=== PATIENT | male | born 1935 | race Caucasian/White ===

== ENCOUNTER 2017-07-10 10:30 | Emergency (ER) | payer MEDICARE, BC ==
[2017-07-10 12:05] LABS: Bilirubin Negative (Negative); Blood, Urine Large (Negative); Glucose, Urine (Dipstick) Negative (Negative); Ketone, Urine Negative (Negative); Nitrite Negative (Negative); Protein, Urine (Dipstick) 100 mg/dL (Neg-Trace); Urobilinogen 0.2 mg/dL (0.2-1.0)
[2017-07-10 12:06] LABS: Bacteria/HPF Rare-Few HPF (None Seen); Hyaline Casts/LPF NONE SEEN LPF (0-3 Hyaline); RBC/HPF GREATER THAN 50-TNTC HPF (0-3); Squamous Epithelial 0-3 HPF (0-3)
[2017-07-10 12:37] LABS: #Eosinphils 0.2 thou/uL (0.0-0.7); #Lymphocytes 0.8 thou/uL (1.20-3.40); #Monocytes 1.4 thou/uL (0.11-0.59); #Neutrophils 12.2 thou/uL (1.40-6.50); %Basophils 0.1 % (0.0-1.0); %Eosinophils 1.1 % (0.0-10.0); %Lymphocytes 5.3 % (21.0-51.0); %Monocytes 9.4 % (0.0-10.0); Hematocrit 53.4 % (42.0-52.0); Mean Platelet Volume 6.5 fL (7.4-10.4); Red Blood Cell (RBC) Count 5.76 mill/uL (4.70-6.10); White Blood Cell (WBC) Count 14.5 thou/uL (4.8-10.8)
[2017-07-10 13:03] LABS: ALT (SGPT) 27 U/L (8-55); AST (SGOT) 23 U/L (5-34); Alkaline Phosphatase 94 U/L (40-150); Anion Gap 12 mmol/L (10-20); BUN (Urea Nitrogen) 18 mg/dL (8.4-25.7); Bilirubin, Total 1.3 mg/dL (0.2-1.2); Calc. Creatinine Clearance 0 mL/min (70-130); Calcium 9.8 mg/dL (7.8-10.44); Carbon Dioxide 29 mmol/L (23-31); Chloride 98 mmol/L (98-107); Estimated GFR-MDRD 73
== END 2017-07-10 13:30 | disposition home or self-care (01) ==
LOC: ERS 10:30
DX: N30.01 Acute cystitis with hematuria (principal); I10 Essential (primary) hypertension; I25.10 Atherosclerotic heart disease of native coronary artery without angina pectoris; J44.9 Chronic obstructive pulmonary disease, unspecified; M10.9 Gout, unspecified; Z79.82 Long term (current) use of aspirin; Z79.899 Other long term (current) drug therapy
CPT/HCPCS: 36415; 80053; 81003; 81015; 85025; 87077; 87086; 87186; 99283

== ENCOUNTER 2017-12-23 17:07 | Emergency (ER) | payer MEDICARE, BC ==
[2017-12-23 17:59] LABS: Bilirubin Negative (Negative); Blood, Urine Negative (Negative); Clarity CLEAR (Clear); Glucose, Urine (Dipstick) Negative (Negative); Leukocyte Negative (Negative); Nitrite Negative (Negative); Protein, Urine (Dipstick) Negative (Neg-Trace); Specific Gravity, Urine 1.016 (1.002-1.036); Urobilinogen 0.2 mg/dL (0.2-1.0)
[2017-12-23 18:13] LABS: #Eosinphils 0.2 thou/uL (0.0-0.7); #Neutrophils 6.7 thou/uL (1.40-6.50); %Basophils 0.3 % (0.0-1.0); %Eosinophils 2.3 % (0.0-10.0); %Lymphocytes 11.1 % (21.0-51.0); %Monocytes 10.8 % (0.0-10.0); %Neutrophils 75.5 % (42.0-75.0); Hemoglobin 17.1 g/dL (14.0-18.0); Mean Corpuscular Hemoglobin 30.8 pg (27.0-31.0); Mean Corpuscular Volume 90.5 fl (80.0-94.0); Mean Platelet Volume 6.6 fL (7.4-10.4); Platelet Count 207 thou/uL (130-400); RBC Distribution Width 12.9 % (11.5-14.5); Red Blood Cell (RBC) Count 5.56 mill/uL (4.70-6.10); White Blood Cell (WBC) Count 8.8 thou/uL (4.8-10.8)
[2017-12-23 18:18] LABS: INR-International Normal Ratio 1.1; PTT 26.7 SEC (22.9-36.1); Prothrombin Time 14.2 SEC (12.0-14.7)
[2017-12-23 18:34] LABS: ALT (SGPT) 19 U/L (8-55); AST (SGOT) 23 U/L (5-34); Albumin 4.1 g/dL (3.4-4.8); Alkaline Phosphatase 76 U/L (40-150); Anion Gap 13 mmol/L (10-20); BUN (Urea Nitrogen) 15 mg/dL (8.4-25.7); Calc. Creatinine Clearance 0 mL/min (70-130); Calcium 9.5 mg/dL (7.8-10.44); Carbon Dioxide 26 mmol/L (23-31); Chloride 100 mmol/L (98-107); Estimated GFR-MDRD 76; Globulin 2.6 g/dL (2.4-3.5); Glucose 114 mg/dL (83-110); Iron 63 ug/dL (65-175); Iron Binding Capacity, Total 328 mcg/dL (261-462); Potassium 3.5 mmol/L (3.5-5.1); Protein, Total 6.7 g/dL (5.8-8.1); Sodium 135 mmol/L (136-145)
== END 2017-12-23 19:13 | disposition home or self-care (01) ==
LOC: ERS 17:07
DX: K64.4 Residual hemorrhoidal skin tags (principal); I25.10 Atherosclerotic heart disease of native coronary artery without angina pectoris; I10 Essential (primary) hypertension; J44.9 Chronic obstructive pulmonary disease, unspecified; M10.9 Gout, unspecified; Z79.899 Other long term (current) drug therapy; Z79.82 Long term (current) use of aspirin
CPT/HCPCS: 36415; 80053; 81003; 82274; 82728; 83540; 83550; 85025; 85610; 85730; 86850; 86900; 86901; 99284

== ENCOUNTER 2018-09-18 00:36 | Inpatient (IN) | payer MEDICARE, BC ==
[2018-09-18 01:33] LABS: #Basophils 0.1 thou/uL (0.0-0.2); #Lymphocytes 0.6 thou/uL (1.20-3.40); #Monocytes 1.8 thou/uL (0.11-0.59); #Neutrophils 13.6 thou/uL (1.40-6.50); %Basophils 0.5 % (0.0-1.0); %Eosinophils 0.2 % (0.0-10.0); %Lymphocytes 3.7 % (21.0-51.0); %Monocytes 10.9 % (0.0-10.0); %Neutrophils 84.7 % (42.0-75.0); Hemoglobin 17.3 g/dL (14.0-18.0); Mean Corpuscular HGB CONC 33.2 g/dL (32.0-36.0); Mean Corpuscular Hemoglobin 30.5 pg (27.0-31.0); Mean Corpuscular Volume 91.9 fL (78.0-98.0); Mean Platelet Volume 6.7 fL (7.4-10.4); Platelet Count 235 thou/uL (130-400); RBC Distribution Width 12.9 % (11.5-14.5); Red Blood Cell (RBC) Count 5.68 mill/uL (4.70-6.10); White Blood Cell (WBC) Count 16.1 thou/uL (4.8-10.8)
[2018-09-18] MEDS ORDERED: Ondansetron PF 4 MG/2 ML Vial ONE ×2 (01:34→06:12)
[2018-09-18 01:52] LABS: ALT (SGPT) 21 U/L (8-55); AST (SGOT) 18 U/L (5-34); Albumin 3.9 g/dL (3.4-4.8); Alkaline Phosphatase 75 U/L (40-150); Anion Gap 16 mmol/L (10-20); BUN (Urea Nitrogen) 24 mg/dL (8.4-25.7); Calc. Creatinine Clearance 0 mL/min (70-130); Calcium 9.4 mg/dL (7.8-10.44); Carbon Dioxide 26 mmol/L (23-31); Chloride 95 mmol/L (98-107); Estimated GFR-MDRD 72; Globulin 2.6 g/dL (2.4-3.5); Glucose 169 mg/dL (83-110); Potassium 3.6 mmol/L (3.5-5.1); Protein, Total 6.5 g/dL (5.8-8.1); Sodium 133 mmol/L (136-145)
[2018-09-18] MEDS ORDERED: diphenhydrAMINE 50 MG CAP ONE (02:49)
[2018-09-18] MEDS ORDERED: Morphine 4 MG/ML VIAL ONE ×2 (02:49→06:11)
[2018-09-18] MEDS ORDERED: HYDROcodone/Acetaminophen 5/325 mg Tablet PO PRN ×3 (06:00→20:11)
[2018-09-18] MEDS ORDERED: Ondansetron PF 4 MG/2 ML Vial IVP PRN (06:00)
[2018-09-18] MEDS ORDERED: Acetaminophen 325 MG TAB PO PRN (06:00)
[2018-09-18] MEDS ORDERED: Ondansetron ODT 4 MG TAB SL PRN (06:00)
[2018-09-18] MEDS ORDERED: cefTRIAXone\\ROCEPHIN 1 GM VIAL ONE (06:12)
[2018-09-18] MEDS ORDERED: Acetaminophen 500 MG TAB ONE (06:12)
[2018-09-18 06:41] LABS: Troponin I Less than 0.010 ng/mL (< 0.028)
--- NOTE | 2018-09-18 07:46 | CT ---
CT OF THE BRAIN WITHOUT CONTRAST: INDICATION: History of headache, dizziness, and shortness of breath. COMPARISON: None. FINDINGS: There is mild generalized cerebral and cerebellar atrophy. There is mild chronic small-vessel white matter ischemic change. The septum pellucidum and third ventricle are midline. No acute infarct, he morrhage, or infarct is present. The sitka lenses have been replaced. Paranasal sinuses are clear. 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 Th ere is healed deformity involving the nasal bones. There are bilateral mastoid effusions. IMPRESSION: 1. No acute intracranial abnormality. 2. Bilateral mastoid effusions. Findings can be related to otomastoid disease. POS: BH
--- NOTE | 2018-09-18 07:58 | CT ---
CTA OF THE CHEST AND ABDOMEN UTILIZING IV CONTRAST AND 3D REFORMATTED IMAGING AND AORTIC DISSECTION P ROTOCOL. INDICATION: Chest and back pain in an 83-year-old male. The patient is also having generalized dizziness and haider rtness of breath. FINDINGS: CHEST: There is postprocedural change of a coronary artery bypass. No pathologically enlarged lymph nodes a re evident. No definite central pulmonary embolus is noted. No aortic dissection, occlusion, or tim nosis is evident. Great vessels origins are widely patent. There are patchy airspace opacities involving the lung bases, particularly the lower lobes as well as portions of the right middle lobe suspicious for areas of pneumonia. Recommend correlation. There is scattered emphysema. Respiratory motion artifact limits image detail of the lung parenchyma. No pneumothorax or holly pleural effusion is evident. ABDOMEN: There are small hypodensities in the left hepatic lobe stable to a comparison dated 02/01/2014 suspici ous for small cysts. A smaller cyst is also seen within segment 6 of the right hepatic lobe. Small left adrenal nodule is stable. Bilateral kidneys are normal appearing. Spleen and pancreas ar e normal appearing. There is scattered colonic diverticula. The abdominal aorta at the level of the hiatus measures 2.6 cm. The abdominal aorta at the level of the renal arteries measures 2.7. There is worsening aneurysmal dilatation of the infrarenal abdomina l aorta. The proximal segment of the infrarenal abdominal aorta, extending approximately 4 cm below the level of the lowest left renal artery origin, measures 3.3 to 3.6 cm, which has increased in size from the prior exam where it measured 2.6 and 2.9 cm. The bilobed, larger infrarenal aortic aneurys m has worsened in size and measures 8.3 cm in length (cranial-caudad) to the level of the common alena c bifurcation. The proximal region of aneurysmal dilatation now measures 5.7 cm (AP dimension) where it previously measured 4.4 cm. The distal portion of the bilobed aneurysm measures 5.4 cm (AP dimen preeti) where it previously measured 4.3 cm. 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 There has been interval development of a wedge compression abnormality of L4 since the comparison CT in 2013; however, this was present on an MRI of the lumbar spine dated 08/02/2015. IMPRESSION: 1. Worsening infrarenal abdominal aortic aneurysm when compared to a prior CT of the abdomen and pel vis dated 02/01/2014. There is a bilobed infrarenal abdominal aortic aneurysm that now measures in gr eatest AP diameter to 5.7 cm. There is no overt CTA evident to suggest a rupture. 2. Worsening aneurysmal dilatation, common iliac arteries to 1.5 cm. 3. Bilateral lower lobe airspace opacity suspicious for pneumonia. 4. Emphysema. 5. Stable postsurgical change of prior coronary artery bypass graft. 6. Colonic diverticulosis. 7. Stable hepatic cyst. 8. Stable compression abnormality of L4. POS: BH
[2018-09-18] MEDS ORDERED: Morphine 4 MG/ML VIAL SLOW IVP SCH (08:15)
[2018-09-18 08:26] VITALS: BMI 33.0
[2018-09-18 09:59] LABS: Troponin I Less than 0.010 ng/mL (< 0.028)
[2018-09-18] MEDS ORDERED: ISOVUE-370 76%-LOCM 1 ML ONE (10:15)
--- NOTE | 2018-09-18 10:46 | RAD ---
RADIOGRAPH CHEST 1 VIEW: Date: 07/19/2019. Time: 1:03 a.m. HISTORY: An 83-year-old male with dyspnea and generalized weakness. COMPARISON: 11/13/2017. FINDINGS: Sternotomy wires. Surgical clips over the left side of the cardiac shadow. Patchy airspace densitie s at the bases of the bilateral lower lung zones appear similar to the prior study. These could repr esent recurrent acute infiltrates, but are favored to be chronic pulmonary densities. No consolidati on in the mid and upper lung zones. No pulmonary edema or pneumothorax. IMPRESSION: 1. Patchy pulmonary densities at the bilateral lower lung zones, similar to last year. 2. Status post coronary artery bypass graft surgery. 3. No interval change overall. WAYNE [] POS: NETTIE
[2018-09-18] MEDS ORDERED: Guaifenesin DM 100-10/5 ML UDCUP PO PRN (13:13)
[2018-09-18] MEDS ORDERED: Morphine 4 MG/ML VIAL SLOW IVP PRN (13:22)
--- NOTE | 2018-09-18 14:18 | HP ---
REASON FOR ADMISSION: Pneumonia, COPD exacerbation, mid thoracic pain for evaluation. HISTORY OF PRESENTING ILLNESS: The patient gives history of having gone for cardiac rehab yesterday. He apparently felt weak after that. He also started to have a frontal headache and was shaking all over. He had lower back pain, which slowly moved up to his mid back area. All of this was getting worse and the patient called EMS and was brought here. He also mentions that he has chronic cough, but has had yellow sputum from last 2 to 3 days now. He is also on a Medrol Dosepak for right ear suspected eustachian tube issue from last week or so now via primary care physician. No complaints of chest pain, palpitations, or PND. No complaints of abdominal pain or nausea. No complaints of diarrhea. Has not had any recent fall per . He normally ambulates by himself. PAST MEDICAL AND SURGICAL HISTORY: History of coronary artery disease, COPD, history of prostatectomy done when he was 60 years old, history of rectal bleed while he was on blood thinners and had to be transfused 5 units of packed cells in the past. History of chronic AAA, which has been closely monitored by Dr. Segura , gout, CABG, and history of paroxysmal atrial fibrillation with prior ablation done in [place]. CURRENT MEDICATIONS: The patient is on: 1. Allopurinol 300 mg p.o. daily. 2. Aspirin 81 mg p.o. daily. 3. Symbicort 160/4.5 mcg two puffs twice daily. 4. Calcium with vitamin D 1 tablet twice daily. 5. Hydrochlorothiazide 50 mg p.o. q.a.m. 6. Lisinopril 40 mg p.o. q.p.m. 7. Medrol Dosepak from last 3 days. 8. Crestor 10 mg p.o. at bedtime. 9. CoQ10 of 400 mg p.o. daily. ALLERGIES: NO KNOWN DRUG ALLERGIES. PERSONAL HISTORY: Does not abuse alcohol or drugs. Quit smoking years ago. Lives with his . FAMILY HISTORY: Mother at the age of 92 from old age. Father of massive NC at the age of 65. Code status was discussed with the patient and his at bedside. He wants to be a DNAR. REVIEW OF SYSTEMS: CONSTITUTIONAL: Negative for weight loss or gain, ability to conduct usual activities. SKIN: Negative for rash, itching. EYES: Negative for double vision, pain. ENT/MOUTH: Negative for nose bleeding, neck stiffness, pain, tenderness. CARDIOVASCULAR: Negative for palpitations, dyspnea on exertion, orthopnea. RESPIRATORY: Negative for shortness of breath, wheezing, cough, hemoptysis, fever or night sweats. GASTROINTESTINAL: Negative for poor appetite, abdominal pain, heartburn, nausea , vomiting, constipation, or diarrhea. GENITOURINARY: Negative for urgency, frequency, dysuria, nocturia. MUSCULOSKELETAL: Negative for pain, swelling. NEUROLOGIC/PSYCHIATRIC: Negative for anxiety, depression. ALLERGY/IMMUNOLOGIC: Negative for skin rash, bleeding tendency. PHYSICAL EXAMINATION: GENERAL: The patient is an 83-year-old male, who is currently not in any acute distress at present. VITAL SIGNS: Blood pressure 154/84, pulse 76 per minute, respiratory rate 18 per minute, temperature 98.5 degrees Fahrenheit, and saturating 92% on room air. NECK: Supple. No elevated JVD. Kernig's sign is -ve. HEENT: Eyes; extraocular muscles intact. Pupils reacting to light. Oral cavity, mucous membranes are dry. No exudates or congestion. CARDIOVASCULAR: S1 and S2 heard. Regular rhythm. RESPIRATORY SYSTEM: Air entry 1+ bilateral. Occasional wheezes plus bilateral rhonchi plus bilateral. ABDOMEN: Soft. Bowel sounds heard. No tenderness, rigidity, or guarding. No pulsatile mass felt on abdominal examination. EXTREMITIES: Mild peripheral edema. No calf tenderness. VASCULAR SYSTEM: Peripheral pulses 1+ bilateral. No ischemic ulcerations or gangrene. CENTRAL NERVOUS SYSTEM: No gross focal deficits noted. The patient is lethargic, but oriented. He has just received a morphine dose. PSYCHIATRIC SYSTEM: No obvious hallucinations or delusions. LABORATORY DATA: White count of 16, hemoglobin and hematocrit of 17 and 52, platelet count is 235, MCV is 91 with 84% neutrophils. Sodium 133, serum chloride 95, BUN 24, creatinine 1.0, serum glucose 169. Troponin x3 is negative. CK level 63. Liver enzymes within normal limits. Albumin is 3.9. CT brain done showed no acute intracranial abnormality. Chest x-ray showed patchy pulmonary densities at bilateral lower lung zones. CT dissection protocol done showed worsening infrarenal abdominal aortic aneurysm. When compared to a prior CAT scan done in January 2014, there is a bilobed infrarenal AAA that now measures in greatest AP diameter of 5.7 cm, no evidence to suggest rupture. 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 Emphysematous changes are seen. Colonic diverticulosis is seen. Stable compression abnormality of L4. EKG done shows sinus rhythm at 67 beats per minute. CLINICAL IMPRESSION AND PLAN: The patient will be admitted to telemetry for pneumonia, chronic obstructive pulmonary disease exacerbation, has thoracic area pain with prior history of abdominal aortic aneurysm for evaluation due to enlargement as well. The patient will be on Levaquin 500 mg IV daily. He will also be on DuoNeb and short course of steroids, which will be rapidly tapered. We will continue his aspirin, allopurinol, lisinopril, Crestor, and CoQ10 as before. We will obtain consultation with Dr. Lewis, who is covering Dr. Segura and Dr. Sanchez for Pulmonology as well. The patient's back pain is localized now to mostly lower cervical and upper and mid thoracic area now. He apparently had severe lower back pain on arrival, which has now moved up to his thoracic area. I have reviewed his CAT scan as well. We will get an opinion from Dr. Lewis, if his enlarging AAA is the cause for his back pain. I will also place him on a small dose of beta lian. Job ID: [id number] [facility]
[2018-09-18] MEDS: Levofloxacin 750 mg/D5W 500 MG in Premix Bag 1 BAG IVPB SCH (14:47)
--- NOTE | 2018-09-18 16:53 | CON ---
DATE OF CONSULTATION: 09/18/2018 CONSULTING PHYSICIAN: Dr. Torres. REASON FOR CONSULTATION: Pneumonia. HISTORY OF PRESENT ILLNESS: The patient is an 83-year-old male, who was in his usual state of health until yesterday when he went to cardiac rehab, began feeling weak all over. Overnight, he has had a low-grade fever. He has developed back pain beneath the left rib cage. He has been very restless throughout the day today. PAST MEDICAL HISTORY: 1. Chronic obstructive pulmonary disease. 2. Coronary artery disease. 3. Prostatic hypertrophy. 4. Rectal bleeding. 5. Infrarenal abdominal aortic aneurysm. 6. Paroxysmal atrial fibrillation. PAST SURGICAL HISTORY: 1. He had a cardiac ablation. 2. Coronary artery bypass grafting surgery in 1999. 3. Prostatectomy. 4. Right knee arthroscopy with meniscal repair. FAMILY MEDICAL HISTORY: No known lung problems. SOCIAL HISTORY: He quit smoking some time ago. Does not consume alcohol. Does not use illicit drugs. Lives at home with his . MEDICATIONS: Prior to admission: 1. Allopurinol 300 mg daily. 2. Aspirin 81 mg daily. 3. Symbicort 160/4.5 two puffs twice daily. 4. Calcium with vitamin D 1 tablet twice daily. 5. Hydrochlorothiazide 50 mg every morning. 6. Lisinopril 40 mg daily. 7. Medrol Dosepak for 3 days prior to admission. 8. Crestor 10 mg daily. 9. Coenzyme Q10 of 400 mg daily. REVIEW OF SYSTEMS: He has had a low-grade fever and chills. He has had some nausea. No vomiting. No hemoptysis, melena, or hematochezia. No hematuria. No dysuria. He has had back pain. He has had nasal congestion. Otherwise, a 12-point review of systems was negative. PHYSICAL EXAMINATION: VITAL SIGNS: Temperature 97.5 with T-max of 100.0, pulse 76, respirations 20, O2 saturation 96% on 2 L, and blood pressure 124/60. GENERAL: The patient is somewhat somnolent. He is arousable. He does not appear to be in the respiratory distress. HEENT: Pupils reactive. Sclerae anicteric. Oropharynx clear. NECK: No adenopathy. No JVD. LUNGS: He has inspiratory crackles in left base, otherwise are clear bilaterally. CARDIAC: S1 and S2, regular without murmur. ABDOMEN: Soft, nontender, and nondistended. EXTREMITIES: No clubbing, cyanosis, edema. LABORATORY DATA: Sodium 133, potassium 3.6, BUN 24, creatinine 1.0, glucose 169. Troponin less than 0.01. White blood cell count 16, hematocrit 52, and platelet count 235. CT of the chest shows a left lower lobe infiltrate. ASSESSMENT: 1. Community-acquired pneumonia. 2. Acute hypoxic respiratory failure. 3. History of infrarenal abdominal aortic aneurysm. PLAN: I think most of his pain is probably due to pneumonia, perhaps pleurisy. I agree with current treatment including the steroids, antibiotics, nebulization treatments, and low-flow oxygen. I will be happy to follow with you. TIME SPENT: Above encompassed 50 minutes time, of that time, greater than 50% was spent with the patient and/or the patient's unit in the hospital. Job ID: [id number]
[2018-09-18] MEDS: Mometasone/Formoterol 120 PUFF INHALER INH SCH (19:01)
--- NOTE | 2018-09-18 20:13 | PDOC.EVN ---
Event Note - Event Note Event Note: Called by Rn for pt not responding to pain medication, c/o chest pain associated with pneumonia and not relieved with morphine. Will add norco prn 1 or 2 tabs q4h and monitor.
[2018-09-18] MEDS: Rosuvastatin 10 MG TAB PO SCH (20:49)
[2018-09-18] MEDS: Magnesium Oxide 250 MG TAB PO SCH (20:49)
[2018-09-18] MEDS: Metoprolol Tartrate 25 MG TAB PO SCH (20:50)
[2018-09-18] MEDS: HYDROcodone/Acetaminophen 5/325 mg Tablet PO PRN (20:50)
[2018-09-18] MEDS: Famotidine 20 MG TAB PO SCH (20:50)
[2018-09-18] MEDS: Lisinopril 20 MG TAB PO SCH (20:51)
[2018-09-18] MEDS ORDERED: Lorazepam 2 MG/ML VIAL SLOW IVP SCH (23:00)
--- NOTE | 2018-09-19 00:24 | CON ---
DATE OF CONSULTATION: 09/18/2018 PRIMARY CARE PHYSICIAN: Dr. Jakob Vasquez. OTHER CONSULTING PHYSICIAN: Dr. Sanchez. CHIEF COMPLAINT: Back pain. HISTORY OF PRESENT ILLNESS: The patient is an 83-year-old man with coronary disease who has severe COPD, quit smoking around the time of his coronary bypass surgery 15 to 20 years ago, but he remains quite limited by his breathing, getting short of breath just simply walking in the grocery store. His describes his COPD is being at baseline as "just eats his lunch." He drove to his exercise group for rehab yesterday evening and while there apparently began feeling quite weak and had fairly sudden onset of back pain. The patient has had a sleepless night and has required narcotics for pain control and has considerable difficulty in providing answers in a lucid manner. His describes the pain that he had described to her as being low to mid interscapular. It was fairly sudden in onset and has been persistent, now going on about 24 hours. He has not had any abdominal pain. Today, he denied fever to me, but Dr. Sanchez elicited history described as low-grade fever. In the emergency room here, his temperature was 98.5, but about eight 8 o'clock this morning, he had a temperature of 100.0. He denies any productive cough, and his does say that over the last few days, his breathing has been worse than normal. PAST MEDICAL HISTORY: Significant for: 1. Coronary artery disease, having undergone coronary artery bypass grafting. 2. He has a history of atrial fibrillation. 3. Hypertension. 4. Severe COPD. 5. He has had previous diverticular bleeding. 6. Previous L3-4 laminectomy and diskectomy in 2014. HOME MEDICATIONS: Are listed as: 1. Lisinopril 40 mg in the evening. 2. Hydrochlorothiazide 50 mg in the morning. 3. Crestor 10 mg in the evening. 4. Baby aspirin daily. 5. Zyrtec 10 mg daily. 6. Symbicort 2 puffs b.i.d. 7. Allopurinol 300 mg daily. 8. Coenzyme Q10 400 mg daily. 9. Magnesium oxide 500 mg b.i.d. 10. Calcium and vitamin 3 supplements. 11. He is currently on a Medrol Dosepak. 12. He has been started on Levaquin b.i.d. 13. Lopressor. 14. Solu-Medrol. 15. Pepcid. 16. Low-dose Lovenox. SOCIAL HISTORY: He quit smoking many years ago. REVIEW OF SYSTEMS: Positive for his difficulty breathing that has been worse of late. He denies any abdominal pain. PHYSICAL EXAMINATION: GENERAL: He is a large man who is somewhat confused and agitated. VITAL SIGNS: Heart rate is 84, blood pressure 146/64, temperature is 98.1, although he had a temperature of a 100.0 about eight 8 o'clock this morning, 2 L nasal cannula, has O2 sats 95-96 percent. LUNGS: He has distant breath sounds with rales at the right base. Regular rate and rhythm. ABDOMEN: Obese, but soft and nontender. SPINE: He has no tenderness along his spine. EXTREMITIES: He has palpable femoral pulses. I was not able to appreciate pedal pulses. LABORATORY EXAM: Shows a hemoglobin of 17.3 and hematocrit of 52.2, platelets 235,000, white count is 16.1. Sodium was 133, otherwise his electrolytes were normal. BUN 24, creatinine 1.0, glucose 169. LFTs were normal. Calcium was 9.4. Troponins were normal. IMAGING: CT scanning for dissection showed patchiness in his lungs. Chest x-ray shows what looks like right lower lobe infiltrates, more pronounced in his baseline x-ray from 2 or 3 years ago. There is no aortic dissection. He has multi lobulated abdominal aortic aneurysm with the primary dilatation being in the AP diameter. I looked at this in axial, sagittal and coronal sections and I would agree with the radiologist's interpretation that the AP diameter is in the 5.6 to 5.7 cm range. He had A CT and MRI of his back in January of 2015 [facility]. The report of which described 4.6 cm AAA. He had a CT scan here in January of 2014 where his aneurysm was described as 4.3 cm in AP diameter. In transverse diameter, the aneurysm on his current film appears to be on the order of about 3.8 to 4.0 cm. It has mildly dilated iliacs. The aneurysmal dilatation; however, seems to go up to within about a half a cm of the renal arteries. There is no surrounding streaking or hemorrhage that I can appreciate. IMPRESSION AND RECOMMENDATIONS: The severity of his back pain is not consistent with his aneurysm as a cause. There is no associated rupture or streaking to suggest inflammation. He apparently had a measurement of about 5.3 cm about 3 or 4 months ago, and while this current measurement would seem to be larger, I would not expect such severe persistent pain with that degree of enlargement. He has had a lumbar compression fracture before, but I do not appreciate any new ones or any in the thoracic spine that would account for this. It may very well be pleuritic pain from his pneumonia. At this point, he needs to be treated for what would appear to represent a pneumonia, but it may very well be worthwhile to initiate planning for aneurysm repair if it is at all feasible. I will review this with Dr. Segura who has previously seen him for this problem. Job ID: [id number]
[2018-09-19] MEDS: HYDROcodone/Acetaminophen 5/325 mg Tablet PO PRN (00:44)
[2018-09-19] MEDS ORDERED: ALPRAZolam 0.25 MG TAB PO SCH (00:45)
[2018-09-19 06:11] LABS: Anion Gap 17 mmol/L (10-20); BUN (Urea Nitrogen) 25 mg/dL (8.4-25.7); Calc. Creatinine Clearance 100 mL/min (70-130); Calcium 9.9 mg/dL (7.8-10.44); Carbon Dioxide 27 mmol/L (23-31); Chloride 93 mmol/L (98-107); Estimated GFR-MDRD 81; Glucose 137 mg/dL (83-110); Sodium 133 mmol/L (136-145)
[2018-09-19 06:12] LABS: Band 10 % (5-11); Hemoglobin 17.2 g/dL (14.0-18.0); Lymphocytes 2 % (21-51); MDiff Complete? YES; Mean Corpuscular HGB CONC 32.6 g/dL (32.0-36.0); Mean Corpuscular Hemoglobin 30.4 pg (27.0-31.0); Mean Platelet Volume 7.3 fL (7.4-10.4); Monocytes 6 % (0-10); Neutrophil 82 % (42-75); Platelet Count 169 thou/uL (130-400); Platelet Morphology Comment Appears Adequate; RBC Distribution Width 12.8 % (11.5-14.5); RBC Morphology Normal; Red Blood Cell (RBC) Count 5.66 mill/uL (4.70-6.10); White Blood Cell (WBC) Count 19.6 thou/uL (4.8-10.8)
[2018-09-19] MEDS: Mometasone/Formoterol 120 PUFF INHALER INH SCH ×2 (07:49→19:04)
[2018-09-19] MEDS: Magnesium Oxide 250 MG TAB PO SCH ×2 (09:40→20:42)
[2018-09-19] MEDS: Famotidine 20 MG TAB PO SCH ×2 (09:41→20:42)
[2018-09-19] MEDS: Aspirin 81 mg Enteric Coated Tablet PO SCH (09:41)
[2018-09-19] MEDS: Allopurinol 300 MG TAB PO SCH (09:41)
[2018-09-19] MEDS: Metoprolol Tartrate 25 MG TAB PO SCH ×2 (09:41→20:42)
[2018-09-19] MEDS: Enoxaparin Sodium 40 MG/0.4 ML SYRINGE SC SCH (09:42)
[2018-09-19] MEDS: Ubidecarenone 50 MG CAP PO SCH (09:42)
[2018-09-19] MEDS: Acetaminophen 325 MG TAB PO PRN ×2 (12:14→18:27)
--- NOTE | 2018-09-19 12:29 | PDOC.PN ---
- Subjective Encounter Start Date: 09/19/18 Encounter Start Time: 10:15 Subjective: is lethargic but arousable -: had a rough night, says he was acting high - Objective Resuscitation Status - Order Detail: 09/18/18 13:05 Resuscitation Status Routine Resuscitation Status: DNAR: NO Resuscitation Discussed with: d/w patient and at bedside MAR Reviewed: Yes Vital Signs & Weight: Vital Signs (12 hours) Temp Pulse Resp BP Pulse Ox 09/19/18 11:22 64 18 96 09/19/18 08:34 65 18 94 L 09/19/18 08:00 93 L 09/19/18 07:49 64 18 94 L 09/19/18 07:47 97.4 F L 62 16 111/63 93 L 09/19/18 04:45 97.1 F L 63 14 131/62 93 L Weight Weight 243 lb 3.2 oz I&O: 09/18/18 09/19/18 09/20/18 06:59 06:59 06:59 Intake Total 1020 Output Total 300 Balance 720 Result Diagrams: 09/19/18 04:43 09/19/18 04:43 Phys Exam - Physical Examination HEENT: PERRLA, moist MMs Neck: no JVD, supple Respiratory: no wheezing, no rales Cardiovascular: RRR, no significant murmur Gastrointestinal: soft, non-tender, positive bowel sounds Musculoskeletal: no edema, pulses present Neurological: non-focal, moves all 4 limbs Dx/Plan (1) PNA (pneumonia) Code(s): J18.9 - PNEUMONIA, UNSPECIFIED ORGANISM Status: Acute Qualifiers: Pneumonia type: due to unspecified organism (2) AAA (abdominal aortic aneurysm) Code(s): I71.4 - ABDOMINAL AORTIC ANEURYSM, WITHOUT RUPTURE Status: Chronic Qualifiers: Presence of rupture: without rupture Qualified Code(s): I71.4 - Abdominal aortic aneurysm, without rupture (3) Back pain Code(s): M54.9 - DORSALGIA, UNSPECIFIED Status: Acute Qualifiers: Back pain location: thoracic back pain Chronicity: acute Back pain laterality: midline Qualified Code(s): M54.6 - Pain in thoracic spine (4) CAD (coronary artery disease) Code(s): I25.10 - ATHSCL HEART DISEASE OF [place] CORONARY ARTERY W/O ANG PCTRS Status: Chronic Qualifiers: Coronary Disease-Associated Artery/Lesion type: bypass graft [place] vs. transplanted heart: [place] heart Associated angina: without angina Qualified Code(s): I25.810 - Atherosclerosis of coronary artery bypass graft(s) without angina pectoris (5) HTN (hypertension) Code(s): I10 - ESSENTIAL (PRIMARY) HYPERTENSION Status: Chronic Qualifiers: Hypertension type: essential hypertension Qualified Code(s): I10 - Essential (primary) hypertension (6) Afib Code(s): I48.91 - UNSPECIFIED ATRIAL FIBRILLATION Status: Chronic Qualifiers: Atrial fibrillation type: paroxysmal Qualified Code(s): I48.0 - Paroxysmal atrial fibrillation Comment: in sinus (7) Gout Code(s): M10.9 - GOUT, UNSPECIFIED Status: Chronic Qualifiers: Gout site: unspecified site Chronicity: chronic Presence of tophus: without tophus (8) COPD (chronic obstructive pulmonary disease) Status: Chronic Qualifiers: COPD type: chronic bronchitis - Plan is on levaquin, nebs -: dc steroids, concerned he is not sleeping and getting high on it -: continue asp, lopressor, crestor and lisinopril -: start motrin tid, use morphine only for severe pain -: avoid narcotics/anxiolytics * . Review of Systems - Medications/Allergies Allergies/Adverse Reactions: Allergies Allergy/AdvReac Type Severity Reaction Status Date / Time No Known Allergies Allergy Verified 03/05/15 18:35 Medications: Current Medications Acetaminophen (Tylenol) 650 mg PO Q4H PRN PRN Reason: Headache/Fever/Mild Pain (1-3) Last Admin: 09/19/18 12:14 Dose: 650 mg Albuterol/Ipratropium (Duoneb) 3 ml NEB [id number] [facility] Last Admin: 09/19/18 11:22 Dose: 3 ml Allopurinol (Zyloprim) 300 mg PO QAM [facility] Last Admin: 09/19/18 09:41 Dose: 300 mg Aspirin (Ecotrin) 81 mg PO DAILY [facility] Last Admin: 09/19/18 09:41 Dose: 81 mg Coenzyme Q10 (Coenzyme Q10) 400 mg PO DAILY [facility] Last Admin: 09/19/18 09:42 Dose: 400 mg Enoxaparin Sodium (Lovenox) 40 mg SC 0900 [facility] Last Admin: 09/19/18 09:42 Dose: 40 mg Famotidine (Pepcid) 20 mg PO BID [facility] Last Admin: 09/19/18 09:41 Dose: 20 mg Guaifenesin/Dextromethorphan (Robitussin Dm) 15 ml PO Q4H PRN PRN Reason: Cough Levofloxacin 500 mg/ Device 100 mls @ 100 mls/hr IVPB Q24HR [facility] Last Admin: 09/18/18 14:47 Dose: 100 mls Ibuprofen (Motrin) 400 mg PO TID [facility] Lisinopril (Zestril) 40 mg PO QPM [facility] Last Admin: 09/18/18 20:51 Dose: 40 mg Magnesium Oxide (Magnesium Oxide) 500 mg PO BID [facility] Last Admin: 09/19/18 09:40 Dose: 500 mg Metoprolol Tartrate (Lopressor) 25 mg PO BID [facility] Last Admin: 09/19/18 09:41 Dose: 25 mg Mometasone Furoate/Formoterol Fumar (Dulera 200 Mcg/5 Mcg Inhaler) 2 puff INH BID-RT [facility] Last Admin: 09/19/18 07:49 Dose: 2 puff Morphine Sulfate (Morphine) 2 mg SLOW IVP Q4H PRN PRN Reason: .Chest Pain/BP Elevations Last Admin: 09/18/18 16:36 Dose: 2 mg Rosuvastatin Calcium (Crestor) 10 mg PO HS [facility] Last Admin: 09/18/18 20:49 Dose: 10 mg Senna/Docusate Sodium (Senokot S) 2 tab PO BID PRN PRN Reason: Constipation Sodium Chloride (Flush - Normal Saline) 10 ml IVF Q12HR [facility] Last Admin: 09/19/18 09:44 Dose: 10 ml Sodium Chloride (Flush - Normal Saline) 10 ml IVF PRN PRN PRN Reason: Saline Flush Temazepam (Restoril) 15 mg PO HSPRN PRN PRN Reason: Insomnia
--- NOTE | 2018-09-19 13:14 | PRG ---
DATE OF SERVICE: 09/19/2018 SUBJECTIVE: The patient remains very confused, but seems a little better compared when I saw him yesterday. OBJECTIVE: VITAL SIGNS: Temperature 97.4, pulse 64, respirations 18, O2 saturation 96% on 2 L. HEENT: Unremarkable. NECK: No JVD. LUNGS: He has crackles right base greater than left. CARDIAC: S1 and S2. Regular. ABDOMEN: Soft. EXTREMITIES: No edema. LABORATORY DATA: White blood cell count 19.6, hematocrit 52.6, and platelet count 169. Sodium 133, potassium 4, chloride 93, CO2 of 27, BUN 25, creatinine 0.9, glucose 137. ASSESSMENT: 1. Pneumonia. 2. Infrarenal abdominal aortic aneurysm. PLAN: Continue antibiotics for pneumonia. No further recommendations at this time. Job ID: [id number]
[2018-09-19] MEDS: Levofloxacin 750 mg/D5W 500 MG in Premix Bag 1 BAG IVPB SCH (14:22)
[2018-09-19] MEDS: Ibuprofen 200 MG TAB PO SCH ×2 (14:24→20:42)
[2018-09-19] MEDS: Rosuvastatin 10 MG TAB PO SCH (20:42)
[2018-09-19] MEDS: Lisinopril 20 MG TAB PO SCH (20:42)
[2018-09-20] MEDS ORDERED: ALPRAZolam 0.25 MG TAB PO SCH (02:30)
[2018-09-20] MEDS: Mometasone/Formoterol 120 PUFF INHALER INH SCH ×2 (06:57→19:07)
--- NOTE | 2018-09-20 10:53 | PRG ---
DATE OF SERVICE: 09/20/2018 SUBJECTIVE: He remains floridly confused, but stable. OBJECTIVE: VITAL SIGNS: Temperature is 97.8, pulse 70, O2 saturation 95% on 2 L, and blood pressure 111/66. GENERAL: He will not follow any commands for me. HEENT: Otherwise, unremarkable. NECK: No JVD. LUNGS: He has slight diminished breath sounds in the bases. CARDIAC: S1 and S2, regular. ABDOMEN: Soft, nontender. EXTREMITIES: No edema. ASSESSMENT: 1. Encephalopathy. 2. Pneumonia. PLAN: I would recommend stopping any morphine and hydrocodone. I will change his Levaquin over to Rocephin and Zithromax. I agree with discontinuation of steroids. Job ID: [id number]
--- NOTE | 2018-09-20 11:07 | PDOC.PN ---
- Subjective Encounter Start Date: 09/20/18 Encounter Start Time: 09:45 Subjective: is lethargic, not oriented -: at bedside tells me he slept from 8pm to 12mn and from then on has bee -: -n thrashing around. Not eating much - Objective Resuscitation Status - Order Detail: 09/18/18 13:05 Resuscitation Status Routine Resuscitation Status: DNAR: NO Resuscitation Discussed with: d/w patient and at bedside MAR Reviewed: Yes Vital Signs & Weight: Vital Signs (12 hours) Temp Pulse Resp BP Pulse Ox 09/20/18 07:46 97.8 F 70 115/66 95 09/20/18 07:45 97 09/20/18 06:53 88 L 09/20/18 06:50 88 20 88 L 09/20/18 03:23 97.6 F 65 20 118/76 100 09/20/18 00:33 86 22 H Weight Weight 243 lb 3.2 oz I&O: 09/19/18 09/20/18 09/21/18 06:59 06:59 06:59 Intake Total 1020 620 Output Total 300 Balance 720 620 Result Diagrams: 09/19/18 04:43 09/19/18 04:43 Phys Exam - Physical Examination HEENT: PERRLA, sclera anicteric dry mucosa Neck: no JVD, supple Respiratory: no rales, no rhonchi Cardiovascular: RRR, no significant murmur Gastrointestinal: soft, no distention, positive bowel sounds Musculoskeletal: no edema, pulses present Neurological: non-focal, moves all 4 limbs Dx/Plan (1) PNA (pneumonia) Code(s): J18.9 - PNEUMONIA, UNSPECIFIED ORGANISM Status: Acute Qualifiers: Pneumonia type: due to unspecified organism (2) AAA (abdominal aortic aneurysm) Code(s): I71.4 - ABDOMINAL AORTIC ANEURYSM, WITHOUT RUPTURE Status: Chronic Qualifiers: Presence of rupture: without rupture Qualified Code(s): I71.4 - Abdominal aortic aneurysm, without rupture (3) Back pain Code(s): M54.9 - DORSALGIA, UNSPECIFIED Status: Acute Qualifiers: Back pain location: thoracic back pain Chronicity: acute Back pain laterality: midline Qualified Code(s): M54.6 - Pain in thoracic spine (4) CAD (coronary artery disease) Code(s): I25.10 - ATHSCL HEART DISEASE OF [place] CORONARY ARTERY W/O ANG PCTRS Status: Chronic Qualifiers: Coronary Disease-Associated Artery/Lesion type: bypass graft [place] vs. transplanted heart: [place] heart Associated angina: without angina Qualified Code(s): I25.810 - Atherosclerosis of coronary artery bypass graft(s) without angina pectoris (5) HTN (hypertension) Code(s): I10 - ESSENTIAL (PRIMARY) HYPERTENSION Status: Chronic Qualifiers: Hypertension type: essential hypertension Qualified Code(s): I10 - Essential (primary) hypertension (6) Afib Code(s): I48.91 - UNSPECIFIED ATRIAL FIBRILLATION Status: Chronic Qualifiers: Atrial fibrillation type: paroxysmal Qualified Code(s): I48.0 - Paroxysmal atrial fibrillation Comment: in sinus (7) Gout Code(s): M10.9 - GOUT, UNSPECIFIED Status: Chronic Qualifiers: Gout site: unspecified site Chronicity: chronic Presence of tophus: without tophus (8) COPD (chronic obstructive pulmonary disease) Status: Chronic Qualifiers: COPD type: chronic bronchitis (9) Delirium Code(s): R41.0 - DISORIENTATION, UNSPECIFIED Status: Acute - Plan tx to medical, mickey mederos, q8h vitals, all of this to decrease stimulation -: is delirious at present, no narcotics or additional pyschotropics -: is on ceftriaxone and zithromax, nebs, motrin, use morphine only for severe -: -pain, gentle iv hydration until he starts eating -: dc lisinopril for now * . Review of Systems - Medications/Allergies Allergies/Adverse Reactions: Allergies Allergy/AdvReac Type Severity Reaction Status Date / Time No Known Allergies Allergy Verified 03/05/15 18:35 Medications: Current Medications Acetaminophen (Tylenol) 650 mg PO Q4H PRN PRN Reason: Headache/Fever/Mild Pain (1-3) Last Admin: 09/19/18 18:27 Dose: 650 mg Albuterol/Ipratropium (Duoneb) 3 ml NEB [id number] [facility] Last Admin: 09/20/18 06:50 Dose: 3 ml Allopurinol (Zyloprim) 300 mg PO QAM [facility] Last Admin: 09/19/18 09:41 Dose: 300 mg Aspirin (Ecotrin) 81 mg PO DAILY [facility] Last Admin: 09/19/18 09:41 Dose: 81 mg Coenzyme Q10 (Coenzyme Q10) 400 mg PO DAILY [facility] Last Admin: 09/19/18 09:42 Dose: 400 mg Enoxaparin Sodium (Lovenox) 40 mg SC 0900 [facility] Last Admin: 09/19/18 09:42 Dose: 40 mg Famotidine (Pepcid) 20 mg PO BID [facility] Last Admin: 09/19/18 20:42 Dose: 20 mg Guaifenesin/Dextromethorphan (Robitussin Dm) 15 ml PO Q4H PRN PRN Reason: Cough Azithromycin 250 mg/ Sodium (Chloride) 250 mls @ 250 mls/hr IVPB 1200 [facility] Ceftriaxone Sodium 2 gm/ (Sodium Chloride) 100 mls @ 200 mls/hr IVPB 1100 [facility] Sodium Chloride (Normal Saline 0.9%) 1,000 mls @ 70 mls/hr IV .[id number] [facility] Ibuprofen (Motrin) 400 mg PO TID [facility] Last Admin: 09/19/18 20:42 Dose: 400 mg Magnesium Oxide (Magnesium Oxide) 500 mg PO BID [facility] Last Admin: 09/19/18 20:42 Dose: 500 mg Metoprolol Tartrate (Lopressor) 25 mg PO BID [facility] Last Admin: 09/19/18 20:42 Dose: 25 mg Mometasone Furoate/Formoterol Fumar (Dulera 200 Mcg/5 Mcg Inhaler) 2 puff INH BID-RT [facility] Last Admin: 09/20/18 06:57 Dose: 2 puff Rosuvastatin Calcium (Crestor) 10 mg PO HS [facility] Last Admin: 09/19/18 20:42 Dose: 10 mg Senna/Docusate Sodium (Senokot S) 2 tab PO BID PRN PRN Reason: Constipation Sodium Chloride (Flush - Normal Saline) 10 ml IVF Q12HR [facility] Last Admin: 09/19/18 21:22 Dose: 10 ml Sodium Chloride (Flush - Normal Saline) 10 ml IVF PRN PRN PRN Reason: Saline Flush Last Admin: 09/19/18 14:23 Dose: 10 ml Temazepam (Restoril) 15 mg PO HSPRN PRN PRN Reason: Insomnia
[2018-09-20] MEDS: cefTRIAXone\\ROCEPHIN 2 GM in Sodium Chloride 0.9% 100 ML IVPB SCH (11:13)
[2018-09-20] MEDS: Enoxaparin Sodium 40 MG/0.4 ML SYRINGE SC SCH (11:14)
[2018-09-20] MEDS: Azithromycin 250 MG in Sodium Chloride 0.9% 250 ML 250 ML IVPB SCH (11:59)
[2018-09-20] MEDS: Sodium Chloride 0.9% 1,000 ML IV SCH (11:59)
[2018-09-20] MEDS: Ibuprofen 200 MG TAB PO SCH ×3 (12:16→20:20)
--- NOTE | 2018-09-20 16:26 | PQF ---
MACK HOLLINGSWORTH VINAYA KUMAR MD [id number] [facility] [id number] CLINICAL DOCUMENTATION IMPROVEMENT CLARIFICATION FORM: ICD-10 Updated PLEASE DO AN ADDENDUM TO THE PROGRESS NOTE WITH ANY DOCUMENTATION UPDATES OR ADDITIONS AND CARRY THROUGH TO DC SUMMARY. THANK YOU. DATE: 09-20-18 ATTN: DR. SOOD Please exercise your independent, professional judgment in responding to the clarification form. Clinical indicators are provided on the bottom of this form for your review Please check appropriate box(s): [ ] Acute Metabolic Encephalopathy [ ] Toxic Encephalopathy [ x ] Delirium [ ] Other diagnosis [ ] Unable to determine In addition, please specify: Present on Admission (POA): [x ] Yes [ ] No [ ] Unable to determine For continuity of documentation, please document condition throughout progress notes and discharge summary. Thank You. CLINICAL INDICATORS - SIGNS / SYMPTOMS / LABS H&P: PNA; COPD EXAC; 09-19 (NINFA): REMAINS VERY CONFUSED - ENCEPHALOPATHY 09-19 (INDIGO): SAYS HE WAS ACTING HIGH 09-20 (INDIGO): LETHARGIC, NOT ORIENTED - DELIRIUM RISK FACTORS H&P: PNA; COPD EXAC; AAA - THORACIC PAIN 09-18 (NINFA): ACUTE HYPOXIC RESP FAILURE TREATMENTS: 09-19 (INDIGO): AVOID NARCOTICS/ ANXIOLYTICS - DC STEROIDS, CONCERNED HE IS NOT SLEEPING AND GETTING HIGH ON IT. THANK YOU, CHERYL (This form is maintained as a part of the permanent medical record) 2015 [employer]. All Rights Reserved Cheryl Angulo RN, BS [email or web address] [facility]
[2018-09-20] MEDS: Metoprolol Tartrate 25 MG TAB PO SCH ×2 (17:01→20:20)
[2018-09-20] MEDS: Magnesium Oxide 250 MG TAB PO SCH ×2 (17:01→20:20)
[2018-09-20] MEDS: Famotidine 20 MG TAB PO SCH ×2 (17:03→20:20)
[2018-09-20] MEDS: Allopurinol 300 MG TAB PO SCH (18:07)
[2018-09-20] MEDS: Aspirin 81 mg Enteric Coated Tablet PO SCH (18:07)
[2018-09-20] MEDS: Ubidecarenone 50 MG CAP PO SCH (18:07)
[2018-09-20] MEDS: Rosuvastatin 10 MG TAB PO SCH (20:20)
[2018-09-21] MEDS: Sodium Chloride 0.9% 1,000 ML IV SCH ×3 (05:47→21:08)
[2018-09-21] MEDS: Mometasone/Formoterol 120 PUFF INHALER INH SCH ×2 (07:38→19:02)
[2018-09-21 08:36] LABS: Hemoglobin 16.2 g/dL (14.0-18.0); Mean Corpuscular HGB CONC 32.6 g/dL (32.0-36.0); Mean Corpuscular Hemoglobin 29.6 pg (27.0-31.0); Mean Corpuscular Volume 90.8 fL (78.0-98.0); Mean Platelet Volume 7.1 fL (7.4-10.4); Platelet Count 184 thou/uL (130-400); RBC Distribution Width 12.7 % (11.5-14.5); Red Blood Cell (RBC) Count 5.46 mill/uL (4.70-6.10); White Blood Cell (WBC) Count 12.6 thou/uL (4.8-10.8)
[2018-09-21 08:48] LABS: ALT (SGPT) 18 U/L (8-55); AST (SGOT) 24 U/L (5-34); Alkaline Phosphatase 64 U/L (40-150); Anion Gap 12 mmol/L (10-20); BUN (Urea Nitrogen) 25 mg/dL (8.4-25.7); Bilirubin, Total 0.9 mg/dL (0.2-1.2); Calc. Creatinine Clearance 108 mL/min (70-130); Calcium 9.3 mg/dL (7.8-10.44); Carbon Dioxide 29 mmol/L (23-31); Chloride 98 mmol/L (98-107); Estimated GFR-MDRD 88; Globulin 2.9 g/dL (2.4-3.5); Glucose 113 mg/dL (83-110); Potassium 3.8 mmol/L (3.5-5.1); Protein, Total 5.9 g/dL (5.8-8.1); Sodium 135 mmol/L (136-145)
[2018-09-21 09:06] LABS: Band 5 % (5-11); Lymphocytes 4 % (21-51); MDiff Complete? YES; Monocytes 4 % (0-10); Neutrophil 84 % (42-75); RBC Morphology Normal; Reactive Lymphocytes 3 % (0-10)
--- NOTE | 2018-09-21 09:18 | PRG ---
DATE OF SERVICE: 09/21/2018 SUBJECTIVE: The patient is more awake. He is very deaf, but he can answer questions when I yell in his ear. OBJECTIVE: VITAL SIGNS: Temperature is 97.6, pulse is 89, respirations 20, O2 saturation 96% on room air, and blood pressure 142/80. HEENT: Unremarkable. NECK: No JVD. LUNGS: Fairly clear anteriorly. CARDIAC: S1, S2. Regular. ABDOMEN: Soft. EXTREMITIES: No edema. LABORATORY DATA: White blood cell count 12.6, hematocrit 49.6, and platelet count 184. Sodium 135, potassium 3.8, BUN 25, creatinine 0.8, glucose 113. ASSESSMENT: Pneumonia, slightly improved. PLAN: Continue with ceftriaxone and azithromycin. Once he is eating, then I would discontinue his IV fluids. Job ID: [id number]
[2018-09-21] MEDS: Enoxaparin Sodium 40 MG/0.4 ML SYRINGE SC SCH (09:58)
--- NOTE | 2018-09-21 10:40 | PDOC.PN ---
- Subjective Encounter Start Date: 09/21/18 Encounter Start Time: 09:00 Subjective: still encephalopathic, likely has sleep apnea -: and son at bedside -: is seen moving all extremities - Objective Resuscitation Status - Order Detail: 09/18/18 13:05 Resuscitation Status Routine Resuscitation Status: DNAR: NO Resuscitation Discussed with: d/w patient and at bedside MAR Reviewed: Yes Vital Signs & Weight: Vital Signs (12 hours) Temp Pulse Resp BP Pulse Ox 09/21/18 08:00 97.6 F 89 20 148/80 H 96 09/21/18 07:35 85 20 90 L 09/21/18 00:52 83 22 H Weight Weight 243 lb 3.2 oz I&O: 09/20/18 09/21/18 09/22/18 06:59 06:59 06:59 Intake Total 620 Balance 620 Result Diagrams: 09/21/18 08:12 09/21/18 08:12 Phys Exam - Physical Examination HEENT: PERRLA dry mucosa Neck: no JVD, supple Respiratory: no wheezing, no rales rhonchi+ Cardiovascular: RRR, no significant murmur Gastrointestinal: soft, non-tender, positive bowel sounds Musculoskeletal: no edema, pulses present Neurological: non-focal, moves all 4 limbs Dx/Plan (1) Delirium Code(s): R41.0 - DISORIENTATION, UNSPECIFIED Status: Acute (2) PNA (pneumonia) Code(s): J18.9 - PNEUMONIA, UNSPECIFIED ORGANISM Status: Acute Qualifiers: Pneumonia type: due to unspecified organism (3) AAA (abdominal aortic aneurysm) Code(s): I71.4 - ABDOMINAL AORTIC ANEURYSM, WITHOUT RUPTURE Status: Chronic Qualifiers: Presence of rupture: without rupture Qualified Code(s): I71.4 - Abdominal aortic aneurysm, without rupture (4) Back pain Code(s): M54.9 - DORSALGIA, UNSPECIFIED Status: Acute Qualifiers: Back pain location: thoracic back pain Chronicity: acute Back pain laterality: midline Qualified Code(s): M54.6 - Pain in thoracic spine (5) CAD (coronary artery disease) Code(s): I25.10 - ATHSCL HEART DISEASE OF [place] CORONARY ARTERY W/O ANG PCTRS Status: Chronic Qualifiers: Coronary Disease-Associated Artery/Lesion type: bypass graft [place] vs. transplanted heart: [place] heart Associated angina: without angina Qualified Code(s): I25.810 - Atherosclerosis of coronary artery bypass graft(s) without angina pectoris (6) HTN (hypertension) Code(s): I10 - ESSENTIAL (PRIMARY) HYPERTENSION Status: Chronic Qualifiers: Hypertension type: essential hypertension Qualified Code(s): I10 - Essential (primary) hypertension (7) Afib Code(s): I48.91 - UNSPECIFIED ATRIAL FIBRILLATION Status: Chronic Qualifiers: Atrial fibrillation type: paroxysmal Qualified Code(s): I48.0 - Paroxysmal atrial fibrillation Comment: in sinus (8) Gout Code(s): M10.9 - GOUT, UNSPECIFIED Status: Chronic Qualifiers: Gout site: unspecified site Chronicity: chronic Presence of tophus: without tophus (9) COPD (chronic obstructive pulmonary disease) Status: Chronic Qualifiers: COPD type: chronic bronchitis - Plan is on ceftriaxone, zithromax, nebs -: delirium is multifactorial, still sleeping for the most part -: Initial CT brain was -ve for cva, will f/u later this afternoon -: continue asp, crestor and lopressor if he can swallow -: ongoing swallow eval if he is waking up * . Review of Systems - Medications/Allergies Allergies/Adverse Reactions: Allergies Allergy/AdvReac Type Severity Reaction Status Date / Time No Known Allergies Allergy Verified 03/05/15 18:35 Medications: Current Medications Acetaminophen (Tylenol) 650 mg PO Q4H PRN PRN Reason: Headache/Fever/Mild Pain (1-3) Last Admin: 09/19/18 18:27 Dose: 650 mg Albuterol/Ipratropium (Duoneb) 3 ml NEB [id number] [facility] Last Admin: 09/21/18 07:35 Dose: 3 ml Allopurinol (Zyloprim) 300 mg PO QAM [facility] Last Admin: 09/20/18 18:07 Dose: Not Given Aspirin (Ecotrin) 81 mg PO DAILY [facility] Last Admin: 09/20/18 18:07 Dose: Not Given Coenzyme Q10 (Coenzyme Q10) 400 mg PO DAILY [facility] Last Admin: 09/20/18 18:07 Dose: Not Given Enoxaparin Sodium (Lovenox) 40 mg SC 0900 [facility] Last Admin: 09/21/18 09:58 Dose: 40 mg Famotidine (Pepcid) 20 mg PO BID [facility] Last Admin: 09/20/18 20:20 Dose: Not Given Guaifenesin/Dextromethorphan (Robitussin Dm) 15 ml PO Q4H PRN PRN Reason: Cough Azithromycin 250 mg/ Sodium (Chloride) 250 mls @ 250 mls/hr IVPB 1200 [facility] Last Admin: 09/20/18 11:59 Dose: 250 mls Ceftriaxone Sodium 2 gm/ (Sodium Chloride) 100 mls @ 200 mls/hr IVPB 1100 [facility] Last Admin: 09/20/18 11:13 Dose: 100 mls Sodium Chloride (Normal Saline 0.9%) 1,000 mls @ 70 mls/hr IV .[id number] [facility] Last Admin: 09/21/18 05:47 Dose: 1,000 mls Ibuprofen (Motrin) 400 mg PO TID [facility] Last Admin: 09/20/18 20:20 Dose: Not Given Magnesium Oxide (Magnesium Oxide) 500 mg PO BID [facility] Last Admin: 09/20/18 20:20 Dose: Not Given Metoprolol Tartrate (Lopressor) 25 mg PO BID [facility] Last Admin: 09/20/18 20:20 Dose: Not Given Mometasone Furoate/Formoterol Fumar (Dulera 200 Mcg/5 Mcg Inhaler) 2 puff INH BID-RT [facility] Last Admin: 09/21/18 07:38 Dose: 2 puff Rosuvastatin Calcium (Crestor) 10 mg PO HS [facility] Last Admin: 09/20/18 20:20 Dose: Not Given Senna/Docusate Sodium (Senokot S) 2 tab PO BID PRN PRN Reason: Constipation Sodium Chloride (Flush - Normal Saline) 10 ml IVF Q12HR [facility] Last Admin: 09/20/18 20:21 Dose: Not Given Sodium Chloride (Flush - Normal Saline) 10 ml IVF PRN PRN PRN Reason: Saline Flush Last Admin: 09/19/18 14:23 Dose: 10 ml Temazepam (Restoril) 15 mg PO HSPRN PRN PRN Reason: Insomnia
[2018-09-21] MEDS: Ubidecarenone 50 MG CAP PO SCH (11:41)
[2018-09-21] MEDS: cefTRIAXone\\ROCEPHIN 2 GM in Sodium Chloride 0.9% 100 ML IVPB SCH (11:41)
[2018-09-21] MEDS: Ibuprofen 200 MG TAB PO SCH ×3 (11:42→21:06)
[2018-09-21] MEDS: Azithromycin 250 MG in Sodium Chloride 0.9% 250 ML 250 ML IVPB SCH (14:08)
[2018-09-21] MEDS: Magnesium Oxide 250 MG TAB PO SCH ×2 (14:37→21:07)
[2018-09-21] MEDS: Famotidine 20 MG TAB PO SCH ×2 (14:37→21:06)
[2018-09-21] MEDS: Metoprolol Tartrate 25 MG TAB PO SCH ×2 (14:37→21:07)
[2018-09-21] MEDS: Aspirin 81 mg Enteric Coated Tablet PO SCH (17:27)
[2018-09-21] MEDS: Allopurinol 300 MG TAB PO SCH (17:27)
[2018-09-21] MEDS: Rosuvastatin 10 MG TAB PO SCH (21:07)
[2018-09-22] MEDS: Sodium Chloride 0.9% 1,000 ML IV SCH (05:34)
[2018-09-22] MEDS: Mometasone/Formoterol 120 PUFF INHALER INH SCH ×2 (06:56→18:21)
[2018-09-22] MEDS ORDERED: Lorazepam 2 MG/ML VIAL SLOW IVP PRN (09:26)
[2018-09-22] MEDS: Enoxaparin Sodium 40 MG/0.4 ML SYRINGE SC SCH (09:45)
--- NOTE | 2018-09-22 10:05 | PRG ---
DATE OF SERVICE: 09/22/2018 SUBJECTIVE: He remains confused, but he will wake up when you shout into his ear. OBJECTIVE: VITAL SIGNS: Temperature 98.2, pulse 79, respirations 20, O2 saturation 92% on room air, blood pressure 164/75. HEENT: Unremarkable. NECK: No JVD. LUNGS: Coarse breath sounds. CARDIAC: S1, S2. Regular. ABDOMEN: Soft. EXTREMITIES: No edema. ASSESSMENT: 1. Continued encephalopathy. 2. Pneumonia. PLAN: I will go and check an ABG to make sure he is not hypercapnic. Dr. Torres is planning to have the patient undergo lumbar puncture. Job ID: [id number]
[2018-09-22 10:11] LABS: Actual Bicarbonate (HCO3a) 27.2 mEq/L (22-28); Analyzer IN Cardio OR; Base Excess (BEa) 4.1 mEq/L (-2.0 to +3.0); CO2 Tension 36.2 mmHg (35.0-45.0); Calcium, Ionized 1.14 mmol/L (1.12-1.30); Carboxyhemoglobin (COHb) 1.6 gm% (0.0-3.0); O2 Tension (PaO2) 54.2 mmHg (> 60.0); Potassium - ABG Lab 3.35 mmol/L (3.70-5.30); pH, Arterial 7.49 (7.35-7.45)
[2018-09-22 10:12] LABS: Puncture Site RR
--- NOTE | 2018-09-22 10:25 | PDOC.PN ---
- Subjective Encounter Start Date: 09/22/18 Encounter Start Time: 08:45 Subjective: wakes up and responds to verbal stimuli but soon falls asleep -: at bedside -: sat on bed with PT with max support - Objective Resuscitation Status - Order Detail: 09/18/18 13:05 Resuscitation Status Routine Resuscitation Status: DNAR: NO Resuscitation Discussed with: d/w patient and at bedside MAR Reviewed: Yes Vital Signs & Weight: Vital Signs (12 hours) Temp Pulse Resp BP Pulse Ox 09/22/18 07:20 98.2 F 79 20 164/75 H 92 L 09/22/18 06:53 75 20 92 L 09/22/18 03:09 98.2 F 76 20 166/69 H 93 L 09/22/18 00:24 90 20 95 09/22/18 00:00 172/81 H 96 Weight Weight 243 lb 3.2 oz Result Diagrams: 09/21/18 08:12 09/21/18 08:12 Phys Exam - Physical Examination HEENT: PERRLA, sclera anicteric dry mucosa Neck: no JVD, supple Respiratory: no wheezing, no rales Cardiovascular: RRR, no significant murmur Gastrointestinal: soft, non-tender, positive bowel sounds Musculoskeletal: no edema, pulses present Neurological: non-focal, moves all 4 limbs Dx/Plan (1) Delirium Code(s): R41.0 - DISORIENTATION, UNSPECIFIED Status: Acute (2) PNA (pneumonia) Code(s): J18.9 - PNEUMONIA, UNSPECIFIED ORGANISM Status: Acute Qualifiers: Pneumonia type: due to unspecified organism (3) AAA (abdominal aortic aneurysm) Code(s): I71.4 - ABDOMINAL AORTIC ANEURYSM, WITHOUT RUPTURE Status: Chronic Qualifiers: Presence of rupture: without rupture Qualified Code(s): I71.4 - Abdominal aortic aneurysm, without rupture (4) Back pain Code(s): M54.9 - DORSALGIA, UNSPECIFIED Status: Acute Qualifiers: Back pain location: thoracic back pain Chronicity: acute Back pain laterality: midline Qualified Code(s): M54.6 - Pain in thoracic spine (5) CAD (coronary artery disease) Code(s): I25.10 - ATHSCL HEART DISEASE OF [place] CORONARY ARTERY W/O ANG PCTRS Status: Chronic Qualifiers: Coronary Disease-Associated Artery/Lesion type: bypass graft [place] vs. transplanted heart: [place] heart Associated angina: without angina Qualified Code(s): I25.810 - Atherosclerosis of coronary artery bypass graft(s) without angina pectoris (6) HTN (hypertension) Code(s): I10 - ESSENTIAL (PRIMARY) HYPERTENSION Status: Chronic Qualifiers: Hypertension type: essential hypertension Qualified Code(s): I10 - Essential (primary) hypertension (7) Afib Code(s): I48.91 - UNSPECIFIED ATRIAL FIBRILLATION Status: Chronic Qualifiers: Atrial fibrillation type: paroxysmal Qualified Code(s): I48.0 - Paroxysmal atrial fibrillation Comment: in sinus (8) Gout Code(s): M10.9 - GOUT, UNSPECIFIED Status: Chronic Qualifiers: Gout site: unspecified site Chronicity: chronic Presence of tophus: without tophus (9) COPD (chronic obstructive pulmonary disease) Status: Chronic Qualifiers: COPD type: chronic bronchitis - Plan d/w intervention radiologist about LP and sedation if needed -: will also have MRI for Thoracic and lumbar spine to r/o diskitis -: initially came to ER with headache, backache and now is very somnolent -: d/w about possible resp depression with sedation, ?ativan, agrees to g -: -o ahead and do the above procedures. * . is on zithromax and ceftriaxone. I gave her the option of treating empirically with addition of vanc and acylovir in view of age and possible resp depression with sedation, she wants the procedures done to know if he has those infections. Will f/u with results. Review of Systems - Medications/Allergies Allergies/Adverse Reactions: Allergies Allergy/AdvReac Type Severity Reaction Status Date / Time No Known Allergies Allergy Verified 03/05/15 18:35 Medications: Current Medications Acetaminophen (Tylenol) 650 mg PO Q4H PRN PRN Reason: Headache/Fever/Mild Pain (1-3) Last Admin: 09/19/18 18:27 Dose: 650 mg Albuterol/Ipratropium (Duoneb) 3 ml NEB [id number] [facility] Last Admin: 09/22/18 06:53 Dose: 3 ml Allopurinol (Zyloprim) 300 mg PO QAM [facility] Last Admin: 09/21/18 17:27 Dose: Not Given Aspirin (Ecotrin) 81 mg PO DAILY [facility] Last Admin: 09/21/18 17:27 Dose: Not Given Coenzyme Q10 (Coenzyme Q10) 400 mg PO DAILY [facility] Last Admin: 09/21/18 11:41 Dose: Not Given Enoxaparin Sodium (Lovenox) 40 mg SC 0900 [facility] Last Admin: 09/22/18 09:45 Dose: Not Given Famotidine (Pepcid) 20 mg PO BID [facility] Last Admin: 09/21/18 21:06 Dose: Not Given Guaifenesin/Dextromethorphan (Robitussin Dm) 15 ml PO Q4H PRN PRN Reason: Cough Azithromycin 250 mg/ Sodium (Chloride) 250 mls @ 250 mls/hr IVPB 1200 [facility] Last Admin: 09/21/18 14:08 Dose: 250 mls Ceftriaxone Sodium 2 gm/ (Sodium Chloride) 100 mls @ 200 mls/hr IVPB 1100 [facility] Last Admin: 09/21/18 11:41 Dose: 100 mls Sodium Chloride (Normal Saline 0.9%) 1,000 mls @ 70 mls/hr IV .[id number] [facility] Last Admin: 09/22/18 05:34 Dose: Not Given Ibuprofen (Motrin) 400 mg PO TID [facility] Last Admin: 09/21/18 21:06 Dose: Not Given Lorazepam (Ativan) 1 mg SLOW IVP Q4H PRN PRN Reason: Anxiety/Agitation Lorazepam (Ativan) 2 mg SLOW IVP Q6H PRN PRN Reason: Anxiety/Agitation Magnesium Oxide (Magnesium Oxide) 500 mg PO BID [facility] Last Admin: 09/21/18 21:07 Dose: Not Given Metoprolol Tartrate (Lopressor) 25 mg PO BID [facility] Last Admin: 09/21/18 21:07 Dose: Not Given Mometasone Furoate/Formoterol Fumar (Dulera 200 Mcg/5 Mcg Inhaler) 2 puff INH BID-RT [facility] Last Admin: 09/22/18 06:56 Dose: 2 puff Rosuvastatin Calcium (Crestor) 10 mg PO HS [facility] Last Admin: 09/21/18 21:07 Dose: Not Given Senna/Docusate Sodium (Senokot S) 2 tab PO BID PRN PRN Reason: Constipation Sodium Chloride (Flush - Normal Saline) 10 ml IVF Q12HR [facility] Last Admin: 09/22/18 10:03 Dose: Not Given Sodium Chloride (Flush - Normal Saline) 10 ml IVF PRN PRN PRN Reason: Saline Flush Last Admin: 09/19/18 14:23 Dose: 10 ml Temazepam (Restoril) 15 mg PO HSPRN PRN PRN Reason: Insomnia
[2018-09-22] MEDS: Aspirin 81 mg Enteric Coated Tablet PO SCH (11:19)
[2018-09-22] MEDS: Famotidine 20 MG TAB PO SCH ×2 (11:19→22:20)
[2018-09-22] MEDS: Metoprolol Tartrate 25 MG TAB PO SCH ×2 (11:19→22:20)
[2018-09-22] MEDS: Magnesium Oxide 250 MG TAB PO SCH ×2 (11:19→22:22)
[2018-09-22] MEDS: Ubidecarenone 50 MG CAP PO SCH (11:19)
[2018-09-22] MEDS: Ibuprofen 200 MG TAB PO SCH ×3 (11:19→22:23)
[2018-09-22] MEDS: Allopurinol 300 MG TAB PO SCH (11:19)
[2018-09-22] MEDS: cefTRIAXone\\ROCEPHIN 2 GM in Sodium Chloride 0.9% 100 ML IVPB SCH (11:30)
[2018-09-22] MEDS: Azithromycin 250 MG in Sodium Chloride 0.9% 250 ML 250 ML IVPB SCH (12:00)
[2018-09-22] MEDS: Lorazepam 2 MG/ML VIAL SLOW IVP PRN (13:03)
[2018-09-22 15:24] LABS: CSF Source CSF; Clarity Clear (Clear); RBC Count - Manual 6 /cumm (None Seen); Tube # 4; WBC/NonHematics Count - Manual 316 /cumm (0-5)
--- NOTE | 2018-09-22 15:34 | RAD ---
FLUOROSCOPIC GUIDED LUMBAR PUNCTURE: History: Meningitis. FINDINGS: After explaining the procedure and obtaining informed consent, the lower back was prepped and draped in the usual sterile fashion. Sterile technique, buffered local anesthesia, fluoroscopic and a right posterolateral L2-3 approach were used to carefully advance a 20 gauge spinal needle to the thecal sa c. Position was confirmed with fluoroscopy. Opening pressure was estimated at 40 cm of CSF. A total volume of 11 cc of clear yellow tinged CSF was collected and submitted to the laboratory for analysis. Needle was removed. The patient tolerated the procedure well and was returned in unchanged condition. IMPRESSION: 1. Markedly elevated opening CSF pressure. 2. Technically successful lumbar puncture. Laboratory analysis pending. POS: NETTIE
[2018-09-22 16:30] LABS: Cell Count Non Hematic 34 %; Lymphocytes 29 %; Segmented Neutrophils 37 %
[2018-09-22] MEDS: Ampicillin 2 GM in Sodium Chloride 0.9% 100 ML IVPB SCH ×2 (16:48→20:11)
[2018-09-22] MEDS ORDERED: Vancomycin HCl 1.5 GM in Sodium Chloride 0.9% 250 ML 300 ML IVPB SCH (17:00)
[2018-09-22] MEDS: Vancomycin HCl 1.5 GM in Sodium Chloride 0.9% 250 ML 300 ML IVPB SCH (17:32)
[2018-09-22] MEDS ORDERED: Vancomycin HCl 1 GM in Premix Bag 1 BAG IVPB SCH (21:00)
[2018-09-22] MEDS: Rosuvastatin 10 MG TAB PO SCH (22:21)
[2018-09-23] MEDS: Ampicillin 2 GM in Sodium Chloride 0.9% 100 ML IVPB SCH ×6 (00:04→20:21)
[2018-09-23] MEDS: Lorazepam 2 MG/ML VIAL SLOW IVP PRN (01:33)
[2018-09-23] MEDS: Sodium Chloride 0.9% 1,000 ML IV SCH ×3 (04:15→17:47)
[2018-09-23] MEDS: cefTRIAXone\\ROCEPHIN 2 GM in Sodium Chloride 0.9% 100 ML IVPB SCH ×2 (05:07→17:46)
[2018-09-23] MEDS: Vancomycin HCl 1.5 GM in Sodium Chloride 0.9% 250 ML 300 ML IVPB SCH ×2 (05:37→18:35)
[2018-09-23] MEDS: Acetaminophen 325 MG TAB PO PRN (05:52)
[2018-09-23] MEDS: Mometasone/Formoterol 120 PUFF INHALER INH SCH ×2 (06:03→19:11)
[2018-09-23 07:22] LABS: #Eosinphils 0.2 thou/uL (0.0-0.7); #Lymphocytes 0.6 thou/uL (1.20-3.40); #Monocytes 1.6 thou/uL (0.11-0.59); %Basophils 0.1 % (0.0-1.0); %Lymphocytes 4.9 % (21.0-51.0); %Neutrophils 80.1 % (42.0-75.0); Hemoglobin 16.8 g/dL (14.0-18.0); Mean Corpuscular HGB CONC 32.7 g/dL (32.0-36.0); Mean Corpuscular Hemoglobin 29.8 pg (27.0-31.0); Mean Corpuscular Volume 91.1 fL (78.0-98.0); Mean Platelet Volume 6.6 fL (7.4-10.4); Platelet Count 178 thou/uL (130-400); RBC Distribution Width 12.7 % (11.5-14.5); Red Blood Cell (RBC) Count 5.64 mill/uL (4.70-6.10); White Blood Cell (WBC) Count 12.4 thou/uL (4.8-10.8)
[2018-09-23 07:40] LABS: Anion Gap 11 mmol/L (10-20); BUN (Urea Nitrogen) 19 mg/dL (8.4-25.7); Calc. Creatinine Clearance 124 mL/min (70-130); Calcium 8.6 mg/dL (7.8-10.44); Carbon Dioxide 27 mmol/L (23-31); Chloride 104 mmol/L (98-107); Estimated GFR-MDRD Greater than 90; Glucose 95 mg/dL (83-110); Potassium 3.5 mmol/L (3.5-5.1); Sodium 138 mmol/L (136-145)
[2018-09-23] MEDS: Ubidecarenone 50 MG CAP PO SCH (08:30)
[2018-09-23] MEDS: Metoprolol Tartrate 25 MG TAB PO SCH ×2 (08:30→20:24)
[2018-09-23] MEDS: Aspirin 81 mg Enteric Coated Tablet PO SCH (08:31)
[2018-09-23] MEDS: Allopurinol 300 MG TAB PO SCH (08:31)
[2018-09-23] MEDS: Famotidine 20 MG TAB PO SCH ×2 (08:31→20:24)
[2018-09-23] MEDS: Enoxaparin Sodium 40 MG/0.4 ML SYRINGE SC SCH (08:34)
--- NOTE | 2018-09-23 10:55 | PDOC.PN ---
- Subjective Encounter Start Date: 09/23/18 Encounter Start Time: 08:45 Subjective: awakens easily, oriented, follows verbal stimuli -: slightly better than yesterday but still falls back to sleep quickly - Objective Resuscitation Status - Order Detail: 09/18/18 13:05 Resuscitation Status Routine Resuscitation Status: DNAR: NO Resuscitation Discussed with: d/w patient and at bedside MAR Reviewed: Yes Vital Signs & Weight: Vital Signs (12 hours) Temp Pulse Resp BP Pulse Ox 09/23/18 08:50 98.3 F 70 19 152/81 H 92 L 09/23/18 06:03 75 18 91 L 09/23/18 06:00 75 18 91 L 09/23/18 04:35 100.2 F H 68 22 H 157/83 H 96 09/23/18 00:00 99.4 F 79 20 140/63 95 Weight Weight 243 lb 3.2 oz I&O: 09/22/18 09/23/18 09/24/18 06:59 06:59 06:59 Intake Total 1400 Balance 1400 Result Diagrams: 09/23/18 07:12 09/23/18 07:12 Phys Exam - Physical Examination HEENT: PERRLA dry mucosa Neck: no JVD, supple Respiratory: no wheezing, no rales Cardiovascular: RRR, no significant murmur Gastrointestinal: soft, non-tender, positive bowel sounds Musculoskeletal: no edema, pulses present Neurological: non-focal, moves all 4 limbs Dx/Plan (1) Meningitis Code(s): G03.9 - MENINGITIS, UNSPECIFIED Status: Acute (2) Diskitis Code(s): M46.40 - DISCITIS, UNSPECIFIED, SITE UNSPECIFIED Status: Suspected Qualifiers: Spinal region: thoracolumbar Qualified Code(s): M46.45 - Discitis, unspecified, thoracolumbar region (3) Delirium Code(s): R41.0 - DISORIENTATION, UNSPECIFIED Status: Acute Comment: sec to above (4) PNA (pneumonia) Code(s): J18.9 - PNEUMONIA, UNSPECIFIED ORGANISM Status: Acute Qualifiers: Pneumonia type: due to unspecified organism (5) AAA (abdominal aortic aneurysm) Code(s): I71.4 - ABDOMINAL AORTIC ANEURYSM, WITHOUT RUPTURE Status: Chronic Qualifiers: Presence of rupture: without rupture Qualified Code(s): I71.4 - Abdominal aortic aneurysm, without rupture (6) Back pain Code(s): M54.9 - DORSALGIA, UNSPECIFIED Status: Acute Qualifiers: Back pain location: thoracic back pain Chronicity: acute Back pain laterality: midline Qualified Code(s): M54.6 - Pain in thoracic spine (7) CAD (coronary artery disease) Code(s): I25.10 - ATHSCL HEART DISEASE OF [place] CORONARY ARTERY W/O ANG PCTRS Status: Chronic Qualifiers: Coronary Disease-Associated Artery/Lesion type: bypass graft [place] vs. transplanted heart: [place] heart Associated angina: without angina Qualified Code(s): I25.810 - Atherosclerosis of coronary artery bypass graft(s) without angina pectoris (8) HTN (hypertension) Code(s): I10 - ESSENTIAL (PRIMARY) HYPERTENSION Status: Chronic Qualifiers: Hypertension type: essential hypertension Qualified Code(s): I10 - Essential (primary) hypertension (9) Afib Code(s): I48.91 - UNSPECIFIED ATRIAL FIBRILLATION Status: Chronic Qualifiers: Atrial fibrillation type: paroxysmal Qualified Code(s): I48.0 - Paroxysmal atrial fibrillation Comment: in sinus (10) Gout Code(s): M10.9 - GOUT, UNSPECIFIED Status: Chronic Qualifiers: Gout site: unspecified site Chronicity: chronic Presence of tophus: without tophus (11) COPD (chronic obstructive pulmonary disease) Status: Chronic Qualifiers: COPD type: chronic bronchitis - Plan is on vanc, ceftriaxone and ampicillin for meningitis/diskitis -: MRI for spine could not be done as he was not still -: renal function stable, watch for ATN with high dose antibiotics -: d/w at bedside -: asp, lopressor and crestor, iv hydration (ef is good) * . Review of Systems - Medications/Allergies Allergies/Adverse Reactions: Allergies Allergy/AdvReac Type Severity Reaction Status Date / Time No Known Allergies Allergy Verified 03/05/15 18:35 Medications: Current Medications Acetaminophen (Tylenol) 650 mg PO Q4H PRN PRN Reason: Headache/Fever/Mild Pain (1-3) Last Admin: 09/23/18 05:52 Dose: 650 mg Albuterol/Ipratropium (Duoneb) 3 ml NEB [id number] [facility] Last Admin: 09/23/18 06:00 Dose: 3 ml Allopurinol (Zyloprim) 300 mg PO QAM [facility] Last Admin: 09/23/18 08:31 Dose: 300 mg Aspirin (Ecotrin) 81 mg PO DAILY [facility] Last Admin: 09/23/18 08:31 Dose: 81 mg Coenzyme Q10 (Coenzyme Q10) 400 mg PO DAILY [facility] Last Admin: 09/23/18 08:30 Dose: 400 mg Enoxaparin Sodium (Lovenox) 40 mg SC 0900 [facility] Last Admin: 09/23/18 08:34 Dose: 40 mg Famotidine (Pepcid) 20 mg PO BID [facility] Last Admin: 09/23/18 08:31 Dose: 20 mg Guaifenesin/Dextromethorphan (Robitussin Dm) 15 ml PO Q4H PRN PRN Reason: Cough Ampicillin Sodium 2 gm/ Sodium (Chloride) 100 mls @ 200 mls/hr IVPB Q4H [facility] Last Admin: 09/23/18 08:30 Dose: 100 mls Ceftriaxone Sodium 2 gm/ (Sodium Chloride) 100 mls @ 200 mls/hr IVPB 0500,1700 [facility] Last Admin: 09/23/18 05:07 Dose: 100 mls Vancomycin HCl 1.5 gm/ Sodium (Chloride) 300 mls @ 200 mls/hr IVPB 0600,1800 [facility] Last Admin: 09/23/18 05:37 Dose: 300 mls Sodium Chloride (Normal Saline 0.9%) 1,000 mls @ 100 mls/hr IV .Q10H [facility] Last Admin: 09/23/18 08:29 Dose: 1,000 mls Metoprolol Tartrate (Lopressor) 25 mg PO BID [facility] Last Admin: 09/23/18 08:30 Dose: 25 mg Mometasone Furoate/Formoterol Fumar (Dulera 200 Mcg/5 Mcg Inhaler) 2 puff INH BID-RT [facility] Last Admin: 09/23/18 06:03 Dose: 2 puff Rosuvastatin Calcium (Crestor) 10 mg PO HS [facility] Last Admin: 09/22/18 22:21 Dose: 10 mg Senna/Docusate Sodium (Senokot S) 2 tab PO BID PRN PRN Reason: Constipation Sodium Chloride (Flush - Normal Saline) 10 ml IVF Q12HR [facility] Last Admin: 09/23/18 08:32 Dose: Not Given Sodium Chloride (Flush - Normal Saline) 10 ml IVF PRN PRN PRN Reason: Saline Flush Last Admin: 09/19/18 14:23 Dose: 10 ml Temazepam (Restoril) 15 mg PO HSPRN PRN PRN Reason: Insomnia
--- NOTE | 2018-09-23 14:46 | PRG ---
DATE OF SERVICE: 09/23/2018 SUBJECTIVE: This patient continues to be encephalopathic. He will wake up, answer some questions. His spinal fluid yesterday showed white cells and low glucose, indicative of possible viral infection. OBJECTIVE: VITAL SIGNS: His temperature is 97.5, pulse 61, respirations 22, O2 saturation 92% on room air, blood pressure 169/73. HEENT: Otherwise, unremarkable. NECK: No JVD. CHEST: Clear. CARDIAC: S1 and S2, regular. ABDOMEN: Soft, nontender. EXTREMITIES: No edema. ASSESSMENT: 1. Constellation of symptoms now suggests some type of meningitis, whether it be viral or bacterial. Dr. Loera has been consulted. 2. Pneumonitis. 3. Diskitis. RECOMMENDATIONS: My preference would be to probably start on acyclovir also, but I will leave that up to ID and Internal Medicine. I would suggest Dobhoff tube placement and beginning enteral tube feeds for nutritional support. The patient has a do not attempt resuscitation order. Job ID: [id number]
[2018-09-23] MEDS: Rosuvastatin 10 MG TAB PO SCH (20:24)
[2018-09-24] MEDS: Ampicillin 2 GM in Sodium Chloride 0.9% 100 ML IVPB SCH ×6 (01:47→20:06)
[2018-09-24] MEDS: cefTRIAXone\\ROCEPHIN 2 GM in Sodium Chloride 0.9% 100 ML IVPB SCH ×2 (04:41→16:50)
[2018-09-24] MEDS: Sodium Chloride 0.9% 1,000 ML IV SCH ×3 (04:50→23:45)
[2018-09-24] MEDS: Vancomycin HCl 1.5 GM in Sodium Chloride 0.9% 250 ML 300 ML IVPB SCH ×2 (06:22→17:56)
[2018-09-24] MEDS: Mometasone/Formoterol 120 PUFF INHALER INH SCH ×2 (06:44→18:46)
[2018-09-24 08:41] LABS: Anion Gap 10 mmol/L (10-20); BUN (Urea Nitrogen) 18 mg/dL (8.4-25.7); Calc. Creatinine Clearance 119 mL/min (70-130); Calcium 8.4 mg/dL (7.8-10.44); Carbon Dioxide 27 mmol/L (23-31); Chloride 103 mmol/L (98-107); Estimated GFR-MDRD Greater than 90; Glucose 102 mg/dL (83-110); Potassium 3.2 mmol/L (3.5-5.1); Sodium 137 mmol/L (136-145)
[2018-09-24] MEDS: Ubidecarenone 50 MG CAP PO SCH (08:59)
[2018-09-24] MEDS: Famotidine 20 MG TAB PO SCH ×2 (09:00→20:06)
[2018-09-24] MEDS: Metoprolol Tartrate 25 MG TAB PO SCH ×2 (09:00→20:06)
[2018-09-24] MEDS: Enoxaparin Sodium 40 MG/0.4 ML SYRINGE SC SCH (09:00)
[2018-09-24] MEDS: Allopurinol 300 MG TAB PO SCH (09:01)
[2018-09-24] MEDS: Aspirin 81 mg Enteric Coated Tablet PO SCH (09:01)
[2018-09-24] MEDS: Senokot S 8.6-50 MG TAB PO PRN ×2 (09:14→20:15)
--- NOTE | 2018-09-24 09:17 | PRG ---
DATE OF SERVICE: 09/24/2018 SUBJECTIVE: Mr. Segura is actually awake and conversing this morning. He is still somewhat disoriented, but he has been able to eat and has been able to walk. OBJECTIVE: VITAL SIGNS: On exam, temperature 98.7, pulse 61, respirations 22, O2 saturation 93% on room air, and blood pressure 135/68. HEENT: Unremarkable. NECK: No JVD. LUNGS: Fairly clear anteriorly. CARDIAC: S1 and S2, regular. ABDOMEN: Soft. EXTREMITIES: No edema. ASSESSMENT: 1. Encephalopathy, improved. 2. Question of viral meningitis. 3. Pneumonia. PLAN: He is improving with current supportive care. I would suggest scaling back on his IV fluids and increasing his activity as tolerated. We are awaiting ID input and results from some send-out test to work up the possible meningitis. Job ID: [id number]
[2018-09-24 17:45] LABS: Vancomycin, Trough 13.7 ug/mL
--- NOTE | 2018-09-24 18:30 | PDOC.PN ---
- Subjective Encounter Start Date: 09/24/18 Encounter Start Time: 16:28 Subjective: Mental status is improved. patient is conversational. Reported left ear -: ache, back pain and headache prior to hospitalization. - Objective Resuscitation Status - Order Detail: 09/18/18 13:05 Resuscitation Status Routine Resuscitation Status: DNAR: NO Resuscitation Discussed with: d/w patient and at bedside MAR Reviewed: Yes Vital Signs & Weight: Vital Signs (12 hours) Temp Pulse Resp BP Pulse Ox 09/24/18 13:52 57 L 16 09/24/18 12:03 97.4 F L 64 20 156/82 H 95 09/24/18 08:00 97.4 F L 67 22 H 157/76 H 92 L 09/24/18 06:44 60 16 Weight Weight 243 lb 3.2 oz I&O: 09/23/18 09/24/18 09/25/18 06:59 06:59 06:59 Intake Total 1400 1840 360 Output Total 1450 Balance 1400 390 360 Result Diagrams: 09/23/18 07:12 09/24/18 07:05 Phys Exam - Physical Examination HEENT: moist MMs, sclera anicteric Neck: no JVD, supple, full ROM Respiratory: no rales, no rhonchi Cardiovascular: RRR, no significant murmur Gastrointestinal: soft, non-tender, no distention, positive bowel sounds Obese Musculoskeletal: no edema, pulses present Neurological: non-focal, moves all 4 limbs Psychiatric: normal affect, A&O x 3 Dx/Plan (1) Meningitis Code(s): G03.9 - MENINGITIS, UNSPECIFIED Status: Acute (2) Acute encephalopathy Code(s): G93.40 - ENCEPHALOPATHY, UNSPECIFIED Status: Acute (3) AAA (abdominal aortic aneurysm) Code(s): I71.4 - ABDOMINAL AORTIC ANEURYSM, WITHOUT RUPTURE Status: Chronic Qualifiers: Presence of rupture: without rupture Qualified Code(s): I71.4 - Abdominal aortic aneurysm, without rupture (4) Afib Code(s): I48.91 - UNSPECIFIED ATRIAL FIBRILLATION Status: Chronic Qualifiers: Atrial fibrillation type: paroxysmal Qualified Code(s): I48.0 - Paroxysmal atrial fibrillation Comment: in sinus (5) COPD (chronic obstructive pulmonary disease) Status: Chronic Qualifiers: COPD type: chronic bronchitis (6) HTN (hypertension) Code(s): I10 - ESSENTIAL (PRIMARY) HYPERTENSION Status: Chronic Qualifiers: Hypertension type: essential hypertension Qualified Code(s): I10 - Essential (primary) hypertension - Plan Continue broad spectrum antimicrobial -: Awaiting final CSF culture result. -: Awaiting ID input. -: increase activity * .
[2018-09-24] MEDS: Rosuvastatin 10 MG TAB PO SCH (20:05)
[2018-09-25] MEDS: Ampicillin 2 GM in Sodium Chloride 0.9% 100 ML IVPB SCH ×7 (00:09→22:41)
[2018-09-25] MEDS: cefTRIAXone\\ROCEPHIN 2 GM in Sodium Chloride 0.9% 100 ML IVPB SCH ×2 (05:04→16:19)
[2018-09-25 05:10] LABS: Anion Gap 9 mmol/L (10-20); BUN (Urea Nitrogen) 12 mg/dL (8.4-25.7); Calc. Creatinine Clearance 131 mL/min (70-130); Calcium 8.4 mg/dL (7.8-10.44); Carbon Dioxide 27 mmol/L (23-31); Chloride 102 mmol/L (98-107); Estimated GFR-MDRD Greater than 90; Glucose 99 mg/dL (83-110); Potassium 3.2 mmol/L (3.5-5.1); Sodium 135 mmol/L (136-145)
[2018-09-25] MEDS: Sodium Chloride 0.9% 1,000 ML IV SCH (06:33)
[2018-09-25] MEDS: Vancomycin HCl 1.5 GM in Sodium Chloride 0.9% 250 ML 300 ML IVPB SCH ×2 (06:33→18:34)
[2018-09-25] MEDS: Mometasone/Formoterol 120 PUFF INHALER INH SCH ×2 (07:50→19:03)
[2018-09-25] MEDS: Aspirin 81 mg Enteric Coated Tablet PO SCH (08:27)
[2018-09-25] MEDS: Famotidine 20 MG TAB PO SCH ×2 (08:27→21:22)
[2018-09-25] MEDS: Metoprolol Tartrate 25 MG TAB PO SCH ×2 (08:27→21:22)
[2018-09-25] MEDS: Allopurinol 300 MG TAB PO SCH (08:27)
[2018-09-25] MEDS: Ubidecarenone 50 MG CAP PO SCH (08:27)
[2018-09-25] MEDS: Enoxaparin Sodium 40 MG/0.4 ML SYRINGE SC SCH (08:28)
[2018-09-25] MEDS: Senokot S 8.6-50 MG TAB PO PRN (10:44)
[2018-09-25 13:27] LABS: Syphilis Antibody Nonreactive (Nonreactive); Syphilis Antibody Index 0.04 S/CO (<1.00 Non-Reactive)
--- NOTE | 2018-09-25 15:07 | PDOC.PN ---
- Subjective Encounter Start Date: 09/25/18 Encounter Start Time: 14:06 Subjective: No new problem. clinically improved. still on antibiotics for meningitis. -: complaining of constipation. No BM for about 6 days. No nausea or vomiting. -: Denied headache. - Objective Resuscitation Status - Order Detail: 09/18/18 13:05 Resuscitation Status Routine Resuscitation Status: DNAR: NO Resuscitation Discussed with: d/w patient and at bedside MAR Reviewed: Yes Vital Signs & Weight: Vital Signs (12 hours) Temp Pulse Resp BP Pulse Ox 09/25/18 11:15 98.4 F 63 22 H 151/77 H 96 09/25/18 08:00 97.3 F L 63 22 H 126/53 L 96 09/25/18 07:50 67 16 98 09/25/18 05:23 98.5 F 73 18 119/71 98 Weight Weight 243 lb 3.2 oz I&O: 09/24/18 09/25/18 09/26/18 06:59 06:59 06:59 Intake Total 1840 360 Output Total 1790 288 6920 Balance 390 -390 -1550 Result Diagrams: 09/23/18 07:12 09/25/18 04:26 Additional Labs: Accuchecks 09/24/18 19:37 POC Glucose 111 H Phys Exam - Physical Examination HEENT: PERRLA Neck: no JVD, supple, full ROM Respiratory: no wheezing, no rhonchi Cardiovascular: RRR, no significant murmur, no rub Gastrointestinal: soft, non-tender, no distention, positive bowel sounds Obese Musculoskeletal: no edema, pulses present Neurological: non-focal, moves all 4 limbs Psychiatric: normal affect, A&O x 3 Dx/Plan (1) Meningitis Code(s): G03.9 - MENINGITIS, UNSPECIFIED Status: Acute (2) Acute encephalopathy Code(s): G93.40 - ENCEPHALOPATHY, UNSPECIFIED Status: Acute (3) AAA (abdominal aortic aneurysm) Code(s): I71.4 - ABDOMINAL AORTIC ANEURYSM, WITHOUT RUPTURE Status: Chronic Qualifiers: Presence of rupture: without rupture Qualified Code(s): I71.4 - Abdominal aortic aneurysm, without rupture (4) Afib Code(s): I48.91 - UNSPECIFIED ATRIAL FIBRILLATION Status: Chronic Qualifiers: Atrial fibrillation type: paroxysmal Qualified Code(s): I48.0 - Paroxysmal atrial fibrillation Comment: in sinus (5) COPD (chronic obstructive pulmonary disease) Status: Chronic Qualifiers: COPD type: chronic bronchitis (6) HTN (hypertension) Code(s): I10 - ESSENTIAL (PRIMARY) HYPERTENSION Status: Chronic Qualifiers: Hypertension type: essential hypertension Qualified Code(s): I10 - Essential (primary) hypertension (7) Hypokalemia Code(s): E87.6 - HYPOKALEMIA Status: Acute - Plan Continue current antibiotics at meningitic doses -: Awaiting ID input. -: Defer antibiotics choice and duration as well as route to ID. -: Awaiting CSF final culture. so far no growth. cryptococcus negative. -: increase activity. Start stool softener. replete serum potassium. * .
[2018-09-25] MEDS ORDERED: Bisacodyl 10 MG SUPP PR SCH (16:00)
[2018-09-25] MEDS: Potassium Chloride 20 MEQ TAB PO SCH ×2 (16:20→21:21)
[2018-09-25] MEDS ORDERED: Furosemide 40 MG/4 ML VIAL SLOW IVP SCH (18:30)
--- NOTE | 2018-09-25 18:33 | PRG ---
DATE OF SERVICE: 09/25/2018 SERVICE: Pulmonary Medicine. INTERVAL HISTORY: The patient is doing fine from respiratory standpoint. Breathing a little bit better. His mentation is also much improved. Either way, he is being sent for a MRI of the brain. Denies any current chest pain, fevers, or chills. Neurologically, there has been no interval change. PHYSICAL EXAMINATION: VITAL SIGNS: Afebrile, pulse 61, blood pressure 151/76, respirations 20, and saturation 95% on room air. GENERAL: The patient is awake and alert, in no apparent distress. LUNGS: There is decent air entry with a prolonged expiratory phase. Wheezing and crackles are both predominate. Rhonchi are present, but clear with cough. HEART: Normal rate. Regular. ABDOMEN: Soft, nontender, and nondistended. Bowel sounds are positive. MUSCULOSKELETAL: No cyanosis or clubbing. No pitting in the bilateral lower extremities. NEUROLOGIC: Grossly nonfocal. LABORATORY DATA: WBC 12.4, hemoglobin 16.8, and platelets 178,000. A pH of 7.49, pCO2 of 36, and pO2 of 54. Sodium 135 and potassium 3.2. Basic metabolic profile is otherwise unremarkable. BUN is low and bicarb 27. Significant white blood cells are in the CSF, which are nonhematologic predominant cells. Total protein is elevated and glucose was reduced. Syphilis was previously nonreactive. Cryptococcal antigen and spinal fluid cultures negative to-date. Respiratory cultures are unremarkable. ASSESSMENT: 1. Meningitis, possible. 2. Community-acquired pneumonia. 3. Acute hypoxic respiratory failure, improving. DISCUSSION AND PLAN: Since his mentation is improving, we will continue supportive care. I will provide the patient a dose of Lasix today. Pulmonary/Critical Care will continue to follow along for the time being. Potassium will be replaced today. Job ID: [id number]
[2018-09-25 20:07] LABS: HSV 2 - DNA Negative (Negative)
[2018-09-25] MEDS: Rosuvastatin 10 MG TAB PO SCH (21:21)
[2018-09-25] MEDS: Polyethylene Glycol 3350 17 GM Packet PO SCH (21:22)
[2018-09-25] MEDS: Temazepam 15 MG CAP PO PRN (21:22)
--- NOTE | 2018-09-25 23:15 | CON ---
DATE OF CONSULTATION: 09/25/2018 REASON FOR CONSULTATION: Possible meningitis. HISTORY OF PRESENT ILLNESS: This is an 83-year-old, history of coronary artery disease, COPD, and gout, admitted with a new onset of weakness, frontal headaches. He had some lower back pain, which then went up to the mid back area and some cough associated with it. He also has right ear pain and possible eustachian tube issue and is on Medrol Dosepak. On arrival, he did not appear in distress. His BP was 150/80, pulse 76 and respiratory rate 18, temperature 98.5, O2 saturation 92% on room air. His ocular movements were conjugate and white cell count 16,000, platelets 235 with 84% neutrophils, creatinine 1.0. CT brain showed no acute intracranial abnormality. Chest x-ray with chronic changes. Initial impression was possible pneumonia, COPD exacerbation. He was given levofloxacin. On September 20, he appeared lethargic, was somewhat disoriented, not eating much and at that time he was on azithromycin and ceftriaxone. On September 21, he was still encephalopathic. On September 22, he was again encephalopathic and very drowsy. On September 23, he was more easily responsive and a CSF evaluation had been ordered and it was abnormal with WBCs of 300 and a low glucose. He was placed on 3 drug regimen for presumptive meningitis. Results are discussed below. Currently, the patient is awake. He is still a little bit confused. He did not know where he was. He did follow commands, though denied any headaches. No respiratory symptoms. No chest pain. No abdominal pain or diarrhea. No genitourinary symptoms. He was urinating with an indwelling catheter. PAST MEDICAL HISTORY: 1. Coronary disease. 2. COPD. 3. Prostatectomy. 4. AAA monitored by Dr. Segura. 5. Gout. 6. Atrial fibrillation with prior ablation. ALLERGIES: NONE. FAMILY HISTORY: Coronary artery disease. CURRENT MEDICATIONS: 1. Zyloprim. 2. Ampicillin. 3. Rocephin. 4. Vancomycin. PHYSICAL EXAMINATION: VITAL SIGNS: T-max 100.2, now he is 98.4, blood pressure 150/77, pulse 63, respirations 16-20, O2 saturation 96%. SKIN: Not remarkable. HEENT : Ocular movements conjugate. I did not have a chance of examining his middle ear. He did not have evidence of tenderness in the mastoids. His oral cavity was normal. NECK: Supple. LUNGS: Symmetric air entry. S1-S2 regular rate. ABDOMEN: Soft, not distended or tender. No ascites. No bladder distention. EXTREMITIES: No joint inflammatory activity. He is able to move extremities on command. Plantar response are flexor. LABORATORY DATA: His white cell count is 16,000 now it is 12.4, hemoglobin 16.8, platelets 178 with 80% neutrophils. Sodium 136, creatinine 0.69. Liver profile normal. Albumin 3.0. CSF with 316 WBCs with 37% neutrophils, 29% lymphocytes. Glucose was 28, total protein 136. Syphilis was nonreactive. Cryptococcus antigen in the CSF was negative. IMAGING STUDIES: Included an echocardiogram with EF 50%, and technically difficult study. ASSESSMENT: 1. Abdominal aortic aneurysm, being observed. 2. History of coronary artery disease. 3. Change in mental status associated with headaches. 4. Abnormal cerebrospinal fluid evaluation with increased WBCs with predominance of lymphocytes, but hypoglycorrhachia. DISCUSSION: The clinical picture is not what one sees typically with acute bacterial meningitis. In acute bacterial meningitis typically patients present with acute progression of mental status changes, usually over the course of 24 hours and marked elevation of WBC usually above 1000 with a predominance of mature neutrophils. In this case, however, the patient had received antimicrobials many days before the spinal tap was carried out, so it is conceivable that we might have seen a partial response to treatment with decrease in the percentage of neutrophils, but still persistence of decrease in the glucose in the CSF. It is likely that he would have negative CSF cultures. The other possibility would be a parameningeal infection associated with otitis media for example. He does have evidence of mastoiditis on CT and I believe we need to complete the workup with an MRI of his head to evaluate for a parameningeal suppurative area. Other possibilities would be atypical pathogens, but that would be less likely viral encephalitis typically is not associated with decrease in glucose, but we will submit herpes simplex PCR for completeness sake. We will have to continue treating him empirically for possible meningitis since the CSF was gathered few days after the initiation of antimicrobial therapy. Job ID: [id number]
[2018-09-26] MEDS: Ampicillin 2 GM in Sodium Chloride 0.9% 100 ML IVPB SCH ×6 (02:30→21:21)
[2018-09-26] MEDS: cefTRIAXone\\ROCEPHIN 2 GM in Sodium Chloride 0.9% 100 ML IVPB SCH ×2 (04:49→16:25)
[2018-09-26] MEDS: Mometasone/Formoterol 120 PUFF INHALER INH SCH ×2 (07:33→18:32)
[2018-09-26 07:49] LABS: #Eosinphils 0.2 thou/uL (0.0-0.7); #Lymphocytes 0.7 thou/uL (1.20-3.40); #Monocytes 0.8 thou/uL (0.11-0.59); #Neutrophils 9.2 thou/uL (1.40-6.50); %Basophils 0.1 % (0.0-1.0); %Monocytes 7.6 % (0.0-10.0); %Neutrophils 84.3 % (42.0-75.0); Hemoglobin 15.8 g/dL (14.0-18.0); Mean Corpuscular HGB CONC 32.2 g/dL (32.0-36.0); Mean Corpuscular Hemoglobin 29.5 pg (27.0-31.0); Mean Corpuscular Volume 91.5 fL (78.0-98.0); Platelet Count 183 thou/uL (130-400); RBC Distribution Width 12.8 % (11.5-14.5); Red Blood Cell (RBC) Count 5.37 mill/uL (4.70-6.10); White Blood Cell (WBC) Count 10.9 thou/uL (4.8-10.8)
[2018-09-26 07:56] LABS: Anion Gap 15 mmol/L (10-20); BUN (Urea Nitrogen) 11 mg/dL (8.4-25.7); Calc. Creatinine Clearance 127 mL/min (70-130); Calcium 8.3 mg/dL (7.8-10.44); Carbon Dioxide 24 mmol/L (23-31); Chloride 103 mmol/L (98-107); Estimated GFR-MDRD Greater than 90; Glucose 84 mg/dL (83-110); Potassium 3.6 mmol/L (3.5-5.1); Sodium 138 mmol/L (136-145)
[2018-09-26] MEDS: Vancomycin HCl 1.5 GM in Sodium Chloride 0.9% 250 ML 300 ML IVPB SCH ×2 (08:14→17:35)
[2018-09-26] MEDS: Allopurinol 300 MG TAB PO SCH (08:15)
[2018-09-26] MEDS: Famotidine 20 MG TAB PO SCH ×2 (08:15→21:21)
[2018-09-26] MEDS: Metoprolol Tartrate 25 MG TAB PO SCH ×2 (08:15→21:21)
[2018-09-26] MEDS: Aspirin 81 mg Enteric Coated Tablet PO SCH (08:15)
[2018-09-26] MEDS: Enoxaparin Sodium 40 MG/0.4 ML SYRINGE SC SCH (08:16)
[2018-09-26] MEDS: Polyethylene Glycol 3350 17 GM Packet PO SCH ×2 (08:16→21:21)
[2018-09-26] MEDS: Ubidecarenone 50 MG CAP PO SCH (08:16)
[2018-09-26] MEDS ORDERED: Furosemide 40 MG/4 ML VIAL SLOW IVP SCH (09:00)
--- NOTE | 2018-09-26 09:08 | PDOC.PN ---
- Subjective Encounter Start Date: 10/01/18 Encounter Start Time: 08:20 Subjective: No complaint, No neck pain.. - Objective Resuscitation Status - Order Detail: 09/18/18 13:05 Resuscitation Status Routine Resuscitation Status: DNAR: NO Resuscitation Discussed with: d/w patient and at bedside Vital Signs & Weight: Vital Signs (12 hours) Temp Pulse Resp BP Pulse Ox 09/26/18 07:33 65 20 92 L 09/26/18 07:16 92 L 09/26/18 07:12 65 20 92 L 09/26/18 06:57 98.1 F 63 17 164/76 H 91 L 09/25/18 23:45 70 16 91 L Weight Weight 243 lb 3.2 oz I&O: 09/25/18 09/26/18 09/27/18 06:59 06:59 06:59 Intake Total 360 900 Output Total 750 5100 Balance -390 -4200 Result Diagrams: 09/26/18 06:43 09/26/18 06:43 Phys Exam - Physical Examination Constitutional: NAD Neck: no JVD Respiratory: clear to auscultation bilateral Cardiovascular: RRR Gastrointestinal: soft Musculoskeletal: no edema Neurological: moves all 4 limbs Psychiatric: normal affect Dx/Plan (1) Acute encephalopathy Code(s): G93.40 - ENCEPHALOPATHY, UNSPECIFIED Status: Acute Comment: resolved.. (2) Hypokalemia Code(s): E87.6 - HYPOKALEMIA Status: Acute Comment: resolved.. (3) Meningitis Code(s): G03.9 - MENINGITIS, UNSPECIFIED Status: Acute Plan: Presumed... f/u with ID. (4) PNA (pneumonia) Code(s): J18.9 - PNEUMONIA, UNSPECIFIED ORGANISM Status: Acute Qualifiers: Pneumonia type: due to unspecified organism Plan: Continue antibiotics.. (5) AAA (abdominal aortic aneurysm) Code(s): I71.4 - ABDOMINAL AORTIC ANEURYSM, WITHOUT RUPTURE Status: Chronic Qualifiers: Presence of rupture: without rupture Qualified Code(s): I71.4 - Abdominal aortic aneurysm, without rupture Comment: Being observed.. (6) Afib Code(s): I48.91 - UNSPECIFIED ATRIAL FIBRILLATION Status: Chronic Qualifiers: Atrial fibrillation type: paroxysmal Qualified Code(s): I48.0 - Paroxysmal atrial fibrillation Comment: in sinus - Plan -: Continue antibiotics. -: f/u with ID and pulmonary. -: f/u brain MRI. * .
[2018-09-26] MEDS: Acetaminophen 325 MG TAB PO PRN (10:26)
--- NOTE | 2018-09-26 10:51 | MRI ---
MRI OF THE BRAIN PERFORMED WITH AND WITHOUT CONTRAST ENHANCEMENT: Date: 09/26/18 HISTORY: Abnormal CSF. Altered mental status, delirium. FINDINGS: The ventricular and cisternal system shows fairly age-appropriate change. No signs of hemorrhage or m ass effect. On the diffusion-weighted sequence, there are no signs that would suggest an acute infarc t. I do not appreciate any abnormal enhancement. The meninges do not appear to abnormally enhance. Pi tuitary is normal in size. Mucosal change in both mastoid air cells. The visualized sinuses appear clear. IMPRESSION: No acute intracranial abnormalities. POS: [facility]
--- NOTE | 2018-09-26 13:23 | PRG ---
DATE OF SERVICE: 09/26/2018 SERVICE: Pulmonary Medicine. INTERVAL HISTORY: The patient continues to make significant improvements clinically. His mentation is much improved. He sitting in a bedside chair. He has fed himself breakfast today. He is actually much more conversive. He is not having any significant shortness of breath. PHYSICAL EXAMINATION: VITAL SIGNS: Afebrile, pulse 65, pressure 164/76, respirations 20, saturation 92% on room air. GENERAL: The patient is awake and alert, in no apparent distress. LUNGS: Decent air entry. There is minimal dependent crackles present. No rhonchi or wheezing appreciated. HEART: Normal rate, regular. ABDOMEN: Soft, nontender, and nondistended. Bowel sounds positive. MUSCULOSKELETAL: No cyanosis or clubbing. There is no pitting in the bilateral lower extremities. NEUROLOGIC: Grossly nonfocal. LABORATORY DATA: WBC 10.9 and downtrending, hemoglobin stable at 15.8, platelets 186,000. Basic metabolic profile is completely unremarkable. Potassium 3.6 and stable. INSURANCE VERIFICATION SPECIALIST studies are currently pending. HSV 1 and 2 PCR were unremarkable in the CSF. IMAGING: MRI of the brain demonstrates no acute intracranial abnormality. The meninges specifically did not appreciably appear in hands. ASSESSMENT: 1. Delirium. 2. Community-acquired pneumonia. 3. Acute hypoxic respiratory failure. 4. Lumbar puncture with inflammatory fluid. DISCUSSION AND PLAN: His mentation continues to improve. As such, antibiotics and supportive measures will be continued. Potassium will be replaced once again. I will give him a laboratory holiday in the morning. Pulmonary/Critical Care will continue to follow along. Job ID: [id number]
[2018-09-26] MEDS: Rosuvastatin 10 MG TAB PO SCH (21:21)
[2018-09-27] MEDS: Ampicillin 2 GM in Sodium Chloride 0.9% 100 ML IVPB SCH ×6 (02:59→21:08)
[2018-09-27] MEDS: cefTRIAXone\\ROCEPHIN 2 GM in Sodium Chloride 0.9% 100 ML IVPB SCH ×2 (04:00→17:15)
[2018-09-27] MEDS: Vancomycin HCl 1.5 GM in Sodium Chloride 0.9% 250 ML 300 ML IVPB SCH ×2 (05:54→18:24)
[2018-09-27] MEDS: Mometasone/Formoterol 120 PUFF INHALER INH SCH ×2 (06:39→19:08)
[2018-09-27] MEDS: Metoprolol Tartrate 25 MG TAB PO SCH ×2 (07:55→20:42)
[2018-09-27] MEDS: Enoxaparin Sodium 40 MG/0.4 ML SYRINGE SC SCH (07:55)
[2018-09-27] MEDS: Polyethylene Glycol 3350 17 GM Packet PO SCH ×2 (07:55→20:42)
[2018-09-27] MEDS: Aspirin 81 mg Enteric Coated Tablet PO SCH (07:56)
[2018-09-27] MEDS: Allopurinol 300 MG TAB PO SCH (07:56)
[2018-09-27] MEDS: Famotidine 20 MG TAB PO SCH ×2 (07:56→20:42)
--- NOTE | 2018-09-27 08:41 | PRG ---
DATE OF SERVICE: 09/27/2018 SUBJECTIVE: Mr. Segura is doing better. He is awake, alert, seems to be much more conversant than he was last week. OBJECTIVE: VITAL SIGNS: On exam, his temperature is 97.6, pulse 81, respirations 18, O2 saturation 97%, and blood pressure 159/80. HEENT: Unremarkable. NECK: Without adenopathy, JVD, or bruits. LUNGS: Clear anteriorly. CARDIAC: S1 and S2, regular. ABDOMEN: Soft. EXTREMITIES: No edema. ASSESSMENT: 1. Pneumonia. 2. Altered mental status, which is improved. 3. Delirium, improved. PLAN: 1. Discontinue [place]. 2. I think he could probably switch over to oral antibiotics if okay with all. 3. He is to the point where he can be transferred to rehab. Job ID: [id number]
[2018-09-27] MEDS: Ubidecarenone 50 MG CAP PO SCH (09:24)
--- NOTE | 2018-09-27 10:33 | PDOC.PN ---
- Subjective Encounter Start Date: 09/27/18 Encounter Start Time: 12:10 Subjective: Patient with less back pain. No fever. Confusion cleared. No complaints -: this morning. A little hard of hearing. - Objective Resuscitation Status - Order Detail: 09/18/18 13:05 Resuscitation Status Routine Resuscitation Status: DNAR: NO Resuscitation Discussed with: d/w patient and at bedside MAR Reviewed: Yes Vital Signs & Weight: Vital Signs (12 hours) Temp Pulse Resp BP Pulse Ox 09/27/18 06:55 97.6 F 61 18 159/80 H 97 09/27/18 06:38 65 20 90 L 09/27/18 00:12 74 16 92 L Weight Weight 243 lb 3.2 oz I&O: 09/26/18 09/27/18 09/28/18 06:59 06:59 06:59 Intake Total 900 1610 Output Total 5100 3800 Balance -4200 -2190 Result Diagrams: 09/26/18 06:43 09/26/18 06:43 Phys Exam - Physical Examination Constitutional: NAD HEENT: moist MMs Respiratory: no wheezing, no rales, no rhonchi Cardiovascular: RRR Gastrointestinal: soft, positive bowel sounds obese Neurological: non-focal, moves all 4 limbs Psychiatric: normal affect Dx/Plan (1) PNA (pneumonia) Code(s): J18.9 - PNEUMONIA, UNSPECIFIED ORGANISM Status: Acute Qualifiers: Pneumonia type: due to unspecified organism Comment: pulmonology following (2) Meningitis Code(s): G03.9 - MENINGITIS, UNSPECIFIED Status: Suspected Comment: Possibly partially treated bacterial meningitis, Dr. Loera following, he recommends another 10 days of IV Amp, Rocephin, and Vanc for a total of 14 days of antibiotics. Last day of antibiotics will be 10/07/2018. (3) Acute encephalopathy Code(s): G93.40 - ENCEPHALOPATHY, UNSPECIFIED Status: Resolved Comment: resolved.. (4) Hypokalemia Code(s): E87.6 - HYPOKALEMIA Status: Resolved Comment: resolved.. (5) AAA (abdominal aortic aneurysm) Code(s): I71.4 - ABDOMINAL AORTIC ANEURYSM, WITHOUT RUPTURE Status: Chronic Qualifiers: Presence of rupture: without rupture Qualified Code(s): I71.4 - Abdominal aortic aneurysm, without rupture Comment: Being observed.. (6) Afib Code(s): I48.91 - UNSPECIFIED ATRIAL FIBRILLATION Status: Chronic Qualifiers: Atrial fibrillation type: paroxysmal Qualified Code(s): I48.0 - Paroxysmal atrial fibrillation Comment: in sinus (7) CAD (coronary artery disease) Code(s): I25.10 - ATHSCL HEART DISEASE OF [place] CORONARY ARTERY W/O ANG PCTRS Status: Chronic Qualifiers: Coronary Disease-Associated Artery/Lesion type: bypass graft [place] vs. transplanted heart: [place] heart Associated angina: without angina Qualified Code(s): I25.810 - Atherosclerosis of coronary artery bypass graft(s) without angina pectoris (8) COPD (chronic obstructive pulmonary disease) Status: Chronic Qualifiers: COPD type: chronic bronchitis (9) HTN (hypertension) Code(s): I10 - ESSENTIAL (PRIMARY) HYPERTENSION Status: Chronic Qualifiers: Hypertension type: essential hypertension Qualified Code(s): I10 - Essential (primary) hypertension - Plan cont current plan of care, continue antibiotics, PT/OT ready to go to rehab once arranged. Can finish out abx there. * . - Discharge Day Encounter end time: 12:20
[2018-09-27 13:14] LABS: West Nile Virus IgG Ab - CSF Negative (Negative); West Nile Virus IgM Ab - CSF Negative (Negative)
--- NOTE | 2018-09-27 17:15 | PRG ---
DATE OF SERVICE: 09/27/2018 SUBJECTIVE: Mr. Segura is awake. He denies any headaches right now. He is better oriented. No respiratory symptoms. No abdominal pain. OBJECTIVE: VITAL SIGNS: Show normal temperature, T-max 99.2, BP 150/80, pulse 61, respirations 18, O2 saturation 97%. SKIN: Not particularly remarkable. HEENT: Ocular movements conjugate. Pupils are reactive. LUNGS: Symmetric air entry. HEART: S1 and S2. Regular rate. ABDOMEN: Soft, not distended. LABORATORY DATA: White cell count is down to 10.9, hemoglobin is 15.8, platelets are 183, 84% neutrophils. Creatinine 0.71, sodium 138. CSF West Nile antibodies negative. VDRL negative. Herpes simplex DNA PCR, and cryptococcus antigen negative. Cultures negative as expected. Head MRI without any evidence of parameningeal inflammatory process. ASSESSMENT AND DISCUSSION: Abdominal aortic aneurysm with coronary artery disease and recent change in mental status associated with headaches, abnormal CSF evaluation after a few days of antimicrobial initiation. In view of the MRI, the most likely scenario will be partially treated meningitis. Continue another 10 days of therapy and then discontinue antimicrobials. No evidence of a parameningeal suppurative focus. Job ID: [id number]
[2018-09-27] MEDS: Rosuvastatin 10 MG TAB PO SCH (20:42)
[2018-09-28] MEDS: Temazepam 15 MG CAP PO PRN ×2 (00:48→20:34)
[2018-09-28] MEDS: Ampicillin 2 GM in Sodium Chloride 0.9% 100 ML IVPB SCH ×6 (02:38→20:35)
[2018-09-28] MEDS: cefTRIAXone\\ROCEPHIN 2 GM in Sodium Chloride 0.9% 100 ML IVPB SCH ×2 (04:01→18:30)
[2018-09-28] MEDS: Mometasone/Formoterol 120 PUFF INHALER INH SCH ×2 (05:59→18:30)
[2018-09-28 06:20] LABS: Vancomycin, Trough 14.2 ug/mL
[2018-09-28] MEDS: Vancomycin HCl 1.5 GM in Sodium Chloride 0.9% 250 ML 300 ML IVPB SCH ×2 (06:39→18:59)
[2018-09-28] MEDS: Famotidine 20 MG TAB PO SCH ×2 (09:21→20:34)
[2018-09-28] MEDS: Aspirin 81 mg Enteric Coated Tablet PO SCH (09:21)
[2018-09-28] MEDS: Enoxaparin Sodium 40 MG/0.4 ML SYRINGE SC SCH (09:21)
[2018-09-28] MEDS: Lisinopril 20 MG TAB PO SCH (09:21)
[2018-09-28] MEDS: Allopurinol 300 MG TAB PO SCH (09:21)
[2018-09-28] MEDS: Metoprolol Tartrate 25 MG TAB PO SCH ×2 (09:21→20:34)
[2018-09-28] MEDS: Polyethylene Glycol 3350 17 GM Packet PO SCH ×2 (09:22→20:35)
--- NOTE | 2018-09-28 09:25 | PDOC.PN ---
- Subjective Encounter Start Date: 09/28/18 Encounter Start Time: 10:20 Subjective: Patient more confused today. Didn't sleep well last night per . No -: fever. Urinary frequency since suarez out. No complaints this morning. - Objective Resuscitation Status - Order Detail: 09/18/18 13:05 Resuscitation Status Routine Resuscitation Status: DNAR: NO Resuscitation Discussed with: d/w patient and at bedside MAR Reviewed: Yes Vital Signs & Weight: Vital Signs (12 hours) Temp Pulse Resp BP Pulse Ox 09/28/18 07:31 98.0 F 63 18 157/76 H 91 L 09/28/18 05:59 66 18 93 L 09/28/18 05:56 66 18 93 L 09/28/18 00:29 62 22 H 92 L Weight Weight 243 lb 3.2 oz I&O: 09/27/18 09/28/18 09/29/18 06:59 06:59 06:59 Intake Total 1610 1720 Output Total 3800 1140 Balance -2190 580 Result Diagrams: 09/26/18 06:43 09/26/18 06:43 Phys Exam - Physical Examination Constitutional: NAD HEENT: moist MMs Respiratory: no wheezing, no rales, no rhonchi, clear to auscultation bilateral Cardiovascular: RRR Gastrointestinal: soft, non-tender, positive bowel sounds Neurological: non-focal, moves all 4 limbs Psychiatric: normal affect Deviation from normal: alert, oriented to person, place, doesn't quite remember why here or date Dx/Plan (1) PNA (pneumonia) Code(s): J18.9 - PNEUMONIA, UNSPECIFIED ORGANISM Status: Acute Qualifiers: Pneumonia type: due to unspecified organism Comment: pulmonology following (2) Meningitis Code(s): G03.9 - MENINGITIS, UNSPECIFIED Status: Suspected Comment: Possibly partially treated bacterial meningitis, Dr. Loera following, he recommends another 10 days of IV Amp, Rocephin, and Vanc for a total of 14 days of antibiotics. Last day of antibiotics will be 10/07/2018. Will go ahead and get the MRI T and L spine done today to make sure no discitis or need for more prolonged antibiotics. (3) Acute encephalopathy Code(s): G93.40 - ENCEPHALOPATHY, UNSPECIFIED Status: Resolved Comment: resolved.. (4) Hypokalemia Code(s): E87.6 - HYPOKALEMIA Status: Resolved Comment: resolved.. (5) AAA (abdominal aortic aneurysm) Code(s): I71.4 - ABDOMINAL AORTIC ANEURYSM, WITHOUT RUPTURE Status: Chronic Qualifiers: Presence of rupture: without rupture Qualified Code(s): I71.4 - Abdominal aortic aneurysm, without rupture Comment: Being observed.. (6) Afib Code(s): I48.91 - UNSPECIFIED ATRIAL FIBRILLATION Status: Chronic Qualifiers: Atrial fibrillation type: paroxysmal Qualified Code(s): I48.0 - Paroxysmal atrial fibrillation Comment: in sinus (7) CAD (coronary artery disease) Code(s): I25.10 - ATHSCL HEART DISEASE OF [place] CORONARY ARTERY W/O ANG PCTRS Status: Chronic Qualifiers: Coronary Disease-Associated Artery/Lesion type: bypass graft [place] vs. transplanted heart: [place] heart Associated angina: without angina Qualified Code(s): I25.810 - Atherosclerosis of coronary artery bypass graft(s) without angina pectoris (8) COPD (chronic obstructive pulmonary disease) Status: Chronic Qualifiers: COPD type: chronic bronchitis (9) HTN (hypertension) Code(s): I10 - ESSENTIAL (PRIMARY) HYPERTENSION Status: Chronic Qualifiers: Hypertension type: essential hypertension Qualified Code(s): I10 - Essential (primary) hypertension - Plan cont current plan of care, continue antibiotics, PT/OT to rehab after MRI * . - Discharge Day Encounter end time: 10:30
--- NOTE | 2018-09-28 09:33 | PRG ---
DATE OF SERVICE: 09/28/2018 SUBJECTIVE: Mr. Segura is more confused today than he was yesterday. His is concerned because he has not been sleeping at night. OBJECTIVE: VITAL SIGNS: Temperature 98.0, pulse 62, respirations 18, O2 saturations 91%, blood pressure 157/76. HEENT: Unremarkable. NECK: No JVD. CHEST: Fairly clear anteriorly. CARDIAC: S1, S2. Regular. ABDOMEN: Soft. EXTREMITIES: No edema. LABORATORY DATA: Not done today. ASSESSMENT: 1. Persistent delirium. 2. Pneumonia. 3. Question of some type of meningitis at the time of admission, although, not clear on MRI that he truly had meningitis. RECOMMENDATIONS: 1. Try to re-establish sleep-wake cycle as much as possible. 2. Withhold any mind-altering medication. 3. Continue antibiotics. 4. Nothing further to add at this time. Job ID: [id number]
[2018-09-28] MEDS: Ubidecarenone 50 MG CAP PO SCH (10:39)
--- NOTE | 2018-09-28 15:28 | MRI ---
MRI OF THE THORACIC SPINE WITH AND WITHOUT CONTRAST: INDICATION: Rule out diskitis with a history of back pain. TECHNIQUE: Multiplanar, multisequence MR images were obtained of the thoracic spine with and without Iv contrast . No comparisons are available. CONTRAST: The patient received 20 cc of MultiHance for the exam. FINDINGS: No abnormal marrow signal abnormality is noted to suggest the presence of osteomyelitis or diskitis. There are benign-appearing suspected hemangiomas within T8, T10, and T11. The spinal cord demonstra kasey normal signal intensity and contour. There is mild multilevel spondylosis. No appreciable centr al canal or neural foraminal narrowing. No definite area of abnormal enhancement is noted. There ar e small bilateral pleural effusions. IMPRESSION: 1. No overt evidence of diskitis/osteomyelitis. 2. Benign-appearing hemangiomas within T8, T10, and T11. POS: [facility]
--- NOTE | 2018-09-28 15:37 | MRI ---
MRI LUMBAR SPINE WITH AND WITHOUT GADOLINIUM CONTRAST: HISTORY: Low back pain. Evaluate for diskitis. FINDINGS: Images, including the retroperitoneum, show prominent bilobed, fusiform dilatation of the lower abdom inal aorta, measuring up to 6.8 cm in AP diameter on the sagittal images. The conus medullaris has a normal appearance. T12-L1/L1-L2: Degenerative changes of the facets. Central canal and neural foramina are patent. L2-L3: Mild disk bulge with posterior annular fissure. Thecal sac is patent. Degenerative changes of the facets. Mild stenosis of each neural foramen. L3-L4: Disk space narrowing. Minimal degenerative retrolisthesis. Posterior disk bulge and circumf erential degenerative changes. Severe stenosis of the central canal. Moderate stenosis of each neur al foramen. L4-L5: Chronic endplate compressions on each side of the disk space, similar in appearance to the pr ior MRI exam. No residual edematous signal within the bone marrow. Mild retropulsion of the L4 infe rior endplate. Disk bulge and circumferential degenerative changes with moderate stenosis of the yemi tral canal and severe stenosis of each neural foramen. L5-S1: Mild disk bulge. Circumferential degenerative changes. Moderate stenosis of the central can al. Moderate right and severe left foraminal stenosis. IMPRESSION: 1. Prominent multilevel degenerative changes throughout the lumbar spine, with central canal and for aminal stenosis, most severe at the L4-L5 level. 2. Chronic mild endplate compression around the L4-L5 disk space. No evidence of diskitis or osteom yelitis. 3. Bilobed lower abdominal aortic aneurysm, as detailed on prior CT examinations. POS: [facility]
[2018-09-28 17:42] LABS: Bilirubin Negative (Negative); Blood, Urine Negative (Negative); Clarity CLEAR (Clear); Glucose, Urine (Dipstick) Negative (Negative); Leukocyte Negative (Negative); Nitrite Negative (Negative); Protein, Urine (Dipstick) Negative (Neg-Trace); Specific Gravity, Urine 1.015 (1.002-1.036); Urobilinogen 0.2 mg/dL (0.2-1.0)
[2018-09-28 20:08] LABS: HSV 2 - DNA Negative (Negative)
[2018-09-28] MEDS: Rosuvastatin 10 MG TAB PO SCH (20:34)
[2018-09-29] MEDS: Ampicillin 2 GM in Sodium Chloride 0.9% 100 ML IVPB SCH ×4 (01:19→14:38)
[2018-09-29] MEDS: cefTRIAXone\\ROCEPHIN 2 GM in Sodium Chloride 0.9% 100 ML IVPB SCH ×2 (03:55→16:15)
[2018-09-29] MEDS: Vancomycin HCl 1.5 GM in Sodium Chloride 0.9% 250 ML 300 ML IVPB SCH (05:11)
[2018-09-29] MEDS: Mometasone/Formoterol 120 PUFF INHALER INH SCH (05:45)
--- NOTE | 2018-09-29 07:45 | PDOC.PN ---
- Subjective Encounter Start Date: 09/29/18 Encounter Start Time: 09:30 Subjective: Patient didn't sleep well again last night, but better this morning. -: Ate breakfast well. Still a little confused. No pain complaints. - Objective Resuscitation Status - Order Detail: 09/18/18 13:05 Resuscitation Status Routine Resuscitation Status: DNAR: NO Resuscitation Discussed with: d/w patient and at bedside MAR Reviewed: Yes Vital Signs & Weight: Vital Signs (12 hours) Pulse Resp Pulse Ox 09/29/18 05:45 72 16 93 L 09/29/18 05:41 72 16 93 L 09/28/18 23:50 60 18 91 L 09/28/18 20:00 92 L Weight Weight 243 lb 3.2 oz I&O: 09/28/18 09/29/18 09/30/18 06:59 06:59 06:59 Intake Total 1720 2360 Output Total 1140 1050 Balance 580 1310 Result Diagrams: 09/26/18 06:43 09/26/18 06:43 Phys Exam - Physical Examination Constitutional: NAD HEENT: moist MMs Respiratory: no wheezing, no rales, no rhonchi Cardiovascular: RRR Gastrointestinal: soft, non-tender, positive bowel sounds Neurological: non-focal, moves all 4 limbs Psychiatric: normal affect Deviation from normal: Alert, oriented to person, knows in hospital, uncertain situation Dx/Plan (1) PNA (pneumonia) Code(s): J18.9 - PNEUMONIA, UNSPECIFIED ORGANISM Status: Acute Qualifiers: Pneumonia type: due to unspecified organism Comment: pulmonology following (2) Meningitis Code(s): G03.9 - MENINGITIS, UNSPECIFIED Status: Suspected Comment: Possibly partially treated bacterial meningitis, Dr. Loera following, he recommends another 10 days of IV Amp, Rocephin, and Vanc for a total of 14 days of antibiotics. Last day of antibiotics will be 10/07/2018. MRI T and L spine without evidence of discitis/osteo and pain back to baseline. (3) Acute encephalopathy Code(s): G93.40 - ENCEPHALOPATHY, UNSPECIFIED Status: Acute Comment: Still waxing and waning some depending on if he sleeps well or not, need to reestablish good sleep/wake cycle (4) Hypokalemia Code(s): E87.6 - HYPOKALEMIA Status: Resolved Comment: resolved.. (5) AAA (abdominal aortic aneurysm) Code(s): I71.4 - ABDOMINAL AORTIC ANEURYSM, WITHOUT RUPTURE Status: Chronic Qualifiers: Presence of rupture: without rupture Qualified Code(s): I71.4 - Abdominal aortic aneurysm, without rupture Comment: Being observed.. (6) Afib Code(s): I48.91 - UNSPECIFIED ATRIAL FIBRILLATION Status: Chronic Qualifiers: Atrial fibrillation type: paroxysmal Qualified Code(s): I48.0 - Paroxysmal atrial fibrillation Comment: in sinus (7) CAD (coronary artery disease) Code(s): I25.10 - ATHSCL HEART DISEASE OF [place] CORONARY ARTERY W/O ANG PCTRS Status: Chronic Qualifiers: Coronary Disease-Associated Artery/Lesion type: bypass graft [place] vs. transplanted heart: redding heart Associated angina: without angina Qualified Code(s): I25.810 - Atherosclerosis of coronary artery bypass graft(s) without angina pectoris (8) COPD (chronic obstructive pulmonary disease) Status: Chronic Qualifiers: COPD type: chronic bronchitis (9) HTN (hypertension) Code(s): I10 - ESSENTIAL (PRIMARY) HYPERTENSION Status: Chronic Qualifiers: Hypertension type: essential hypertension Qualified Code(s): I10 - Essential (primary) hypertension - Plan cont current plan of care, PT/OT to rehab once approved * . - Discharge Day Encounter end time: 09:40
[2018-09-29] MEDS: Ubidecarenone 50 MG CAP PO SCH (08:46)
[2018-09-29] MEDS: Aspirin 81 mg Enteric Coated Tablet PO SCH (08:49)
[2018-09-29] MEDS: Lisinopril 20 MG TAB PO SCH (08:49)
[2018-09-29] MEDS: Polyethylene Glycol 3350 17 GM Packet PO SCH (08:49)
[2018-09-29] MEDS: Famotidine 20 MG TAB PO SCH (08:49)
[2018-09-29] MEDS: Metoprolol Tartrate 25 MG TAB PO SCH (08:49)
[2018-09-29] MEDS: Allopurinol 300 MG TAB PO SCH (08:49)
[2018-09-29] MEDS: Enoxaparin Sodium 40 MG/0.4 ML SYRINGE SC SCH (08:50)
--- NOTE | 2018-09-29 11:04 | PRG ---
DATE OF SERVICE: 09/29/2018 SUBJECTIVE: He is less confused today. He is up in a chair. OBJECTIVE: VITAL SIGNS: Temperature 98.3, pulse 62, blood pressure 158/75, and O2 saturation 92%. HEENT: Unremarkable. NECK: No JVD. LUNGS: Inspiratory crackles at both bases. CARDIAC: S1, S2. Regular. ABDOMEN: Soft. EXTREMITIES: No edema. LABORATORY DATA: No labs were done today. ASSESSMENT: 1. Pneumonia. 2. Question of partially-treated meningitis. PLAN: Continue antibiotics for 7 more days. There are no further Pulmonary recommendations. We will sign off the case. Please recall if further assistance is needed. Job ID: [id number]
[2018-09-29 16:08] VITALS: BP 120/81; TEMP 97.6
--- NOTE | 2018-09-29 22:54 | DIS ---
DATE OF ADMISSION: 09/18/2018 DATE OF DISCHARGE: 09/29/2018 PRIMARY CARE PHYSICIAN: Jakob Vasquez MD REASON FOR ADMISSION: Pneumonia and back pain. DIAGNOSES AT DISCHARGE: 1. Community-acquired pneumonia. 2. Possible bacterial meningitis. 3. Chronic obstructive pulmonary disease exacerbation. 4. Acute metabolic encephalopathy, improving. 5. Abdominal aortic aneurysm without active rupture. 6. Paroxysmal atrial fibrillation, currently in sinus rhythm. 7. Coronary artery disease. 8. Hypertension. PROCEDURES: 1. CT dissection protocol showing bilobed infrarenal abdominal aortic aneurysm measuring 5.7 cm in its greatest diameter without any evidence of rupture. 2. CT of the brain showing no acute intracranial abnormalities. 3. Echocardiogram showing left ventricular ejection fraction of 50% to 55%. 4. MRI of the brain showing no acute intracranial abnormalities. No evidence of infection or stroke. 5. MRI of the thoracic spine with and without contrast showing no evidence of diskitis or osteomyelitis, some benign-appearing hemangiomas within T8, T10 and T11. 6. Lumbar spine MRI showing no evidence of diskitis or osteomyelitis with chronic mild endplate compression fracture around L4-L5 disc space and some significant multilevel degenerative changes. CONSULTATIONS: 1. Pulmonology, Dr. Sanchez. 2. Cardiovascular Surgery, Dr. Lewis. 3. Infectious Disease, Dr. Loera. SUMMARY OF HOSPITAL COURSE: This is an 83-year-old white male. He had gone for cardiac rehab the day before admission, felt weak afterwards and started having a frontal headache and shaking all over. He has some chronic low back pain from compression fracture, but he got severe lower back pain and moved up into his mid back area, so he called EMS. He also has had chronic cough with sputum for 2 to 3 days for which he came in, was on Medrol Dosepak. The patient was seen in the emergency room as he has a history of abdominal aortic aneurysm. He had a CT scan done to rule out any sort of rupture. Dr. Lewis was consulted and determined that this was not an active problem in this patient. Dr. Sanchez was consulted as well. The patient was determined to have likely pneumonia and put on appropriate antibiotics. However, he got severely confused during his hospitalization and was not able to sleep, became disoriented and started complaining about worsening pain in his head and in his mid to low back. Eventually, the patient had an MRI ordered but was unable to lay still for. He had lumbar puncture done which showed 316 white blood cells with 37% neutrophils and only 6 RBCs. He also was noted to have low protein at 28 and high total protein of 136. West Nile and VDRL were nonreactive. HIV was also negative. Syphilis was nonreactive in the serum as well. Dr. Loera was consulted for Infectious Disease. MRI of the brain was done that showed no acute processes and nothing was determined. The patient had a possibility of having had partially treated bacterial pneumonia since he had been on antibiotics for 3 or 4 days already before the lumbar puncture, though pneumonia remains the most likely source of his infection. As a result, he recommended triple antibiotic therapy with Rocephin, vancomycin, and ampicillin for a full 14-day course. We were eventually also able to get the thoracic and lumbar MRI of the spine to rule out any sort of osteomyelitis or diskitis causing his back pain. The patient improved during hospitalization. He continued to have some hospital acquired delirium and specifically had trouble sleeping at night but he did much better during the day, was eating well, starting to ambulate with physical therapy. He was being discharged to inpatient rehab. DISCHARGE MANAGEMENT: Discharged to inpatient rehab at [facility]. ACTIVITY: As tolerated. DIET: Healthy heart low-sodium diet. THERAPY: Occupational and physical therapy. He will need to keep a peripheral IV to finish off his antibiotic course. He need to be on 9 days of antibiotics IV, which he can finish during his rehabilitation stay. FOLLOWUP: He is to follow up with his primary care doctor after he gets out of rehab. MEDICATIONS: 1. Allopurinol 300 mg each morning. 2. Aspirin 81 mg daily. 3. Symbicort 2 puffs twice a day. 4. Famotidine 20 mg twice a day. 5. Ipratropium neb every 6 hours as needed. 6. Metoprolol tartrate 25 mg twice a day. 7. MiraLAX 17 g twice a day. 8. Rosuvastatin 10 mg at night. 9. Senokot-S 2 tabs twice a day as needed. 10. CoQ10 of 400 mg daily. 11. Ampicillin 2 g IV q.4 hours for another 9 days. Last day of antibiotics will be October 07, 2018. 12. Rocephin 2 g IV piggyback twice a day, last day October 07, 2018. 13. Vancomycin 1.5 g IV piggyback twice a day until October 07, 2018, as well. TIME SPENT: Arranging the details of this discharge took 35 minutes. Job ID: [id number]
== END 2018-09-29 17:27 | DRG 193 ==
LOC: ERS 00:36 → 2SW 05:55 → OBSVTOIN 13:13 → 2NO 22:25 → T4-A 09-23 12:45
PROVIDERS: ADMIT Internal Medicine; ATTEND Internal Medicine
PROC: 009U3ZX Drainage of Spinal Canal, Percutaneous Approach, Diagnostic (ICD-10-PCS; principal; 2018-09-22)
DX: J18.9 Pneumonia, unspecified organism (principal); J96.01 Acute respiratory failure with hypoxia; G00.9 Bacterial meningitis, unspecified; G93.41 Metabolic encephalopathy; J44.1 Chronic obstructive pulmonary disease with (acute) exacerbation; J44.0 Chronic obstructive pulmonary disease with (acute) lower respiratory infection; I48.0 Paroxysmal atrial fibrillation; I25.10 Atherosclerotic heart disease of native coronary artery without angina pectoris; I71.4 Abdominal aortic aneurysm, without rupture; Z66 Do not resuscitate; I10 Essential (primary) hypertension; M1A.9XX0 Chronic gout, unspecified, without tophus (tophi); E87.6 Hypokalemia; G89.29 Other chronic pain; M54.5 Low back pain; Z87.891 Personal history of nicotine dependence; Z79.82 Long term (current) use of aspirin; Z79.899 Other long term (current) drug therapy; Z95.1 Presence of aortocoronary bypass graft
CPT/HCPCS: 36415; 36416; 62270; 70450; 70553; 71045; 71275; 72157; 72158; 80048; 80053; 80202; 81003; 82550; 82805; 82945; 84157; 84484; 85025; 85060; 86592; 86780; 86788; 86789; 87070; 87205; 87529; 87899; 89051; 93005; 93306; 94664; 96365; 96375; 96376; J0290; J0456; J0696; J1650; J1940; J1956; J2060; J2270; J2405; J2920; J3370; J7050; J7620; Q9966

== ENCOUNTER 2018-10-20 07:32 | Inpatient (IN) | payer MEDICARE, BC ==
[2018-10-20] MEDS ORDERED: Protamine Sulfate 50 MG/5 ML VIAL ONE ×2 (07:33→11:58)
[2018-10-20] MEDS ORDERED: Bupivacaine/Epinephrine 0.25% 30 ML VIAL ONE (07:33)
[2018-10-20] MEDS ORDERED: Vancomycin HCl 1.5 GM in Sodium Chloride 0.9% 250 ML 300 ML IVPB SCH (08:15)
[2018-10-20] MEDS ORDERED: Clindamycin/D5W 900 MG in Premix Bag 1 BAG IVPB SCH (08:15)
[2018-10-20 08:44] LABS: #Basophils 0.1 thou/uL (0.0-0.2); #Eosinphils 0.4 thou/uL (0.0-0.7); #Monocytes 1.1 thou/uL (0.11-0.59); #Neutrophils 7.7 thou/uL (1.40-6.50); %Basophils 0.5 % (0.0-1.0); %Lymphocytes 9.9 % (21.0-51.0); %Monocytes 10.9 % (0.0-10.0); %Neutrophils 74.6 % (42.0-75.0); Hemoglobin 17.2 g/dL (14.0-18.0); Mean Corpuscular HGB CONC 32.6 g/dL (32.0-36.0); Mean Corpuscular Volume 88.8 fL (78.0-98.0); Platelet Count 233 thou/uL (130-400); RBC Distribution Width 12.7 % (11.5-14.5); Red Blood Cell (RBC) Count 5.95 mill/uL (4.70-6.10); White Blood Cell (WBC) Count 10.3 thou/uL (4.8-10.8)
[2018-10-20 08:52] LABS: PTT 26.3 SEC (22.9-36.1); Prothrombin Time 13.2 SEC (12.0-14.7)
[2018-10-20 09:02] LABS: Anion Gap 12 mmol/L (10-20); BUN (Urea Nitrogen) 18 mg/dL (8.4-25.7); Calc. Creatinine Clearance 86 mL/min (70-130); Calcium 9.8 mg/dL (7.8-10.44); Carbon Dioxide 30 mmol/L (23-31); Chloride 99 mmol/L (98-107); Estimated GFR-MDRD 75; Glucose 111 mg/dL (83-110); Potassium 3.5 mmol/L (3.5-5.1); Sodium 137 mmol/L (136-145)
[2018-10-20] MEDS ORDERED: Bupivacaine HCl 0.5%/Epinephrine 1:200,000/PF 30 ml Vial ONE (09:48)
[2018-10-20] MEDS ORDERED: Clindamycin/D5W 900 mg/50 ml Premix Bag ONE (09:51)
[2018-10-20] MEDS ORDERED: Fentanyl 100 MCG/2 ML VIAL ONE (09:52)
[2018-10-20] MEDS ORDERED: Midazolam HCl 2 mg/2 ml Vial ONE (09:52)
[2018-10-20] MEDS ORDERED: Dexmedetomidine 200 MCG/2 ML VIAL ONE (10:20)
[2018-10-20] MEDS ORDERED: Heparin 10,000 UNITS/1 ML VIAL ONE ×2 (10:33→11:32)
[2018-10-20] MEDS ORDERED: Ondansetron HCl/PF 4 MG/2 ML Vial IVP PRN (12:14)
[2018-10-20] MEDS ORDERED: ePHEDrine 50 MG/ML VIAL ONE (13:30)
[2018-10-20] MEDS ORDERED: PROPOFOL 200 MG/20 ML VIAL ONE (13:30)
[2018-10-20] MEDS ORDERED: PHENYLEPHRINE-NS 100 MCG/ML 10 ML SYRINGE ONE (13:30)
[2018-10-20] MEDS ORDERED: hydrALAZINE 20 MG/ML VIAL SLOW IVP PRN (13:43)
[2018-10-20] MEDS ORDERED: Phenylephrine 10 MG/NS 250 ML 250 ML IVPB PRN (13:43)
[2018-10-20] MEDS ORDERED: Fentanyl 100 MCG/2 ML VIAL SLOW IVP PRN ×2 (13:43)
[2018-10-20] MEDS ORDERED: Ondansetron PF 4 MG/2 ML Vial IVP PRN (13:43)
[2018-10-20] MEDS ORDERED: Acetaminophen 325 MG TAB PO PRN ×2 (13:43→22:58)
[2018-10-20] MEDS ORDERED: HYDROcodone/Acetaminophen 5/325 mg Tablet PO PRN (13:43)
[2018-10-20] MEDS ORDERED: Promethazine HCl 25 MG/ML VIAL IM PRN (13:43)
--- NOTE | 2018-10-20 14:21 | OP ---
DATE OF PROCEDURE: 10/20/2018 PREOPERATIVE DIAGNOSIS: Abdominal aortic aneurysm. POSTOPERATIVE DIAGNOSIS: Abdominal aortic aneurysm. PROCEDURES PERFORMED: 1. Bilateral percutaneous access and percutaneous closure of large arterial sheath. 2. Abdominal aortogram with bilateral pelvic runoff. 3. Endovascular aneurysm repair utilizing a 36 x 20 x 166 main body right Medtronic Endurant II stent graft system. 4. 16 x 20 x 156 left iliac extension with crossed limbs. 5. Ultrasound-guided percutaneous access. CO-SURGEON: Bay Lewis MD. ANESTHESIA: Local utilizing 0.5% Marcaine with epinephrine and IV sedation provided by Dr. Za Sue. CONTRAST: 90ml FLOURO Time: 11:55 ESTIMATED BLOOD LOSS: Less than 100. DESCRIPTION OF PROCEDURE: After consent was obtained, the patient was brought to the operating room and placed in supine position on the operating room table. Appropriate lines and standard monitors were placed, and IV sedation was done. The ultrasound was used to interrogate his femoral arteries, and femoral arteries were marked for percutaneous access. Abdomen and groins were prepped and draped in usual sterile fashion. Using ultrasound guidance, percutaneous access to the common femoral artery was obtained, and a 5-Khmer sheath was placed bilaterally. Crossed ProGlide closure devices were placed for later closure and tagged. The patient was given a total of 11K units of heparin IV. The Contra catheter was positioned above the renal arteries, and an abdominal aortogram was performed with power injector. The renal arteries were localized and marked. A 36 x 20 x 166 stent graft system was selected. Bentson wires were exchanged for Lunderquist wires bilaterally. A long 12-Khmer sheath was placed via the left groin into the aneurysm sac. Over the right Lunderquist wire, the main body graft was positioned just below the renal arteries. The graft was deployed with crossed limbs. Once the gate opened, the Contra catheter was withdrawn back into the sheath over a Lunderquist wire. The Lunderquist wire was used to cannulate the gate and pass the Contra catheter into the main body of the aneurysm graft. The Contra catheter was pulled easily. The hand-injected arteriogram was performed through the sheath measuring the left iliac extension as a 16 x 20 x 156. This was positioned at the gate bifurcation and deployed with the tip ending above the iliac bifurcation. Reliant balloons were then used to angioplasty the complete length of the graft including both iliac extensions. Followup angiogram showed good proximal and distal seals. The right external iliac artery had some tortuosity to it, which was probably caused by wire bias. The reliant balloon was used to angioplasty this area and then easily inflate it without any resistance. Followup angiogram showed better flow and better-looking iliac system at that time. The sheaths were then removed over Bentson wires, and the ProGlides were tightened. There was good hemostasis. ProGlides were cut. Dermabond was applied to stick sites. 100 mg of protamine was given. The patient was transferred to the recovery room in stable condition. He had palpable pulses in both dorsalis pedis arteries. Job ID: [id number] [facility]
[2018-10-20] MEDS: Sodium Chloride 0.9% 1,000 ML IV SCH (14:50)
[2018-10-20 15:14] VITALS: BMI 31.5
[2018-10-20] MEDS: Clindamycin/D5W 900 MG in Premix Bag 1 BAG IVPB SCH ×2 (16:20→22:46)
[2018-10-20] MEDS: Mometasone/Formoterol 120 PUFF INHALER INH SCH (18:55)
[2018-10-20] MEDS ORDERED: Vancomycin HCl 1.5 GM in Sodium Chloride 0.9% 500 ML IVPB SCH (21:00)
[2018-10-20] MEDS ORDERED: Non-Formulary Item 1 EACH (Budesonide-Formoterol [Symbicort 160-4.5] 2 PUFF) INH SCH (21:00)
[2018-10-20] MEDS: Vancomycin HCl 1.5 GM in Sodium Chloride 0.9% 250 ML 300 ML IVPB SCH (21:58)
[2018-10-20] MEDS: Calcium Carbonate + Vit D 1 TAB PO SCH (22:45)
[2018-10-20] MEDS: Metoprolol Tartrate 25 MG TAB PO SCH (22:46)
[2018-10-20] MEDS: Magnesium Oxide 250 MG TAB PO SCH (22:46)
[2018-10-20] MEDS: Rosuvastatin 10 MG TAB PO SCH (22:46)
--- NOTE | 2018-10-21 00:56 | CON ---
DATE OF CONSULTATION: 10/20/2018 HISTORY OF PRESENT ILLNESS: Mr. Segura is a very pleasant 83-year-old male. He is admitted for percutaneous closure of a large arterial sheath and abdominal aortogram with bilateral pelvic runoff and endovascular aneurysm repair by Dr. Segura. He was evaluated in the ICU because of admission to the critical care unit. He was in no distress at the time of my evaluation, had no complaints. He was recently admitted on September 18 and sent home on September 29 with a community-acquired pneumonia. It was felt that he might have coexisting bacterial meningitis and COPD exacerbation. He is encephalopathic and this improved by the time of discharge. He is noted to be in atrial fibrillation. He was discharged to recover and then come back for his aneurysm from what I can tell. PAST MEDICAL HISTORY: 1. Remarkable for coronary artery disease, COPD, prostatectomy, and abdominal aortic aneurysm that has been followed as an outpatient by Dr. Segura. 2. History of atrial fibrillation. SOCIAL HISTORY: Nonsmoker, nondrinker with no drug allergies. FAMILY HISTORY: Positive for coronary artery disease. REVIEW OF SYSTEMS: Ten points review of systems completed, negative. He denies abdominal pain or leg pain. PHYSICAL EXAMINATION: GENERAL: Mr. Segura is a very pleasant 83-year-old male. VITAL SIGNS: He is afebrile. Heart rate is 68, respiratory rate is 22, oximetry is 100% on 1.5 L. HEAD: Unremarkable. NECK: Unremarkable. LUNGS: Clear. HEART: Regular rhythm. S1 and S2 are normal. ABDOMEN: Soft and nontender. EXTREMITIES: Warm. He has pulses in his feet. LABORATORY DATA: White count 10.3, hemoglobin 17.2, and platelets 233,000. Hemoglobin 16 days ago was 14.9. Sodium 137, potassium 3.5, chloride 99, bicarb 30, BUN 18, creatinine 0.96. IMPRESSION: 1. Status post abdominal aortic aneurysm repair, percutaneously. 2. Intravascular volume depletion reflected by an elevated BUN and elevated hemoglobin. We will be happy to follow the other physicians caring for him. He appears to be clinically stable at this time . This is a 50 minute consult, with greater than 50% of time spent on unit coordinating care. Job ID: [id number] MTDD
[2018-10-21 02:46] LABS: #Eosinphils 0.2 thou/uL (0.0-0.7); #Lymphocytes 0.7 thou/uL (1.20-3.40); #Neutrophils 13.9 thou/uL (1.40-6.50); %Basophils 0.2 % (0.0-1.0); %Eosinophils 0.9 % (0.0-10.0); %Lymphocytes 4.3 % (21.0-51.0); %Monocytes 12.1 % (0.0-10.0); %Neutrophils 82.6 % (42.0-75.0); Hemoglobin 14.9 g/dL (14.0-18.0); Mean Corpuscular Hemoglobin 30.2 pg (27.0-31.0); Mean Corpuscular Volume 91.7 fL (78.0-98.0); Mean Platelet Volume 6.9 fL (7.4-10.4); Platelet Count 137 thou/uL (130-400); RBC Distribution Width 12.8 % (11.5-14.5); Red Blood Cell (RBC) Count 4.94 mill/uL (4.70-6.10); White Blood Cell (WBC) Count 16.8 thou/uL (4.8-10.8)
[2018-10-21 03:08] LABS: Anion Gap 9 mmol/L (10-20); BUN (Urea Nitrogen) 20 mg/dL (8.4-25.7); Calc. Creatinine Clearance 98 mL/min (70-130); Calcium 8.9 mg/dL (7.8-10.44); Carbon Dioxide 30 mmol/L (23-31); Chloride 102 mmol/L (98-107); Estimated GFR-MDRD 83; Glucose 126 mg/dL (83-110); Potassium 3.3 mmol/L (3.5-5.1); Sodium 138 mmol/L (136-145)
[2018-10-21] MEDS: Sodium Chloride 0.9% 1,000 ML IV SCH (03:31)
[2018-10-21] MEDS: Clindamycin/D5W 900 MG in Premix Bag 1 BAG IVPB SCH ×2 (04:24→12:01)
[2018-10-21] MEDS: HYDROcodone/Acetaminophen 5/325 mg Tablet PO PRN ×3 (05:12→15:28)
[2018-10-21] MEDS: Mometasone/Formoterol 120 PUFF INHALER INH SCH ×2 (07:23→18:22)
[2018-10-21] MEDS: Loratadine 10 MG TAB PO SCH (09:11)
[2018-10-21] MEDS: Magnesium Oxide 250 MG TAB PO SCH ×2 (09:11→21:20)
[2018-10-21] MEDS: Calcium Carbonate + Vit D 1 TAB PO SCH ×2 (09:11→21:17)
[2018-10-21] MEDS: Hydrochlorothiazide 25 MG TAB PO SCH (09:11)
[2018-10-21] MEDS: Metamucil PACK PO SCH ×2 (09:12→21:18)
[2018-10-21] MEDS: Metoprolol Tartrate 25 MG TAB PO SCH ×4 (09:12→21:20)
[2018-10-21] MEDS: Aspirin 81 mg Enteric Coated Tablet PO SCH (09:12)
[2018-10-21] MEDS: Famotidine 20 MG TAB PO SCH (09:12)
[2018-10-21] MEDS: Vancomycin HCl 1.5 GM in Sodium Chloride 0.9% 250 ML 300 ML IVPB SCH (09:13)
[2018-10-21] MEDS: Allopurinol 300 MG TAB PO SCH (10:52)
[2018-10-21] MEDS: Ubidecarenone 50 MG CAP PO SCH (10:52)
[2018-10-21 11:10] VITALS: BP 106/52
--- NOTE | 2018-10-21 17:28 | PRG ---
DATE OF SERVICE: 10/21/2018 SUBJECTIVE: Ruy Segura has no complaints. He states he felt a little congested in his chest earlier, but that improved as he awakened, sat up more. OBJECTIVE: VITAL SIGNS: His heart rate in the 60s, blood pressure 125/58, respiratory rate 16, oximetries in the high 80s to low 90s. LUNGS: Remarkable for mild rhonchi. HEART: Regular rhythm, S1 and S2 normal. ABDOMEN: Soft and nontender. EXTREMITIES: Feet are warm. LABORATORY DATA: White count 16.8, hemoglobin 14.9, platelets 137. Sodium 138, potassium 3.3, chloride 102, bicarb 30, BUN 20, creatinine 0.88. IMPRESSION AND PLAN: 1. Status post endovascular aortic aneurysm repair. 2. History of being told he has had chronic obstructive pulmonary disease in the past. He revealed this to me today, but not when we were talking yesterday. I have recommended that he receive a nebulized treatment 2 to 3 times a day. 3. History of atrial fibrillation. Overall, he appears to be stable. Job ID: [id number]
[2018-10-21] MEDS ORDERED: Lisinopril 20 MG TAB PO SCH (21:00)
[2018-10-21] MEDS: Rosuvastatin 10 MG TAB PO SCH (21:17)
[2018-10-22 00:24] VITALS: TEMP 98.6
[2018-10-22] MEDS: Mometasone/Formoterol 120 PUFF INHALER INH SCH (07:22)
[2018-10-22] MEDS: Famotidine 20 MG TAB PO SCH (08:03)
[2018-10-22] MEDS: Ubidecarenone 50 MG CAP PO SCH (08:03)
[2018-10-22] MEDS: Allopurinol 300 MG TAB PO SCH (08:03)
[2018-10-22] MEDS: Metoprolol Tartrate 25 MG TAB PO SCH (08:03)
[2018-10-22] MEDS: Loratadine 10 MG TAB PO SCH (08:03)
[2018-10-22] MEDS: Aspirin 81 mg Enteric Coated Tablet PO SCH (08:04)
[2018-10-22] MEDS: Magnesium Oxide 250 MG TAB PO SCH (08:04)
[2018-10-22] MEDS: Hydrochlorothiazide 25 MG TAB PO SCH (08:04)
[2018-10-22] MEDS: Calcium Carbonate + Vit D 1 TAB PO SCH (08:04)
--- NOTE | 2018-10-22 09:14 | DIS ---
DATE OF ADMISSION: 10/20/2018 DATE OF DISCHARGE: 10/22/2018 DIAGNOSIS: Abdominal aortic aneurysm. PROCEDURE: Endovascular repair of abdominal aortic aneurysm. DISCHARGE MEDICATIONS: Unchanged from his home regimen. DESCRIPTION OF HOSPITAL STAY: Mr. Segura came to the hospital for endovascular repair of his abdominal aortic aneurysm. This was performed under local with sedation. He has done well and being discharged to home to follow up with me in 2 weeks. Job ID: [id number]
--- NOTE | 2018-10-22 09:40 | PRG ---
DATE OF SERVICE: 10/22/2018 SUBJECTIVE: Ruy Segura has no complaints. He is being weaned off oxygen this morning. He is tentatively scheduled to go home. OBJECTIVE: VITAL SIGNS: Heart rate 72, respiratory rate is 21, and oximetry is 94% on 2L, and blood pressure actually was elevated earlier this morning. LUNGS: Completely clear. HEART: Regular rhythm. ABDOMEN: Soft. IMPRESSION: 1. Status post endovascular aneurysm repair, clinically stable. 2. History of chronic obstructive pulmonary disease. He will go back on his Symbicort. 3. Probable sleep apnea. I will be happy to see him in the office in 3 to 4 weeks and set him up for sleep study. I have given my phone number to his and she will set up the appointment. Job ID: [id number]
== END 2018-10-22 08:36 | disposition home or self-care (01) | DRG 269 ==
LOC: SURG A 07:32 → CCU 14:09
PROVIDERS: ADMIT Thoracic Surgery (Cardiothoracic Vascular Surgery); ATTEND Thoracic Surgery (Cardiothoracic Vascular Surgery)
PROC: 04V03DZ Restriction of Abdominal Aorta with Intraluminal Device, Percutaneous Approach (ICD-10-PCS; principal; 2018-10-20)
DX: I71.4 Abdominal aortic aneurysm, without rupture (principal); I48.91 Unspecified atrial fibrillation; J43.9 Emphysema, unspecified; I25.10 Atherosclerotic heart disease of native coronary artery without angina pectoris; E78.2 Mixed hyperlipidemia; I10 Essential (primary) hypertension; G47.30 Sleep apnea, unspecified; M10.9 Gout, unspecified; E66.3 Overweight; Z68.31 Body mass index [BMI] 31.0-31.9, adult; Z87.891 Personal history of nicotine dependence; Z79.82 Long term (current) use of aspirin; Z79.899 Other long term (current) drug therapy
CPT/HCPCS: 36415; 76000; 80048; 85025; 85610; 85730; 86850; 86900; 86901; 94640; C1726; C1760; C1762; C1769; C1894; J0670; J1642; J1644; J2250; J2405; J2704; J2720; J3010; J3370; J3490; J7050; J7620

== ENCOUNTER 2018-10-29 09:58 | Emergency (ER) | payer MEDICARE, BC ==
[2018-10-29 10:48] LABS: #Eosinphils 0.3 thou/uL (0.0-0.7); #Lymphocytes 0.8 thou/uL (1.20-3.40); #Monocytes 1.1 thou/uL (0.11-0.59); #Neutrophils 10.5 thou/uL (1.40-6.50); %Basophils 0.3 % (0.0-1.0); %Eosinophils 2.2 % (0.0-10.0); %Lymphocytes 6.4 % (21.0-51.0); %Monocytes 8.5 % (0.0-10.0); %Neutrophils 82.6 % (42.0-75.0); Hemoglobin 15.7 g/dL (14.0-18.0); Mean Corpuscular HGB CONC 32.1 g/dL (32.0-36.0); Mean Corpuscular Hemoglobin 28.4 pg (27.0-31.0); Mean Corpuscular Volume 88.6 fL (78.0-98.0); Mean Platelet Volume 6.7 fL (7.4-10.4); Platelet Count 337 thou/uL (130-400); RBC Distribution Width 12.7 % (11.5-14.5); Red Blood Cell (RBC) Count 5.53 mill/uL (4.70-6.10); White Blood Cell (WBC) Count 12.8 thou/uL (4.8-10.8)
[2018-10-29 11:01] LABS: ALT (SGPT) 17 U/L (8-55); AST (SGOT) 13 U/L (5-34); Albumin 3.5 g/dL (3.4-4.8); Alkaline Phosphatase 91 U/L (40-150); Anion Gap 16 mmol/L (10-20); BUN (Urea Nitrogen) 20 mg/dL (8.4-25.7); Bilirubin, Total 1.2 mg/dL (0.2-1.2); Calc. Creatinine Clearance 0 mL/min (70-130); Calcium 9.7 mg/dL (7.8-10.44); Carbon Dioxide 29 mmol/L (23-31); Chloride 93 mmol/L (98-107); Estimated GFR-MDRD 38; Globulin 2.8 g/dL (2.4-3.5); Glucose 119 mg/dL (83-110); Protein, Total 6.3 g/dL (5.8-8.1); Sodium 135 mmol/L (136-145)
[2018-10-29 11:18] LABS: Potassium 2.8 mmol/L (3.5-5.1)
[2018-10-29] MEDS ORDERED: ISOVUE-370 76%-LOCM 1 ML ONE (12:44)
[2018-10-29] MEDS ORDERED: Iopamidol 370 76% 50 ML VIAL FS ONE (12:44)
--- NOTE | 2018-10-29 13:19 | CT ---
CT ABDOMEN AND PELVIS WITH CONTRAST: Date: 10/30/18 HISTORY: Hypotension. Weakness. COMPARISON: CTA aortic dissection protocol dated 09/18/18. FINDINGS: There is scarring and bronchiectasis left lung base. No pericardial effusion. There is a new aortobiiliac graft excluding the aortic aneurysm. The aneurysm on the prior examinatio n previously measured up to 5.8 cm in AP dimension at a similar level and has not grown. There is micheal e foci of gas along the margins of the graft, although this could be postsurgical in nature depending on the length of time between the surgery and today. There is a circumferential narrowing of the cecum with marked submucosal edema. This appears new from the 09/18/18 examination and therefore would be more concerning for an acute colitis picture rather than a mass. There is moderate diverticular disease of the sigmoid colon without active current infla mmation. Prior prostatectomy and pelvic side wall lymph node dissection. There appear to be left L3 hemilaminectomy changes. IMPRESSION: 1. New aortobiiliac graft with some gas, small volume, along the anterior medial margin of the graft . Recommend correlation for timing of procedure. Given the lack perianeurysmal edema, infection is fe lt less likely. 2. New extensive submucosal edema and some mild peripheral stranding around the cecum, concerning fo r a colitis, and as this is new from the 09/18/18 examination, then malignancy is felt less likely. T here is also a focal area of annular narrowing at the hepatic flexure, coronal image 38. At a minimum , follow-up colonoscopy after treatment is recommended. No bowel obstruction. 3. No interval size increase of the aortic aneurysm. Evaluation for endoleak cannot be performed due to the phase of contrast as this is a normal abdomen examination and not a CT angiogram. POS: CET
[2018-10-29] MEDS ORDERED: Potassium Chloride 20 MEQ/100 ML PREMIX BAG ONE (13:39)
[2018-10-29] MEDS ORDERED: Potassium Chloride 20 MEQ TAB ONE (13:43)
[2018-10-29] MEDS ORDERED: Potassium Chloride 20 MEQ in Premix Bag 1 BAG IVPB SCH (14:00)
[2018-10-29] MEDS ORDERED: Ondansetron PF 4 MG/2 ML Vial ONE (14:22)
--- NOTE | 2018-11-05 12:38 | EKG ---
Test Reason : Blood Pressure : / mmHG Vent. Rate : 076 BPM Atrial Rate : 140 BPM P-R Int : 000 ms QRS Dur : 102 ms QT Int : 420 ms P-R-T Axes : 000 015 045 degrees QTc Int : 472 ms Accelerated Junctional rhythm with occasional Premature ventricular complexes Inferior infarct , age undetermined Abnormal ECG Confirmed by ANGIE ASHFORD D.O. ([id number]), sound editor VERONICA RHODES ([id number]) on 11/05/2018 12:38:20 PM Referred By: Confirmed By:ANGIE ASHFORD D.O.
== END 2018-10-29 15:40 | disposition home or self-care (01) ==
LOC: ERS 09:58
DX: K59.00 Constipation, unspecified (principal); I25.10 Atherosclerotic heart disease of native coronary artery without angina pectoris; I10 Essential (primary) hypertension; J44.9 Chronic obstructive pulmonary disease, unspecified; M10.9 Gout, unspecified; Z79.899 Other long term (current) drug therapy; Z79.82 Long term (current) use of aspirin
CPT/HCPCS: 74177; 80053; 83605; 84484; 85025; 93005; 96361; 96365; J2405; J3480; Q9966; Q9967

== ENCOUNTER 2019-02-14 08:57 | Outpatient (CLI) | payer MEDICARE, BC ==
[2019-02-14] MEDS ORDERED: ISOVUE-370 76%-LOCM 1 ML ONE (10:58)
--- NOTE | 2019-02-14 12:01 | CT ---
CT ANGIO OF ABDOMEN AND PELVIS PERFORMED WITH INTRAVENOUS CONTRAST ENHANCEMENT WITH 3D RECONSTRUCTION S: HISTORY: The patient had an aortoiliac stent placement. Evaluation for endoleak, followup of aneurysm size. History of prostate cancer. COMPARISON: A 10/29/2018 study. FINDINGS: The lung bases show some chronic-appearing change. The liver shows small hypodensities within the left lobe, stable, most likely cysts. The spleen, newell creas, and gallbladder regions all appear unremarkable. The nodularity to the right adrenal gland is stable. A very subtle hyperdense lesion involving the u pper pole of the left kidney measuring 8-9 mm in size. It is difficult to appreciate on either the or even a 09/18/2018 study, although I think it is probably subtly present, probably just a sm all hyperdense cyst. There is no significant periaortic or mesenteric adenopathy. An aortoiliac tim nt is present. The gas density seen on the prior examination is no longer present. The aneurysm karli sures 5.5 cm in AP dimension, which is a slight interval decrease. It measured 5.8 cm on the prior e xam. There are no signs of endoleak. The appendix is normal. Postoperative changes in the prostate region are seen. Some colonic diverti culosis is noted. IMPRESSION: 1. Stable to slightly decreased size to the aortic aneurysm. No evidence for endoleak. 2. Tiny hyperdense cyst upper pole left kidney. 3. Colonic diverticulosis. POS: TPC
== END 2019-02-14 08:58 | disposition home or self-care (01) ==
LOC: CT 08:57
PROVIDERS: ATTEND Thoracic Surgery (Cardiothoracic Vascular Surgery)
DX: I71.4 Abdominal aortic aneurysm, without rupture (principal); N28.1 Cyst of kidney, acquired
CPT/HCPCS: 74174; 82565; Q9966

== ENCOUNTER 2019-02-14 09:34 | Emergency (ER) | payer BC, MEDICARE, OTHER ==
[2019-02-14] MEDS ORDERED: Adacel (T-DAP) 0.5 ML SYRINGE ONE (11:03)
--- NOTE | 2019-02-14 11:06 | RAD ---
EXAM: Right Rib series with chest x-ray HISTORY: Fall with right chest/rib pain COMPARISON: None FINDINGS: Single view of the chest shows an enlarged cardiomediastinal silhouette. The patient is st atus post CABG. Atelectasis is seen in the left lung base. There is no evidence of consolidation, mass, or pleural effusion. Multiple views of the right ribs shows no evidence of displaced rib fracture. No underlying pleural t hickening or pneumothorax are seen. IMPRESSION: 1. No evidence of displaced rib fracture. 2. No evidence of acute cardiopulmonary disease. 3. Left basilar atelectasis
[2019-02-14] MEDS ORDERED: Bacitracin Zinc 1 Packet ONE (11:53)
== END 2019-02-14 12:25 | disposition home or self-care (01) ==
LOC: ERS 09:34
DX: S01.81XA Laceration without foreign body of other part of head, initial encounter (principal); S20.211A Contusion of right front wall of thorax, initial encounter; I25.10 Atherosclerotic heart disease of native coronary artery without angina pectoris; I10 Essential (primary) hypertension; M10.9 Gout, unspecified; J44.9 Chronic obstructive pulmonary disease, unspecified; W18.30XA Fall on same level, unspecified, initial encounter; Z79.82 Long term (current) use of aspirin; Z79.899 Other long term (current) drug therapy
CPT/HCPCS: 90471; 90715

== ENCOUNTER 2019-08-15 12:36 | Outpatient (CLI) | payer MEDICARE, BC ==
--- NOTE | 2019-08-15 15:51 | CT ---
CTA ABDOMEN AND PELVIS WITH AND WITHOUT CONTRAST: Axial tomograms were obtained through the abdomen and pelvis without IV enhancement. This was followe d by tomograms following aortogram protocol with multiplanar reconstruction and 3D post processing. Indications: Mild aortic aneurysm repair, October 2018. History of prostate cancer. FINDINGS: There is an aortic stent graft noted in place. Stent graft is patent. There is no evidence of endolea k. No significant space is seen at the origin of the superior mesenteric or celiac arteries. Both renal arteries appear patent without significant renal artery stenosis identified. The iliac limbs of the stent are patent. The visualized iliac and femoral arteries appear patent and symmetric. [place] aneurysm is seen in the low abdominal aorta measuring approximately 4.4 cm. Liver, spleen, and pancreas appear unremarkable. A small nodule involving the left adrenal gland which is indeterminate, measures approximately 1.2 cm . This is a stable finding. Kidneys are otherwise unremarkable. The visualized bowel loops are unrema rkable. IMPRESSION: Aortic stent graft is patent and there is no evidence of endoleak. POS: NETTIE
== END 2019-08-15 12:37 | disposition home or self-care (01) ==
LOC: BICCT 12:36
PROVIDERS: ATTEND Thoracic Surgery (Cardiothoracic Vascular Surgery)
DX: Z48.815 Encounter for surgical aftercare following surgery on the digestive system (principal); Z98.890 Other specified postprocedural states
CPT/HCPCS: 74174; 82565

== ENCOUNTER 2020-04-18 15:48 | Outpatient (CLI) | payer MEDICARE, BC, OTHER ==
[2020-04-19 13:24] LABS: SARS-CoV-2 MS2 Positive; SARS-CoV-2 N Gene Negative; SARS-CoV-2 S Gene Negative; SARS-CoV-2 by NAA Not Detected (NotDetected); SARS-CoV-2 orf1ab Negative
== END 2020-04-18 15:49 | disposition home or self-care (01) ==
LOC: LABBT 15:48
PROVIDERS: ATTEND Internal Medicine Critical Care Medicine
DX: Z20.828 Contact with and (suspected) exposure to other viral communicable diseases (principal)
CPT/HCPCS: 87635; U0003

== ENCOUNTER → 2020-04-20 | Day surgery (SDC) | payer MEDICARE, BC ==
[2020-04-20 11:11] LABS: RBC Count-Automated (BF) 205587 /cu.mm; WBC/Nucleated-Auto (BF) 1678 uL
[2020-04-20 11:30] LABS: Fluid, Triglycerides 31 mg/dL (Not Available); Pleural Fluid, Amylase Less than 30 U/L (Not Available); Pleural Fluid, Glucose 102 mg/dL; Pleural Fluid, LDH 502 U/L (Not Available); Pleural Fluid, Protein 3.5 g/dL
[2020-04-20 12:03] LABS: BF Color Red; Body Fluid Source Thoracentesis Fluid; Clarity Cloudy/Turbid (Clear); Tube # 3
[2020-04-20 12:09] LABS: BF Segmented Neutrophils 7 %; Cell Count Non Hematic 16 %; Eosinophils 56 %; Lymphocytes 20 %
--- NOTE | 2020-04-20 12:23 | RAD ---
FRONTAL RADIOGRAPH CHEST: Date: 04/20/2020 COMPARISON: 04/02/2020. HISTORY: Evaluate chest following right-sided thoracentesis. FINDINGS: No discrete pneumothorax is seen on either side. Midline sternotomy wires and mediastinal clips are p resent. There is nonspecific left basilar pleural and parenchymal opacity partially obscuring the left hemidi aphragm. There is hazy increased density in the lateral upper aspect of the right hemithorax. There i s also dense opacity in the right base consistent with a combination of right pleural and parenchymal opacity. Findings on recent chest CT performed 04/17/2020 raise concern for pleural malignancy, which cannot b e optimally assessed on this exam. Please refer to CT examination for further assessment. IMPRESSION: Pleural and parenchymal opacity bilaterally, right greater than left. No discrete pneumothorax noted. POS: H
--- NOTE | 2020-04-20 15:23 | OP ---
DATE OF PROCEDURE: 04/20/2020 PROCEDURE PERFORMED: Right thoracentesis. PREOPERATIVE DIAGNOSIS: Right pleural effusion. POSTOPERATIVE DIAGNOSIS: Right pleural effusion. ANESTHESIA: 1% lidocaine without epinephrine. DESCRIPTION OF PROCEDURE: Informed consent was obtained prior to the procedure. The patient was placed in a sitting position. Ultrasound was used to identify the best entry site into the right hemothorax. The patient was prepped at approximately the 5th and 6th interspace at the right lateral scapular line. 1% lidocaine was placed at the insertion site. A small juan was made with a scalpel. A [id number] catheter was used into the pleural space. Approximately 1800 mL of bloody pleural fluid was removed and sent for appropriate studies. FINDINGS: Preliminary are very suspicious for malignancy. I will call the patient next week with results. Job ID: [id number]
== END ==
LOC: SDC 07:56
PROVIDERS: ATTEND Internal Medicine Critical Care Medicine
PROC: 0W993ZZ Drainage of Right Pleural Cavity, Percutaneous Approach (ICD-10-PCS; principal; 2020-04-20)
DX: J90 Pleural effusion, not elsewhere classified (principal)
CPT/HCPCS: 32554; 71045; 82150; 82945; 83615; 83986; 84157; 84478; 85060; 87070; 87116; 87205; 87206; 88112; 88305; 89051; J1642

== ENCOUNTER 2020-05-15 14:01 | Outpatient (CLI) | payer MEDICARE, BC ==
--- NOTE | 2020-05-15 15:42 | RAD ---
PA AND LATERAL VIEWS CHEST: Date: 05/15/2020 HISTORY: Pleural effusion. COMPARISON: 05/09/2020. FINDINGS: Changes of median sternotomy again seen. Heart size is enlarged but stable. Bilateral pleural effusio ns are again seen with adjacent atelectatic changes. Nodules/masses in the right upper lobe are again noted and appear stable. There are degenerative changes in the spine. IMPRESSION: Stable exam. POS: AH
== END 2020-05-15 14:02 | disposition home or self-care (01) ==
LOC: BICRAD 14:01
PROVIDERS: ATTEND Thoracic Surgery (Cardiothoracic Vascular Surgery)
DX: J90 Pleural effusion, not elsewhere classified (principal)
CPT/HCPCS: 71046

== ENCOUNTER 2020-05-30 12:11 | Outpatient (CLI) | payer MEDICARE, BC ==
--- NOTE | 2020-05-30 13:59 | RAD ---
2 VIEW CHEST: Date 05/30/2020 INDICATION: Dyspnea. COMPARISON: 05/15/2020. FINDINGS: Bilateral effusions. Bibasilar infiltrates and/or atelectasis, stable from prior exam. The mass densi ties in the right upper lung field are stable. No interval change from 05/15/2020. IMPRESSION: Stable chest findings. POS: AGW
== END 2020-05-30 12:12 | disposition home or self-care (01) ==
LOC: BICRAD 12:11
PROVIDERS: ATTEND Internal Medicine Critical Care Medicine
DX: R06.00 Dyspnea, unspecified (principal)
CPT/HCPCS: 71046

== ENCOUNTER 2020-07-16 13:02 | Outpatient (CLI) | payer MEDICARE, BC ==
--- NOTE | 2020-07-16 13:51 | RAD ---
PA AND LATERAL VIEWS CHEST: Date: 07/16/2020 HISTORY: Dyspnea. COMPARISON: 05/30/2020. FINDINGS: Changes of median sternotomy are again seen. The heart size is stable. Small bilateral pleural effusi ons, right larger than left, with adjacent atelectasis changes versus infiltrates. Mass-like densitie s in the right lung are again seen. There are degenerative changes in the spine. IMPRESSION: Stable exam. POS: NETTIE
== END 2020-07-16 13:03 | disposition home or self-care (01) ==
LOC: BICRAD 13:02
PROVIDERS: ATTEND Internal Medicine Critical Care Medicine
DX: R06.00 Dyspnea, unspecified (principal)
CPT/HCPCS: 71046

== ENCOUNTER 2020-08-28 22:41 | Inpatient (IN) | payer MEDICARE, BC ==
[2020-08-28] MEDS ORDERED: cefTRIAXone\\ROCEPHIN 2 GM VIAL ONE (23:13)
[2020-08-28] MEDS ORDERED: Albuterol 200 PUFF (6.7GM INHALER) ONE (23:15)
[2020-08-28] MEDS ORDERED: Azithromycin 500 MG VIAL ONE (23:36)
--- NOTE | 2020-08-29 00:40 | PDOC.HHP ---
Hospitalist HPI - History of Present Illness Shortness of breath History of Present Illness: This is an 85-year-old male patient for history of coronary artery disease, abdominal aortic aneurysm, hypertension, COPD who was transferred from [facility] on account of COPD exacerbation. Outside hospital he was given breathing treatments with albuterol prior to transfer. At presentation here his blood pressure was 151/66, pulse 93, temperature 98.4, respiratory rate 26 saturating 100% on 3 L oxygen. His labs showed hyponatremia of 128, AST 50, BNP 355. His troponin was 0.020. Chest x-ray showed congestive heart failure with possible superimposed aspiration or pneumonia. He was started on azithromycin and ceftriaxone breathing treatments. He also received 40 mg Lasix Hospitalist team consulted to admit. At the time of my evaluation patient was in obvious distress and could not talk much. He however had made significant improvement from when he was initially brought in, according to his nurse. Patient also noted cough and shortness of breath have improved since arrival. He had a lot of gurgly sounds in his throat that is limiting his overall communication. Hospitalist ROS - Review of Systems Constitutional: reports: weakness, malaise. denies: fever, chills, sweats Respiratory: reports: cough, dry. denies: shortness of breath, hemoptysis Cardiovascular: denies: chest pain, palpitations, orthopnea, paroxysmal noc. dyspnea Gastrointestinal: denies: nausea, vomiting, abdominal pain Genitourinary: denies: dysuria, frequency, incontinence All other systems reviewed; all pertinent +/- noted in HPI/Subj - Medication Medications: Medications: Currently refer to ambulatory order list. Allergies: No known drug allergies Hospitalist History - Past Medical History Other Medical History: coronary artery disease, abdominal aortic aneurysm, hypertension, COPD - Past Surgical History Other Surgical History: CABG, prostatectomy, cardiac ablation, - Family History Family History: reports: no pertinent history - Social History Living Situation: With Family - Exam General - other findings: Awake but very weak. Eye: PERRL, anicteric sclera ENT: normocephalic atraumatic, no oropharyngeal lesions Heart: RRR, no murmur, no gallops, no rubs Respiratory: tachypneic Respiratory - other findings: Coarse transmitted breath sounds globally Gastrointestinal: soft, non-tender, non-distended, normal bowel sounds Extremities: no cyanosis, no clubbing, 1+ LE edema Neurological: cranial nerve grossly intact Neurological - other findings: Spontaneously moves all limbs Psychiatric: flat affect Hospitalist H&P A/P - Plan Plan: This is an 85-year-old male patient history of coronary artery disease, heart failure, hypertension and COPD who presents as a transfer from [place] on account of acute hypoxic respiratory failure secondary to combination of heart failure exacerbation, pneumonia and possible COPD exacerbation. Acute hypoxic respiratory failure In the setting of heart failure, COPD and pneumonia. Continue oxygen therapy as needed Pulmonary consult if deteriorates. Heart failure exacerbation BNP elevated at 355 Start diuresis Monitor input output and daily weights. Echocardiogram in a.m. Consider cardiac consult Pneumonia Start azithromycin ceftriaxone Swallow evaluation and speech therapy consult to rule out aspiration Possible COPD constipation DuoNeb/steroids/antibiotics as above. Hyponatremia Mildsodium 128 We will monitor BMP VT prophylaxisLovenox CODE STATUSto be discussed
[2020-08-29] MEDS ORDERED: Furosemide 40 MG/4 ML VIAL ONE (00:43)
[2020-08-29] MEDS ORDERED: Electrolyte Replacement Protocol 1 EACH FS PRN (00:45)
[2020-08-29 04:49] VITALS: BMI 31.2
[2020-08-29] MEDS ORDERED: methylPREDNISolone Sod Succ 40 MG VIAL IVP SCH ×2 (05:00→14:00)
[2020-08-29 07:27] LABS: #Lymphocytes 0.8 thou/uL (1.20-3.40); #Monocytes 0.5 thou/uL (0.11-0.59); %Basophils 0.4 % (0.0-1.0); %Eosinophils 0.3 % (0.0-10.0); %Lymphocytes 7.4 % (21.0-51.0); %Monocytes 4.6 % (0.0-10.0); %Neutrophils 87.4 % (42.0-75.0); Hemoglobin 13.2 g/dL (14.0-18.0); Mean Corpuscular HGB CONC 31.5 g/dL (32.0-36.0); Mean Corpuscular Hemoglobin 27.7 pg (27.0-31.0); Mean Corpuscular Volume 87.9 fL (78.0-98.0); Mean Platelet Volume 7.2 fL (7.4-10.4); Platelet Count 180 thou/uL (130-400); RBC Distribution Width 13.6 % (11.5-14.5); Red Blood Cell (RBC) Count 4.76 mill/uL (4.70-6.10); White Blood Cell (WBC) Count 10.3 thou/uL (4.8-10.8)
[2020-08-29 07:45] LABS: Anion Gap 16 mmol/L (10-20); BUN (Urea Nitrogen) 22 mg/dL (8.4-25.7); Calc. Creatinine Clearance 117 mL/min (70-130); Calcium 8.4 mg/dL (7.8-10.44); Carbon Dioxide 29 mmol/L (23-31); Chloride 91 mmol/L (98-107); Glucose 125 mg/dL (83-110); Sodium 131 mmol/L (136-145)
[2020-08-29 08:34] LABS: Actual Bicarbonate (HCO3a) 29.4 mEq/L (22-28); Analyzer IN Cardio OR; Base Excess (BEa) 2.1 mEq/L (-2.0 to +3.0); CO2 Tension 57.9 mmHg (35.0-45.0); Calcium, Ionized (arterial) 1.18 mmol/L (1.12-1.30); Carboxyhemoglobin (COHb) 1.2 gm% (0.0-3.0); Hemoglobin (Hb) 13.5 g/dL (14.0-18.0); Potassium - ABG Lab 4.66 mmol/L (3.70-5.30); pH, Arterial 7.32 (7.35-7.45)
[2020-08-29 08:44] LABS: O2 Tension (PaO2), arterial 48.3 mmHg (> 60.0)
[2020-08-29 08:46] LABS: ALV-art Gradient 100.355 mmHg (0-20); Puncture Site RRA
[2020-08-29] MEDS: Enoxaparin Sodium 40 MG/0.4 ML SYRINGE SC SCH (09:49)
--- NOTE | 2020-08-29 13:49 | PDOC.HOSPP ---
- Subjective Encounter Date: 08/29/20 Encounter Time: 13:49 Subjective: F/u: shortness of breath The patient's states he got short of breath over the last two days. He was taking his inhalers and lasix at home. He has been hardly eating much the past few days. She brought her to the hospital because he was barely even able to talk. He was also wheezing excessively ABG this morning showed a PO2 of 40. Per nurse, the patient was on a non- rebreather this am but using a lot of accessory muscles. He was placed on BIPAP. Everytime they take the BIPAP off, the patient desaturates to 70%. THe patient has a history of COPD and uses 2L of oxygen at home. Dr. Sanchez is the patient's donation specialist and she states she called his office this am The patient denies excessive cough. He denies orthopnea and sleeps on one pillow. He denies chest pain, sore throat, fevers or chills Pleural mass - this was noted on last CT chest. states the patient saw Dr. Segura and there was not enough fluid for a chest tube. Thoracentesis in 03/2020 showed no cancer cells. They were told that the masses may just be old coagulated blood from a previous fall - Objective Vital Signs & Weight: Vital Signs (12 hours) Temp Pulse Resp BP BP Pulse Ox 08/29/20 13:45 97 30 H 93 L 08/29/20 11:30 98.5 F 96 30 H 112/57 L 96 08/29/20 11:11 100 08/29/20 08:46 96 08/29/20 08:06 92 30 H 86 L 08/29/20 07:37 98.0 F 104 H 20 147/70 H 90 L 08/29/20 03:35 99.2 F 91 24 H 131/60 90 L 08/29/20 02:58 92 L 08/29/20 02:45 89 28 H 91 L Weight Weight 230 lb 8 oz I&O: 08/28/20 08/29/20 08/30/20 06:59 06:59 06:59 Output Total 425 Balance -425 Result Diagrams: 08/29/20 07:11 08/29/20 07:11 Hospitalist ROS - Review of Systems Constitutional: denies: fever - Medication Medications: Active Medications Generic Name Dose Route Start Last Admin Trade Name Freq PRN Reason Stop Dose Admin Albuterol/Ipratropium 3 ml 08/29/20 02:30 08/29/20 13:45 Ipratropium/Albuterol Sulfate 3 Ml Neb NEB 3 ml [id number] SHARMIN Administration Enoxaparin Sodium 40 mg 08/29/20 09:00 08/29/20 09:49 Enoxaparin Sodium 40 Mg/0.4 Ml Syringe SC 40 mg 0900 SHARMIN Administration - Exam General Appearance: NAD, awake alert General - other findings: on BIPAP Eye: PERRL, anicteric sclera ENT: normocephalic atraumatic, no oropharyngeal lesions Neck: no JVD Heart: RRR, no murmur, no gallops, no rubs Respiratory - other findings: diminished breath sounds bilaterally Gastrointestinal: soft, non-tender, non-distended, normal bowel sounds Extremities: 2+ LE edema Skin: normal turgor, no lesions, no rashes Hosp A/P - Plan This is an 85 year old male with past medical history of COPD, hypertension, abdominal aortic aneurysm presenting with shortness of breath. #Acute hypoxic respiratory failure secondary to possible COPD exacerbation vs CHF #History of mitral valve prolapse #Tricuspid regurgitation ( moderate on last ECHO) - chest Xray shows worsening CHF. Will give one dose of lasix 40 mg IV x 1 - will order IV steroids - continue BIPAP. Will repeat ABG to evaluate for improvement. Pulmonary will be consulted per patient request - continue breathing treatments - will check three sets of troponins. Will repeat ECHO CAD s/p CABG - continue aspirin Abdominal aortic aneurysm s/p repair -stable, no symptoms Hypertension - hold medicine Gout - continue allopurinol
[2020-08-29] MEDS ORDERED: Furosemide 40 MG/4 ML VIAL SLOW IVP SCH (14:00)
[2020-08-29 14:24] LABS: Actual Bicarbonate (HCO3a) 29.6 mEq/L (22-28); Analyzer IN Cardio OR; Base Excess (BEa) 3.5 mEq/L (-2.0 to +3.0); CO2 Tension 51.1 mmHg (35.0-45.0); Calcium, Ionized (arterial) 1.19 mmol/L (1.12-1.30); Carboxyhemoglobin (COHb) 0.9 gm% (0.0-3.0); Hemoglobin (Hb) 13.3 g/dL (14.0-18.0); O2 Tension (PaO2), arterial 66.6 mmHg (> 60.0); Potassium - ABG Lab 4.52 mmol/L (3.70-5.30); pH, Arterial 7.38 (7.35-7.45)
[2020-08-29 14:25] LABS: ALV-art Gradient 154.725 mmHg (0-20); Puncture Site RRA
[2020-08-29 15:12] LABS: CKMB 3.8 ng/mL (0-6.6)
[2020-08-29] MEDS ORDERED: Magnesium Sulfate 3 GM in Sodium Chloride 0.9% 100 ML IVPB SCH (16:00)
[2020-08-29] MEDS ORDERED: Sodium Chloride 0.45% 1,000 ML IV SCH (16:00)
[2020-08-29] MEDS: methylPREDNISolone Sod Succ 40 MG VIAL IVP SCH ×2 (17:58→23:26)
[2020-08-29] MEDS: Mometasone 200 MCG/Formoterol 5 MCG 120 PUFF INHALER INH SCH (19:33)
[2020-08-29 20:38] LABS: CKMB 3.1 ng/mL (0-6.6)
[2020-08-29] MEDS ORDERED: Non-Formulary Item 1 EACH (Budesonide-Formoterol [Symbicort 160-4.5] 160 MG/4.5 MG Aer) INH SCH (21:00)
--- NOTE | 2020-08-29 21:15 | CON ---
DATE OF CONSULTATION: 08/29/2020 HISTORY OF PRESENT ILLNESS: Ruy Segura is an 85-year-old male. He was admitted to the hospital just after midnight after presenting to the emergency room yesterday short of breath. He has a history of chronic obstructive pulmonary disease. He was transferred here from [facility]. PAST MEDICAL HISTORY: 1. [facility]able for coronary disease. 2. History of coronary artery bypass grafting. 3. History of prostatectomy. 4. History of an ablation procedure in the past. 5. History of COPD. 6. History of hypertension. 7. History of an abdominal aortic aneurysm. 8. History of thoracentesis last fall for pleural effusion by Dr. Sanchez in March that did not show any malignant cells, looking black fluid results. Fluid was bloody with predominance of red cells and it was clearly exudative. 9. June chest x-ray showed bilateral pleural effusions. 10. History of an aortic stent graft. This was seen on an abdominal CT done in April 2020. 11. History of liver cyst seen on CT. 12. History of renal cysts. 13. History of diverticulosis. 14. History of pulmonary nodules seen on CT in March of last year in the right upper lobe. 15. History of BPH. 16. History of rectal bleeding in the past. 17. History of atrial fibrillation. 18. History of meniscus repair by arthroscopy in his right knee. SOCIAL HISTORY: He is a former smoker. He does not drink. FAMILY HISTORY: Negative for lung disease in early age. REVIEW OF SYSTEMS: [facility] only for history of shortness of breath. PHYSICAL EXAMINATION: VITAL SIGNS: Afebrile, heart rate is 89, respiratory rate is 20, oximetry is 97% on BiPAP, FiO2 is at 40%. Blood pressure 136/60. EYES: Pupils are equal. He appears older than his age. NECK: Supple. LUNGS: Remarkable for distant breath sounds. I do not hear any wheezing. HEART: Regular rhythm. ABDOMEN: Soft and nontender. EXTREMITIES: Without clubbing, cyanosis, or edema. IMAGING: Chest x-ray is remarkable for a right-sided effusion. Bibasilar pulmonary edema. IMPRESSION: 1. Bilateral pleural effusions. 2. Chronic obstructive pulmonary disease. 3. Probable diastolic dysfunction with a dilated left atrium on the left in last echocardiogram. PLAN: We will continue steroids nebulized treatments with magnesium. He appears comfortable at this time. Repeat thoracentesis might be considered. His pH is 7.38, CO2 of 51, pO2 of 66 today after lunch. Hopefully, we will improve with the above. Intake and output will be monitored. He is in negative fluid balance. He was seen and Lasix is ordered this afternoon. This is a 50 min consult with greater than 50% of the time spent on the unit with coordination of care. Job ID: [id number] MTDD
[2020-08-29] MEDS: cefTRIAXone\\ROCEPHIN 1 GM in Sodium Chloride 0.9% 100 ML IVPB SCH (21:46)
[2020-08-29] MEDS: Cholecalciferol 1,000 UNITS (25 MCG) TAB PO SCH (21:46)
[2020-08-29] MEDS: Rosuvastatin 10 MG TAB PO SCH (21:47)
[2020-08-29] MEDS: Azithromycin 500 MG in Sodium Chloride 0.9% 250 ML 250 ML IVPB SCH (21:53)
[2020-08-29] MEDS: Sodium Chloride 0.45% 1,000 ML IV SCH (22:04)
[2020-08-30] MEDS: methylPREDNISolone Sod Succ 40 MG VIAL IVP SCH ×3 (05:37→17:50)
[2020-08-30] MEDS ORDERED: Furosemide 20 MG/2 ML VIAL SLOW IVP SCH (08:15)
[2020-08-30] MEDS: Mometasone 200 MCG/Formoterol 5 MCG 120 PUFF INHALER INH SCH ×2 (08:21→18:24)
[2020-08-30] MEDS ORDERED: methylPREDNISolone Sod Succ 40 MG VIAL IVP SCH (09:00)
[2020-08-30] MEDS: Loratadine 10 MG TAB PO SCH (09:04)
[2020-08-30] MEDS: Allopurinol 300 MG TAB PO SCH (09:04)
[2020-08-30] MEDS: Aspirin 81 mg Enteric Coated Tablet PO SCH (09:04)
[2020-08-30] MEDS: Enoxaparin Sodium 40 MG/0.4 ML SYRINGE SC SCH (09:05)
--- NOTE | 2020-08-30 09:48 | RAD ---
EXAM: XR Chest 1 View Portable PROVIDED CLINICAL HISTORY: Pulmonary edema COMPARISON: 08/28/2020 FINDINGS: The cardiac silhouette remains enlarged. Median sternotomy changes are again seen. Right hemithoracic pleural parenchymal opacity and patchy left hemithoracic airspace disease appear radiographically similar. Prominence of the pulmonary vasculature persists. There is no evidence for pneumothorax. IMPRESSION: Stable radiographic appearance of the chest.
[2020-08-30 09:50] LABS: Anion Gap 15 mmol/L (10-20); BUN (Urea Nitrogen) 30 mg/dL (8.4-25.7); Calc. Creatinine Clearance 108 mL/min (70-130); Carbon Dioxide 30 mmol/L (23-31); Chloride 91 mmol/L (98-107); Glucose 125 mg/dL (83-110); Magnesium 2.6 mg/dL (1.6-2.6); Potassium 4.3 mmol/L (3.5-5.1); Sodium 132 mmol/L (136-145)
[2020-08-30] MEDS ORDERED: Metoprolol Tartrate 5 MG/5 ML VIAL IVP PRN (11:19)
[2020-08-30] MEDS ORDERED: Metoprolol Tartrate 25 MG TAB PO SCH (11:30)
--- NOTE | 2020-08-30 13:17 | PRG ---
DATE OF SERVICE: 08/30/2020 SUBJECTIVE: The patient has continued to do poorly, even off BiPAP. He does appear comfortable though. I had a long conversation with his . The patient was DNR prior to coming into the hospital. She says that he has not been eating very much since the thoracentesis was done back in March. He has lost all interest and he tells his that he is ready to . It has been my suspicion probably he has malignancy in the right chest. Cytology was initially negative and right now he is not a candidate to undergo any other operative procedure. PHYSICAL EXAMINATION: VITAL SIGNS: Today, pulse 97, O2 saturation 100% on 15 L, blood pressure 156/70. GENERAL: He looks pale and weak. HEENT: Unremarkable. NECK: No JVD. LUNGS: Poor air movement in the right base. Left side is clear. CARDIAC: S1, S2 regular. ABDOMEN: Soft. EXTREMITIES: No edema. LABORATORY DATA: Sodium 132, potassium 4.3, BUN 30, creatinine 0.7, glucose 125. IMAGING: His x-ray shows right pleural effusion. ASSESSMENT: I suspect the patient probably has malignancy in the right chest. He has had a severe downward over the last 4 months and I think that he is likely to succumb to this. I do not think he is a candidate for further intervention at this time. He certainly would not be a candidate for chemotherapy if cancer were to be found. The patient's is interested in palliative measures. It looks like that service was consulted yesterday. I will put a DNAR on the chart and we will focus more on palliative measures. Job ID: [id number]
--- NOTE | 2020-08-30 15:19 | PDOC.FMACP ---
Advance Care Planning - Problem (1) Palliative care encounter Status: Acute Code(s): Z51.5 - ENCOUNTER FOR PALLIATIVE CARE (2) CAD (coronary artery disease) Status: Chronic Code(s): I25.10 - ATHSCL HEART DISEASE OF [place] CORONARY ARTERY W/O ANG PCTRS Qualifiers: Coronary Disease-Associated Artery/Lesion type: bypass graft [place] vs. transplanted heart: [place] heart Associated angina: without angina Qualified Code(s): I25.810 - Atherosclerosis of coronary artery bypass graft(s) without angina pectoris (3) COPD (chronic obstructive pulmonary disease) Status: Chronic Qualifiers: COPD type: chronic bronchitis (4) Heart failure Status: Acute Code(s): I50.9 - HEART FAILURE, UNSPECIFIED - Note Participants: patient, palliative care Summary: Revisited Advanced Care Planning. The diagnosis, prognosis and goals of care were discussed. Appropriate forms and documentation to accomplish the goals of care were discussed. All questions were answered. Patient elected to complete MPOA and DNAR/OOHDNAR. Spouse and patient electing evaluation with [facility] to transition to home setting and have symptoms of chronic conditions and forgo aggressive measures and pursue comfort. Please also refer to Palliative notes in note section. Time Spent (mins): 20
--- NOTE | 2020-08-30 15:54 | PDOC.HOSPP ---
- Subjective Encounter Date: 08/30/20 Encounter Time: 09:30 Subjective: F/u: respiratory failure The patient was on BIPAP when I saw him this morning. Per nursing staff, he desaturated to 70% when they took it off last night. When I re-evaluated the patient later he was 3L saturating 93%. Heart rate was 120. ECHO was done this morning, report pending Patient's states patient has had history of afib s/p ablation and takes metoprolol 25 mg bid at home. Metoprolol 5 mg IV given as well. Patient transferred to monitored bed on stroke THe patient reports diminished appetite and does not want to eat. 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 Cytology then on thoracentesis showed no cancer cells. No intervention recommended by Dr. Melendez in outpatient setting - Objective Vital Signs & Weight: Vital Signs (12 hours) Temp Pulse Resp BP Pulse Ox 08/30/20 15:37 97.8 F 87 18 140/61 92 L 08/30/20 12:20 97.2 F L 103 H 22 H 141/69 H 100 08/30/20 11:43 97 22 H 156/70 H 100 08/30/20 09:05 95 08/30/20 08:21 86 24 H 96 08/30/20 08:19 80 24 H 96 08/30/20 07:36 96.3 F L 97 18 118/56 L 95 Weight Admit Weight 230 lb 8 oz Weight 227 lb 12.8 oz I&O: 08/29/20 08/30/20 08/31/20 06:59 06:59 06:59 Intake Total 0 410 Output Total 425 1050 375 Balance -425 -1050 35 Result Diagrams: 08/29/20 07:11 08/30/20 09:15 Hospitalist ROS - Review of Systems Constitutional: denies: fever, chills - Medication Medications: Active Medications Generic Name Dose Route Start Last Admin Trade Name Freq PRN Reason Stop Dose Admin Albuterol/Ipratropium 3 ml 08/29/20 02:30 08/30/20 14:17 Ipratropium/Albuterol Sulfate 3 Ml Neb NEB 3 ml [id number] SHARMIN Administration Allopurinol 300 mg 08/30/20 09:00 08/30/20 09:04 Allopurinol 300 Mg Tab PO 300 mg QAM SHARMIN Administration Aspirin 81 mg 08/30/20 09:00 08/30/20 09:04 Aspirin 81 Mg Enteric Coated Tablet PO 81 mg DAILY SHARMIN Administration Cholecalciferol 5,000 units 08/29/20 21:00 08/29/20 21:46 Cholecalciferol 1,000 Units (25 Mcg) Tab PO 5,000 units QPM SHARMIN Administration Enoxaparin Sodium 40 mg 08/29/20 09:00 08/30/20 09:05 Enoxaparin Sodium 40 Mg/0.4 Ml Syringe SC 40 mg 0900 SHARMIN Administration Azithromycin 500 mg/ Sodium 250 mls @ 250 mls/hr 08/29/20 22:00 08/29/20 21:53 Chloride IVPB 250 mls 2200 SHARMIN Administration Ceftriaxone Sodium 1 gm/ 100 mls @ 200 mls/hr 08/29/20 21:00 08/29/20 21:46 Sodium Chloride IVPB 100 mls 2100 SHARMIN Administration Sodium Chloride 1,000 mls @ 0 mls/hr 08/29/20 20:17 08/29/20 22:04 1/2 Normal Saline IV 1,000 mls .Q0M SHARMIN Administration KVO Loratadine 10 mg 08/30/20 09:00 08/30/20 09:04 Loratadine 10 Mg Tab PO 10 mg DAILY SHARMIN Administration Methylprednisolone Sodium Succinate 40 mg 08/29/20 18:00 08/30/20 11:40 Methylprednisolone Sod Succ 40 Mg Vial IVP 40 mg Q6HR SHARMIN Administration Mometasone Furoate/Formoterol Fumar 2 puff 08/29/20 18:30 08/30/20 08:21 Mometasone 200 Mcg/Formoterol 5 Mcg 120 Puff Inhaler INH 2 puff BID-RT SHARMIN Administration Rosuvastatin Calcium 10 mg 08/29/20 21:00 08/29/20 21:47 Rosuvastatin 10 Mg Tab PO 10 mg HS SHARMIN Administration Sertraline HCl 50 mg 08/29/20 21:00 08/29/20 21:47 Sertraline Hcl 100 Mg Tab PO 50 mg QPM SHARMIN Administration Sodium Chloride 10 ml 08/29/20 21:00 08/30/20 09:05 Flush - Normal Saline 10 Ml Syringe IVF 10 ml Q12HR SHARMIN Administration - Exam General Appearance: NAD, awake alert General - other findings: obese Eye: PERRL, anicteric sclera ENT: normocephalic atraumatic, no oropharyngeal lesions Neck: no JVD Heart: RRR, no murmur, no gallops, no rubs Respiratory: CTAB, no wheezes, no rales, no ronchi Gastrointestinal: soft, non-tender, non-distended, normal bowel sounds Extremities: no cyanosis, no clubbing, 2+ LE edema Hosp A/P - Plan Chest X ray 08/30: patchy left hemithoracic airspace disesae and right hemithoracic pleural parenchymal opacity . Prominence of pulmonary vasculature persists Chest CT 04/17: right pleural effusion, multiloculated right hemithorax. Pleural based nodules measuring 2.9 cm and 1.4 cm . RUL pulmonary nodule 1.5 cm. Nodula r left adrenal gland. This is an 85 year old male with past medical history of COPD, hypertension, abdominal aortic aneurysm presenting with shortness of breath. #Acute hypoxic respiratory failure secondary to possible COPD exacerbation vs CHF #Right pleural effusion #History of mitral valve prolapse #Tricuspid regurgitation ( moderate on last ECHO) - patient received IV lasix 40 mg 08/29. Repeat chest X ray still shows pleural effusion right side. Dr. Howard stated may need another thoracentesis? Last thoracentesis 04/20 showed no cancer cells - will give another 40 mg IV lasix today. Continue IV steroids. ABG shows improvement with pO2 increase to 60 - troponins are indeterminate, ECHO has been ordered. - family is interested in hospice. DNR has been signed and family plans to transition to home hospice on Thursday? #Atrial fibrillation #Type II NSTEMI - resume metoprolol 25 mg po bid - check ECHO CAD s/p CABG - continue aspirin and statin Abdominal aortic aneurysm s/p repair -stable, no symptoms Hypertension - hold medicine Gout - continue allopurinol Dispo: possible transition to hospice in 2 days
[2020-08-30] MEDS ORDERED: Furosemide 40 MG/4 ML VIAL SLOW IVP SCH (16:15)
[2020-08-30] MEDS: cefTRIAXone\\ROCEPHIN 1 GM in Sodium Chloride 0.9% 100 ML IVPB SCH (21:14)
[2020-08-30] MEDS: Metoprolol Tartrate 25 MG TAB PO SCH (21:15)
[2020-08-30] MEDS: Cholecalciferol 1,000 UNITS (25 MCG) TAB PO SCH (21:15)
[2020-08-30] MEDS: Rosuvastatin 10 MG TAB PO SCH (21:15)
[2020-08-30] MEDS: Azithromycin 500 MG in Sodium Chloride 0.9% 250 ML 250 ML IVPB SCH (22:33)
[2020-08-30] MEDS: Sodium Chloride 0.45% 1,000 ML IV SCH (22:39)
[2020-08-31] MEDS: methylPREDNISolone Sod Succ 40 MG VIAL IVP SCH ×2 (00:09→05:26)
[2020-08-31 05:21] LABS: Mean Corpuscular HGB CONC 32.9 g/dL (32.0-36.0); Mean Corpuscular Hemoglobin 28.3 pg (27.0-31.0); Mean Corpuscular Volume 85.9 fL (78.0-98.0); Mean Platelet Volume 7.5 fL (7.4-10.4); Platelet Count 134 thou/uL (130-400); RBC Distribution Width 13.5 % (11.5-14.5); Red Blood Cell (RBC) Count 4.24 mill/uL (4.70-6.10)
[2020-08-31 05:48] LABS: Anion Gap 14 mmol/L (10-20); BUN (Urea Nitrogen) 32 mg/dL (8.4-25.7); Calc. Creatinine Clearance 113 mL/min (70-130); Calcium 8.8 mg/dL (7.8-10.44); Carbon Dioxide 30 mmol/L (23-31); Chloride 92 mmol/L (98-107); Glucose 126 mg/dL (83-110); Potassium 4.1 mmol/L (3.5-5.1); Sodium 132 mmol/L (136-145)
[2020-08-31] MEDS: Mometasone 200 MCG/Formoterol 5 MCG 120 PUFF INHALER INH SCH (07:43)
[2020-08-31] MEDS: Loratadine 10 MG TAB PO SCH (08:51)
[2020-08-31] MEDS: Metoprolol Tartrate 25 MG TAB PO SCH (08:51)
[2020-08-31] MEDS: Enoxaparin Sodium 40 MG/0.4 ML SYRINGE SC SCH (08:51)
[2020-08-31] MEDS: Aspirin 81 mg Enteric Coated Tablet PO SCH (08:51)
[2020-08-31] MEDS: Allopurinol 300 MG TAB PO SCH (08:51)
--- NOTE | 2020-08-31 09:44 | RAD ---
Exam: Chest one view HISTORY:Shortness of breath. Reevaluate pulmonary edema. Comparison: 08/30/2019 FINDINGS: Cardiac silhouette:Stable cardiomegaly, sternotomy wires and atherosclerosis. Aorta: Stable atherosclerosis Pulmonary vessels: Normal Costophrenic angles: Persistent bilateral effusions. LUNGS: Stable parenchymal opacities. Pneumothorax: None Osseous abnormalities: None IMPRESSION: No significant change.
--- NOTE | 2020-08-31 11:00 | PRG ---
DATE OF SERVICE: 08/31/2020 SUBJECTIVE: The patient is more obtunded, apparently going home on hospice. PHYSICAL EXAMINATION: VITAL SIGNS: On exam, his O2 saturations in the 80s on Ventimask. HEENT: Unremarkable. NECK: No JVD. LUNGS: Poor air movement. CARDIAC: S1 and S2. Regular. ABDOMEN: Soft. EXTREMITIES: No edema. ASSESSMENT: See my note yesterday. Probably has cancer/pleural effusion. PLAN: is very comfortable with hospice care at this point. I would not entertain any further procedures, medications, or alternative diagnoses. Recall if needed. Job ID: [id number]
[2020-08-31 11:21] VITALS: BP 169/77; TEMP 97.9
--- NOTE | 2020-08-31 19:11 | PDOC.DS.DS ---
Provider - Provider Date of Admission: 08/28/20 23:49 Date of Discharge: 08/31/20 Admitting Provider: Bob Matson MD Consultations: Pulmonary (Dr. Franki Howard and Suhail Sanchez) Primary Care Physician: Jakob Vasquez MD Course - Hospital Course Hospital Course: Discharge Diagnoses: 1. Acute hypoxic respiratory failure possibly secondary to COPD excerbation vs acute diastolic heart failure vs undiagnosed malignancy Brief HPI: This is an 85-year-old male with a past medical history of COPD, CAD status post CABG, A. fib presented to the hospital with worsening shortness of breath. He was hypoxic at 83% on room air. Patient had chest x-ray that showed some pulmonary edema and possible superimposed infiltrates. He was given ceftriaxone and azithromycin and 40 mg of IV Lasix and admitted for further work-up. Hospital Course: Acute hypoxic respiratory failure possibly secondary to COPD excerbation vs acute diastolic heart failure vs undiagnosed malignancy: Patient was initially placed on nasal cannula. However he was very hypoxic on this. ABG showed a PO2 of 40. He was placed on BiPAP for 24 hours. He was placed on IV steroids 40 mg q6 hours and was given an additional 60 mg IV lasix due to pulmonary edema. Repeat ABG showed improvement in his PO2 to 60. He was transitioned to a non- rebreather the following day, but desaturated to 87% on the non-rebreather. Repeat chest X ray on 08/31 showed persistent mild pulmonary congestion. He seemed to have a pleural effusion on the right lung. The patient did have a thoracentesis of this in March 2020 which showed no malignancy. He had a CT chest in March 2020 which showed some pleural based masses and was seen by a cardiovascular surgeon earlier this year who did not think the patient needed surgery. Pulmonary was consulted and felt the patient possibly may have an undiagnosed malignancy. He spoke with the family and suggested that he be a DNR. Due to no significant improvement in the patient's respiratory status, palliative care was consulted and hospice. The patient was seen by speech therapy and refused to eat and was not deemed safe to eat due to his high oxygen requirements. He was accepted to home hospice and will continue all of his home meds and breathing treatments. He was discharged on cefdinir and azithromycin to complete a seven day course of antibiotics. Atrial fibrillation: he was continued on his metoprolol 25 mg bid. ECHO showed an EF of 50-55% and elevated right ventricular systolic pressure. Troponins were mildly elevated at 0.052 .Cardiology was not consulted since the patient elected to proceed with hospice and he was unable to swallow any oral medicines unless they were crushed in apple sauce. Pertinent Studies: Chest X ray 08/30: prominent pulmonary vasculature. Right hemothoracic pleural parenchymal opacity and patchy left hemithoracic irspace disease. Prominence of pulmonary vasculature ChesT x ray 08/31: no significant change ECHO 08/30: EF 50-55%, grade 2/3 diastolic dysfunction, mild MR, elevated right ventricular systolic pressure at 45 Resuscitation Status: 08/30/20 12:54 Resuscitation Status Routine Resuscitation Status: DNAR: NO Resuscitation Discussed with: Dr. Sanchez d/w - Labs Lab Results: 08/31/20 04:37 08/31/20 04:37 Abnormal Lab Results - Last 48 hrs 08/29/20 19:42: Troponin I 0.041 H 08/30/20 09:15: Sodium 132 L, Chloride 91 L, BUN 30 H 08/31/20 04:37: Sodium 132 L, Chloride 92 L, BUN 32 H 08/31/20 04:37: RBC 4.24 L, Hgb 12.0 L, Hct 36.4 L Microbiology - Entire Visit 08/28/20 23:16 Venous blood - Left Hand Blood Culture - Preliminary NO GROWTH AT 48 HOURS 08/28/20 23:16 Venous blood - Left Arm Blood Culture - Preliminary NO GROWTH AT 48 HOURS - Physical Exam Vitals: Vital Signs (12 hours) Temp Pulse Resp BP Pulse Ox 08/31/20 12:00 98 08/31/20 11:19 97.9 F 111 H 20 169/77 H 89 L 08/31/20 10:51 102 H 28 H 88 L 08/31/20 07:42 96 24 H 91 L 08/31/20 07:20 97.5 F L 95 22 H 163/72 H 91 L Weight Admit Weight 230 lb 8 oz Weight 230 lb 11.2 oz Physical Exam: The patient was seen and examined on the day of discharge. General: patient is alert, awake, oriented times three CVS: RRR, no murmurs, rubs, gallops Lungs: diminished breath sounds bilaterally Abdomen: obese, nontender, nondistended Extremities: mild edema Problem - Time spent with Patient (mins): 35 Plan - Discharge Medications Prescriptions: Cefdinir 300 mg PO Q12HR #8 capsule Azithromycin 250 mg PO DAILY #2 tablet Furosemide 20 mg PO DAILY #30 tablet Home Medications: Medication Instructions Recorded Confirmed Type Budesonide-Formoterol [Symbicort 2 puff INH BID 01/17/14 08/29/20 History 160-4.5] Allopurinol 300 mg PO QAM 11/08/14 08/29/20 History Lisinopril 40 mg PO QPM 11/08/14 08/29/20 History Magnesium Oxide [Magnesium] 500 mg PO BID 11/08/14 08/29/20 History Aspirin [Ecotrin Low Strength] 81 mg PO DAILY 09/18/18 08/29/20 History Cetirizine HCl [Zyrtec] 10 mg PO DAILY 09/18/18 08/29/20 History Rosuvastatin Calcium 10 mg PO HS 09/18/18 08/29/20 History Metoprolol Tartrate [Lopressor] 25 mg PO BID 10/19/18 08/29/20 History Calcium Carbonate [Calcium] 1,200 mg PO BID 08/29/20 08/29/20 History Cholecalciferol (Vitamin D3) 1 capsule PO QPM 08/29/20 08/29/20 History [Vitamin D3] Sertraline HCl [Zoloft] 50 mg PO QPM 08/29/20 08/29/20 History Azithromycin 250 mg PO DAILY #2 tablet 08/31/20 Rx Cefdinir 300 mg PO Q12HR #8 capsule 08/31/20 Rx Furosemide 20 mg PO DAILY #30 tablet 08/31/20 Rx Allergies: No Known Allergies Allergy (Verified 08/29/20 04:09) - Discharge Instructions Activity:: Activity as Tolerated Nourishment:: Heart Healthy Diet - Follow up Plan Referrals: Suhail Sanchez MD [Active] - (Call Dr. Sanchez for any questions) Jakob Vasquez MD [Primary Care Provider] - (Call your primary care provider for any questions.) Disposition: HOSPICE-HOME Quality - Care Measures CORE MEASURES:: N/A
[2020-09-01] MEDS ORDERED: Aspirin Chewable 81 MG TAB PO SCH (09:00)
--- NOTE | 2020-09-03 01:37 | PQF ---
CLINICAL DOCUMENTATION CLARIFICATION FORM: Dear : Carina Vargas Date / Time: 09/03/20136 Please exercise your independent, professional judgment in responding to the clarification form. Clinical indicators are provided on the bottom of this form for your review Please check appropriate box(es): [ ] Aspiration Pneumonia [ ] Empirically treating Gram Negative Pneumonia [ ] Empirically treating Anaerobic Pneumonia [ ] Simple Pneumonia [ ] Pneumonia of unknown etiology [ ] Other diagnosis [ ] Unable to determine Physician Signature: Date/Time: For continuity of documentation, please document condition throughout progress notes and discharge summary. Thank You. To be completed by CDI/Coding staff for physician review: Present Clinical Indicators - Signs / Symptoms / Labs Results and Location in Medical Record [x] WBC 10.3, Plt count 180, neutrophils 87.4 Laboratory 08/29 [x] BP 151/66, Pulse 93, Resp 26, Temp 98.4 Vital signs 08/28 [x] Chest X-ray: Right hemithoracic pleural parenchymal opacity and patchy left hemithoracic airspace disease appear radiographically similar Imaging Dr De La Rosa 08/30 [x] Presented with SOB H&P p1 08/28 Dr Matson [x] Acute hypoxic respiratory failure, in the stting o heart failure, COPD and Pneumonia H&P p2 08/28 Dr Matson [x] Pneumonia to rule out aspiration H&P p3 08/28 Dr Matson Present Risk Factors Results and Location in Medical Record [x] 85 year-old Male H&P p1 08/28 Dr Matson [x] COPD H&P p1 08/28 Dr Matson [x] HTN H&P p1 08/28 Dr Matson [x] CHF H&P p1 08/28 Dr Matson Present Treatments Results and Location in Medical Record [x] IVF NS 1L MAR 08/29 [x] IV Solu Medrol 40 mg MAR 08/29 [x] IV Ceftriaxone 2 gm MAR 08/28 [x] IV Azithromax 500 mg OCT 22 [x] Bipap Order 08/29 [x] Swallow Study H&P p3 08/28 Dr Matson [x] Speech Therapy H&P p3 08/28 Dr Matson CDS/Mopper Signature: Rylie Sotelo Phone #: [phone] Date/Time: 09/03/20136 This is a permanent part of the Medical Record [facility]
== END 2020-08-31 12:21 | disposition hospice, home (50) | DRG 180 ==
LOC: ERS 22:41 → ONC 23:49 → 2SE 08-30 12:22
PROVIDERS: ADMIT Student in an Organized Health Care Education/Training Program; ATTEND Internal Medicine
PROC: 5A09357 Assistance with Respiratory Ventilation, Less than 24 Consecutive Hours, Continuous Positive Airway Pressure (ICD-10-PCS; principal; 2020-08-29)
DX: C78.2 Secondary malignant neoplasm of pleura (principal); J96.01 Acute respiratory failure with hypoxia; I50.33 Acute on chronic diastolic (congestive) heart failure; Z66 Do not resuscitate; Z51.5 Encounter for palliative care; Z20.822 Contact with and (suspected) exposure to COVID-19; J18.9 Pneumonia, unspecified organism; J44.1 Chronic obstructive pulmonary disease with (acute) exacerbation; E87.1 Hypo-osmolality and hyponatremia; I11.0 Hypertensive heart disease with heart failure; I25.10 Atherosclerotic heart disease of native coronary artery without angina pectoris; I48.91 Unspecified atrial fibrillation; M10.9 Gout, unspecified; I08.3 Combined rheumatic disorders of mitral, aortic and tricuspid valves; N40.0 Benign prostatic hyperplasia without lower urinary tract symptoms; C80.1 Malignant (primary) neoplasm, unspecified; Z95.1 Presence of aortocoronary bypass graft; Z90.79 Acquired absence of other genital organ(s); Z99.81 Dependence on supplemental oxygen; Z95.9 Presence of cardiac and vascular implant and graft, unspecified; Z87.891 Personal history of nicotine dependence; Z79.899 Other long term (current) drug therapy; Z79.51 Long term (current) use of inhaled steroids
CPT/HCPCS: 36415; 36600; 71045; 80048; 82553; 82805; 83735; 84484; 85025; 85027; 87040; 93005; 93010; 93306; 94640; 94660; 96365; 96366; 96375; J0456; J0696; J1650; J1940; J2920; J3475; J3490; J7050; J7620